=== PATIENT | female | born 1965 | race Caucasian/White ===

== ENCOUNTER 2016-10-22 13:46 | Emergency (ER) | payer MEDICAID ==
[2016-07-25 13:01] VITALS: BMI 46.9
[~2016-10-22 13:46] MED LIST: ABILIFY20 MG; BACTRIM DS TABL1 TAB PO; DEPAKOTE500 MG PO; DESERYL100 MG PO; HYDROCODONE-APA1 TAB PO; HYDROXYZINE HCL50 MG PO; INDOCIN25 MG PO; NEURONTIN800 MG PO; REPREXAIN 10-21 EACH PO
[2016-10-22 15:26] LABS: BASOPHILS 0.1 % (0.0-2.0); EOSINOPHILS 2.3 % (0-7); HEMATOCRIT 36.5 % (36.0-48.0); HEMOGLOBIN 12.3 g/dL (12-16); IMMATURE GRANULOCYTES 0.5 % (0-5); LYMPHOCYTES 18.6 % (15-50); MCH 30.4 pg (26.0-34.0); MCHC 33.7 g/dL (31.0-37.0); MCV 90.3 fL (80.0-100.0); MEAN PLATELET VOLUME 8.9 fL (7.4-10.4); MONOCYTES 5.3 % (2-11); NEUTROPHILS 73.2 % (40-80); PLATELET COUNT 314 10x3/uL (130-400); RBC 4.04 10x6/uL (4.00-5.40); RDW 12.8 % (11.5-14.5); WBC 12.3 10x3/uL (4.8-10.8)
[2016-10-22 15:42] LABS: ALBUMIN 3.2 g/dL (3.4-5.0); ALKALINE PHOSPHATASE 83 U/L (46-116); ALT (SGPT) 15 U/L (10-68); CALC OSMOLALITY 274 mosm/kg (275-300); CALCIUM 9.2 mg/dL (8.5-10.1); CARBON DIOXIDE 25.8 mmol/L (21.0-32.0); CHLORIDE - SERUM 101 mmol/L (98-107); CREATININE - SERUM 0.7 mg/dL (0.6-1.3); GLUCOSE 82 mg/dL (74-106); POTASSIUM - SERUM 4.1 mmol/L (3.5-5.1); PROTEIN - SERUM 7.7 g/dL (6.4-8.2); SODIUM 139 mmol/L (136-145); UREA NITROGEN 6 mg/dL (7-18); eGFR NON AFRICAN AMERICAN > 90 mL/min (90-120)
== END 2016-10-22 17:44 | disposition home or self-care (01) ==
LOC: D.ER 13:46
PROVIDERS: Nurse Practitioner Acute Care
DX: L03.113 Cellulitis of right upper limb (principal); F17.200 Nicotine dependence, unspecified, uncomplicated; I50.9 Heart failure, unspecified

== ENCOUNTER 2017-08-20 13:12 | Emergency (ER) | payer MEDICAID ==
[2016-07-25 13:01] VITALS: BMI 46.9
[2017-08-20 13:50] LABS: BASOPHILS 0.1 % (0-2); EOSINOPHILS 3.1 % (0-7); HEMATOCRIT 40.7 % (36.0-48.0); HEMOGLOBIN 13.8 g/dL (12-16); IMMATURE GRANULOCYTES 0.3 % (0-5); LYMPHOCYTES 41.7 % (15-50); MCH 30.8 pg (26.0-34.0); MCHC 33.9 g/dL (31.0-37.0); MCV 90.8 fL (80.0-100.0); MEAN PLATELET VOLUME 8.9 fL (7.4-10.4); MONOCYTES 8.5 % (2-11); NEUTROPHILS 46.3 % (40-80); PLATELET COUNT 327 10x3/uL (130-400); RBC 4.48 10x6/uL (4.00-5.40); RDW 12.5 % (11.5-14.5); WBC 7.2 10x3/uL (4.8-10.8)
[2017-08-20 14:04] LABS: ALBUMIN 3.4 g/dL (3.4-5.0); ANION GAP 14.5 mmol/L (8-16); BILIRUBIN - TOTAL 0.13 mg/dL (0.2-1.3); CALCIUM 8.9 mg/dL (8.5-10.1); CARBON DIOXIDE 27.1 mmol/L (21.0-32.0); CREATININE - SERUM 0.9 mg/dL (0.6-1.3); POTASSIUM - SERUM 4.6 mmol/L (3.5-5.1); PROTEIN - SERUM 7.4 g/dL (6.4-8.2)
[2017-08-20 15:22] LABS: APPEARANCE CLEAR (CLEAR); BILIRUBIN NEGATIVE (NEGATIVE); COLOR YELLOW (YELLOW); GLUCOSE NEGATIVE (NEGATIVE); KETONE NEGATIVE (NEGATIVE); NITRITE NEGATIVE (NEGATIVE); PROTEIN NEGATIVE (NEGATIVE); UROBILINOGEN NORMAL (NORMAL)
[2017-08-20 15:24] LABS: BACTERIA FEW /hpf (NONE SEEN); EPITHELIAL CELLS 0-5 /hpf (0-5); RED CELLS - URINE OCC /hpf (0-5)
[2017-08-20 15:41] LABS: UDS - AMPHET POSITIVE QUAL (NEGATIVE); UDS - BARB NEGATIVE QUAL (NEGATIVE); UDS - BENZO NEGATIVE QUAL (NEGATIVE); UDS - COCAINE NEGATIVE QUAL (NEGATIVE); UDS - OPIATE NEGATIVE QUAL (NEGATIVE); UDS - PCP NEGATIVE QUAL (NEGATIVE); UDS - THC NEGATIVE QUAL (NEGATIVE)
== END 2017-08-20 21:04 | disposition short-term general hospital (02) ==
LOC: D.ER 13:12
PROVIDERS: Family Medicine
DX: F31.9 Bipolar disorder, unspecified (principal); I50.9 Heart failure, unspecified; F17.200 Nicotine dependence, unspecified, uncomplicated

== ENCOUNTER 2019-03-26 00:06 | Inpatient (IN) | payer MEDICARE, MEDICAID ==
[~2019-03-26] VITALS: Ht 167.6 cm; Wt 122.7 kg
--- NOTE | ~2019-03-26 | HEMODYNAMI ---
PATIENT:ALEXIA GARG MEDICAL RECORD: [id number] : 61 LOCATION:D.MS [place]2206 ADMISSION DATE: 03/26/19 Generatedon:03/26/201910:52 Patient name: ALEXIA GARG Patient #: [id number] SSN: : 1965 Date of study: 03/26/2019 Page: Of Hemodynamic Procedure Report Patient Data Patient Demographics Procedure consent was obtained First Name: ALEXIA Gender: Female Last Name: BRITANY : 1965 Middle Initial: STEFFANIE Age: 53 year(s) Patient #: [id number] Race: Unknown Additional ID: [id number] Contact details [address]: [address] [place] [address] State: [place] City: [place] Zip code: [address] Past Medical History Allergies Allergen Reaction Date Comments Reported Other allergy 03/26/2019 ASA,TYLENOL,AND GABAPENTON Admission Admission Data Admission Date: 03/26/2019 Admission Time: 2:10 Room #: D.2206 Procedure Procedure Types Cath Procedure Peripheral Cath Diagnostic Procedure Miscellaneous Aspiration/Injection (Joint) Procedure Description Procedure Date Procedure Date: 03/26/2019 Procedure Start Time: 10:36 Procedure Staff Name Function Anita Hairston MD Performing Physician Lazaro Galeana RT Monitor Procedure Data Cath Procedure Fluoroscopy Diagnostic fluoroscopy Total fluoroscopy Time: 0.4 time: 0.4 min min Diagnostic fluoroscopy Total fluoroscopy dose: 16 dose: 16 mGy mGy Hemodynamics Rest Pre Cath Intra NCS Post Cath Procedure Log Time Note 10:05:45 Procedure type changed to Cath procedure, Peripheral Cath Diagnostic Procedure, Miscellaneous, Aspiration/Injection (Joint) 10:22:23 Lazaro Galeana RT (R) (CV) sent for patient. Start room use. 10:24:30 Patient received from Med/Surg to IR Alert and oriented. Tansferred to table in Supine position. 10:24:31 Correct patient and procedure confirmed by team. 10:24:35 Signed procedure consent form obtained from patient. 10:24:40 Full Disclosure recording started 10:24:40 - 10:24:41 Pre-procedure instructions explained to patient. 10:24:42 Pre-op teaching completed and patient verbalized understanding. 10:25:05 Patient allergic to Other allergyASA,TYLENOL,AND GABAPENTON 10:25:09 Is patient on blood thinner?No 10:25:21 Right Hip was prepped with chlora-prep and draped in sterile fashion. 10:36:11 Physician arrived 10:36:11 --------ALL STOP TIME OUT------ 10:36:12 Final Timeout: patient, procedure, and site verified with staff and physician. All members of the team are in agreement. 10:36:13 Right groin site verified by team. 10:36:18 Sedation plan: Local Anesthetic Medication:Lidocaine 10:36:26 Procedure started. 10:36:30 Local anesthetic to right GROIN with Lidocaine 1% by Anita Hairston MD.INITIAL ACCESS ONLY 10:36:42 SAFE-T PLUS MYELOGRAM TRAY opened to sterile field. 10:49:40 Procedure ended.(Physican Out) 10:50:13 Fluoroscopy time 00.40 minutes. 10:50:25 Fluoroscopy dose: 16 mGy 10:50:25 Flurop Dose total: 16 10:51:44 BANDAIDE APPLIED TO SITE SITE STABLE 10:51:49 Report given to Med/Surg. 10:51:53 Patient transfered to Med/Surg with Bed. Device Usage Item Name Manufacture Quantity Catalog Hospital Part Current Minimal Lot# / Number Charge Number Stock Stock Serial# Code SAFE-T CareFusion 1 [id number] PLUS MYELOGRAM TRAY Signature Audit Lawrence Stage Time Signature Unsigned Intra-Procedure 03/26/2019 Lazaro 10:52:09 AM Kervin RT (R) (CV) Signatures Monitor : Lazaro Signature : Kervin RT Date : Time : [place] [address] [place] [address]
[~2019-03-26 00:06] MED LIST changes: -DESERYL100 MG PO; +TRAZODONE HCL150 MG PO
--- NOTE | 2019-03-26 00:25 | NUR ---
PT TO XRAY
[2019-03-26 01:18] LABS: BASOPHILS 0.2 % (0-2); EOSINOPHILS 2.6 % (0-7); HEMATOCRIT 35.2 % (36.0-48.0); IMMATURE GRANULOCYTES 0.3 % (0-5); MCH 30.5 pg (26.0-34.0); MCHC 34.1 g/dL (31.0-37.0); MCV 89.3 fL (80.0-100.0); MEAN PLATELET VOLUME 9.4 fL (7.4-10.4); MONOCYTES 10.5 % (2-11); NEUTROPHILS 54.4 % (40-80); RBC 3.94 10x6/uL (4.00-5.40); RDW 14.1 % (11.5-14.5); WBC 10.5 10x3/uL (4.8-10.8)
[2019-03-26 01:19] LABS: PLATELET COUNT 237 10x3/uL (130-400)
[2019-03-26 01:33] LABS: ALBUMIN 3.6 g/dL (3.4-5.0); ALKALINE PHOSPHATASE 58 U/L (46-116); ALT (SGPT) 13 U/L (10-68); CALC OSMOLALITY 279 mosm/kg (275-300); CALCIUM 8.4 mg/dL (8.5-10.1); CARBON DIOXIDE 28.3 mmol/L (21.0-32.0); CHLORIDE - SERUM 105 mmol/L (98-107); CREATININE - SERUM 0.8 mg/dL (0.6-1.3); GLUCOSE 120 mg/dL (74-106); POTASSIUM - SERUM 4.1 mmol/L (3.5-5.1); PROTEIN - SERUM 6.9 g/dL (6.4-8.2); SODIUM 139 mmol/L (136-145); UREA NITROGEN 15 mg/dL (7-18); eGFR NON AFRICAN AMERICAN 79 mL/min (90-120)
[2019-03-26 01:56] LABS: APPEARANCE CLEAR (CLEAR); BILIRUBIN NEGATIVE (NEGATIVE); COLOR YELLOW (YELLOW); GLUCOSE NEGATIVE (NEGATIVE); KETONE NEGATIVE (NEGATIVE); NITRITE NEGATIVE (NEGATIVE); PROTEIN NEGATIVE (NEGATIVE)
[2019-03-26 02:01] LABS: BACTERIA NONE SEEN /hpf (NONE SEEN); EPITHELIAL CELLS 0-5 /hpf (0-5); RED CELLS - URINE NONE SEEN /hpf (0-5); WHITE CELLS - URINE 0-5 /hpf (0-5)
--- NOTE | 2019-03-26 02:31 | NUR ---
REPORT CALLED TO KENZIE MCKEON.
[2019-03-26 03:02] VITALS: BP 148/84; Ht 167.6 cm; Wt 122.7 kg
--- NOTE | 2019-03-26 03:13 | NUR ---
PT ARRIVED TO FLOOR WITHOUT DISTRESS, ALERT AND ORIENTED. TRANSFERED PT TO BED FROM [facility]. IV RIGHT SHOULDER SL. PT INCONTINENT OF BOWEL, PROVIDED AGUEDA CARE AND CHANGED LINEN. CECILIA ON. CL IN REACH, WILL CTM
[2019-03-26 05:23] VITALS: BP 148/84
[2019-03-26 08:44] VITALS: BP 146/59
[2019-03-26] MEDS ORDERED: DEPAKOTE500 MG PO (09:06)
[2019-03-26] MEDS ORDERED: LYRICA50 MG PO (09:06)
[2019-03-26] MEDS ORDERED: ZANAFLEX4 MG PO (09:07)
[2019-03-26] MEDS ORDERED: LATUDA80 MG PO (09:07)
[2019-03-26] MEDS ORDERED: CYMBALTA60 MG PO (09:08)
[2019-03-26] MEDS ORDERED: FUROSEMIDE40 MG PO (09:08)
[2019-03-26 10:21] LABS: UDS - AMPHET NEGATIVE QUAL (NEGATIVE); UDS - BARB NEGATIVE QUAL (NEGATIVE); UDS - BENZO NEGATIVE QUAL (NEGATIVE); UDS - COCAINE NEGATIVE QUAL (NEGATIVE); UDS - OPIATE POSITIVE QUAL (NEGATIVE); UDS - PCP NEGATIVE QUAL (NEGATIVE); UDS - THC NEGATIVE QUAL (NEGATIVE)
--- NOTE | 2019-03-26 10:24 | NUR ---
TO IR PER BED FOR PROCEDURE. PT REMAINS NPO FOR POSSIBLE SURG
--- NOTE | 2019-03-26 11:26 | NUR ---
RETURNED FROM IR PER BED. PREOP FOR SURG
--- NOTE | 2019-03-26 11:48 | NUR ---
MONITOR SHOWS SR RATE 68. RESTING WITH EYES CLOSED BUT AROUSES EASILY
--- NOTE | 2019-03-26 11:55 | NUR ---
TO SURGERY PER BED
--- NOTE | 2019-03-26 13:29 | NUR ---
PLASMA BLADE SET6/8 BOVIE PAD LEFT THIGH [id number] EXP 11/05/20
--- NOTE | 2019-03-26 17:30 | NUR ---
XRAY COMPLETED ORDERED. SWITCHED PT TO NC @4L WITH PULSE OX OF 100% WILL CONTINUE TO TAPER AVAILABLE. DEMEROL HELPED WITH PAIN AND SHIVERING AND COLDNESS. WARM BLANKETS IN PLACE. PT NOW RESTING QUIETLY IN BED WITH EYES CLOSED. WILL CTM.
[2019-03-26 18:06] VITALS: BP 138/68
--- NOTE | 2019-03-26 18:42 | NUR ---
RECEIVED PT BACK FROM PACU. PT REQUESTED PAIN MEDICATIONA ND STATED SHE IS STILL HURTING, PT IN AND OUT OF SLEEP WHILE DOING HANDOFF WITH PACU NURSE. PT HAS ZANAFLEX ORDERED, ADVISED I CAN GIVE HER THAT BUT WILL WAIT ON PAIN MEDS DUE TO THE FACT SHE ALSO HAD A BLOCK. NO OTHER NEEDS CONTINUE WITH PLAN OF CARE
[2019-03-26 19:14] LABS: % SATURATION 27 % (15-55); IRON 87 ug/dl (35-150); TOTAL IRON BIND CAPACITY 311 ug/dl (260-445); UNSAT IRON BIND CAPACITY 224 ug/dl (150-375)
--- NOTE | 2019-03-26 19:40 | NUR ---
LYING IN BED. ALERT BUT CONFUSED AT TIMES. STATES HER CATHETER IS LEAKING. DIAZ CATHETER WAS LEAKING INTO BED. DIAZ CATH REMOVED AND NEW 16 SAO TOMEAN DIAZ INSERTED AT THIS TIME WITH IMMEDIATE RETURN OF CLOUDY YELLOW URINE. PT KYLIE WELL AND STATES IT FELT BETTER. RESP EVEN AND NONLABORED. PREVENA WOUND VAC NOTED TO RT THIGH/HIP REGION WITH NO DRAINAGE NOTED. PEDAL PULSES WNL. 1/2 NS @ 50 MLHR INFUSING IN LT AC WITHOUT DIFF. SALINE LOCK NOTED TO RT FOREARM. NO EDEMA NOTED. CECILIA ALARM IN USE FOR PT SAFETY. SIGNIFICANT OTHER AT BEDSIDE.
[2019-03-26 21:25] VITALS: BP 107/56
--- NOTE | 2019-03-26 23:45 | NUR ---
HAS BEEN EATING SANDWICH AND SNACKS. C/O PAIN "ALL OVER". MEDICATED WITH OXY IR 5MG ORDERED. ARGUING WITH SIG OTHER AT BEDSIDE.
--- NOTE | 2019-03-27 01:10 | NUR ---
SECURITY CALLED DUE TO PT AND SIG OTHER ARGUING AND YELLING. SIG OTHER HAD BEEN ADVISED TO LEAVE EARLIER. SIG OTHER ESCORTED OUT PER SECURITY.
[2019-03-27 02:22] VITALS: BP 152/73
--- NOTE | 2019-03-27 05:30 | NUR ---
MEDICATED WITH OXY IR 10 MG FOR C/O PAIN IN RT HIP. EXTREMELY TALKATIVE WITH FLIGHT OF IDEAS. VERBALLY DISRUPTIVE. CL IN REACH.
[2019-03-27 05:55] VITALS: BP 133/68
--- NOTE | 2019-03-27 06:31 | OP ---
PATIENT NAME: ALEXIA GARG MEDICAL RECORD: [id number] :61 LOCATION:D.MS [place]6 ADMISSION DATE:03/26/19 SURGEON: BASILIO NIETO DO DATE OF OPERATION: 03/26/2019 PROCEDURE PERFORMED: Right total hip arthroplasty. PREOPERATIVE DIAGNOSIS: Right hip avascular necrosis femoral head. POSTOPERATIVE DIAGNOSIS: Right hip avascular necrosis femoral head. INDICATIONS: Ms. Garg is a 53-year-old female who has had AVN of the right femoral head for some time. She has been seen by another orthopedic surgeon that she said would not do anything for her because of her weight and she fell last night on her hip and could not bear weight after falling on it. She has been dealing with this for quite some time. 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 I did inform her that I may not be able to get her to the proper length due to her shortening of the hip. She is aware that and the risk of damage to nerves and vessels in the area, need for further surgery, fracture, bleeding and blood clots and even . She is aware that risks and signed consent. SURGEON: Basilio Nieto DO DESCRIPTION OF PROCEDURE: The patient was taken to the operative suite, laid in supine position, sedated and intubated and then moved over to the [place] table. The right hip was prepped and draped in sterile fashion. A time out was performed, everyone was in agreement as to the correct side, site, patient and procedure. Incision then began over the tensor fascia jesse. Careful dissection was made down to the fascia, this was incised. Muscle belly was taken posteriorly and then the fascia anteriorly opening up the rectus interval. Rectus was then opened and taken medially and the tensor fascia jesse laterally. Then, I encountered the ascending branch of the lateral femoral circumflex. This was tied off and coagulated with the Aquamantys. The capsule was then exposed with Homans' around the neck and the capsule was then opened and tagged. The patient has severe femoral head deformity. The neck cut was made and the neck was removed and then all the soft tissue that remained what was left of the head was removed. The acetabulum was somewhat dysplastic and this took a lot of debriding in order to get to the acetabulum due to all the soft tissue. What I assume was the femoral head pieces that were left around the capsule. We then medialized and then reamed up to a 53 and then impacted a 54 osteotech cup and put 2 screws in the posterior superior quadrant, securing the cup. It was a very secure and tight and then a liner was placed and impacted. The femur was then exposed first using a canal finder Java[employer] cutter, then broaching to a 15. A 14 was trialled. This seemed to be quite a bit short with a -3 noticing that was quite a bit short decided to go up to a 15. Since 14 was loose. We dislocated the hip. I went up to 15 and then with did a +6 neck and filled it as long as we can get her in the close we get to equaling her leg lengths. This hip was then reduced and x-ray appeared that she had a lateral wall fracture of the femur; however, it was not confirmed. In doing that just to be safe, I put 2 abdominal cables around the femur around the stem 1 just below the lesser and then 1 more distal and OPERATIVE REPORT [id number] ALEXIA GARG tightening them down and cramping in the cut and this was then x-rayed and no fractures were seen. Following that we could tell if there is soft tissue in the area, but either way was secured and then the site was thoroughly irrigated and vancomycin and tobramycin powder was placed as well as Surgicel powder. The capsule was left open and then the fascia was closed with 0 Vicryl in a rfhyya-yu-zwlwa and running locking stitch and then the skin was closed with 2-0 Vicryl in inverted interrupted fashion, 4-0 Monocryl in the skin. A Prevena VAC was placed on the patient. She was then awakened and taken to recovery in stable condition. COMPLICATIONS: Periprosthetic femur fracture with fixation. The blood loss approximately 400 mL. COMPLICATIONS: As above. TRANSINT:[id number] Voice Confirmation ID: [id number] DOCUMENT ID: [id number] BASILIO NIETO DO at 0631 CC: [id number] DICTATION DATE: 03/26/19 1649 TALENT ACQUISITION DIRECTOR: 03/26/19 2210 ADM IN [place] [id number] [place] [id number]
--- NOTE | 2019-03-27 07:42 | NUR ---
AWAKE AND ALERT. ORIENTED X3. NO C/O AT THIS TIME. LLUNGS ARE CLEAR BILATERALLY, NO COUGH NOTED. SKIN IS INTACT WITHOUT REDNESS EXCEPT INCISION TO RIGHT HIP WHICH HAS A PROVEENA IN PLACE WITH SCANT DRAINAGE. IV TO RIGHT FOREARM IS PATENT WITHOUT REDNESS AT INSERTION SITE. DENIES NEEDS. DIAZ PATETN WITH CLEAR YELLOW URINE.
[2019-03-27 08:00] LABS: CALC OSMOLALITY 273 mosm/kg (275-300); CALCIUM 7.4 mg/dL (8.5-10.1); CARBON DIOXIDE 25.6 mmol/L (21.0-32.0); CHLORIDE - SERUM 102 mmol/L (98-107); CREATININE - SERUM 0.8 mg/dL (0.6-1.3); GLUCOSE 120 mg/dL (74-106); POTASSIUM - SERUM 4.7 mmol/L (3.5-5.1); SODIUM 136 mmol/L (136-145); UREA NITROGEN 16 mg/dL (7-18); eGFR NON AFRICAN AMERICAN 79 mL/min (90-120)
[2019-03-27 08:04] LABS: HEMATOCRIT 30.6 % (36.0-48.0); MCH 30.6 pg (26.0-34.0); MCHC 32.7 g/dL (31.0-37.0); MCV 93.6 fL (80.0-100.0); MEAN PLATELET VOLUME 9.9 fL (7.4-10.4); PLATELET COUNT 101 10x3/uL (130-400); RBC 3.27 10x6/uL (4.00-5.40); RDW 14.6 % (11.5-14.5)
--- NOTE | 2019-03-27 08:58 | NUR ---
REQUESTED AND GIVEN 10MG OXY IR PO FOR C/O RIGHT HIP PAIN LEVEL 10. WILL MONITOR.
[2019-03-27 09:35] LABS: LYMPHOCYTES 35 % (15-50); MONOCYTES 10 % (2-11); NEUTROPHILS 54 % (40-80); PLATELET ESTIMATE NORMAL; PLATELET MORPHOLOGY PLT CLUMPS PRESENT
[2019-03-27 09:36] LABS: ANISOCYTOSIS OCC
[2019-03-27 09:41] VITALS: BP 130/79
--- NOTE | 2019-03-27 12:20 | NUR ---
C/O PAIN TO RIGHT HIP LEVEL 10. ICE APPLIED TO AREA. WILL HAVE TO WAIT A BIT ON PRN MEDS. WILL MONITOR.
--- NOTE | 2019-03-27 13:06 | NUR ---
REQUESTED AND GIVEN 10MG OXY IR AND VISTIRIL PO FOR C/O RIGHT HIP PAIN LEVEL 10. WILL MONITOR.
[2019-03-27 13:51] VITALS: BP 122/62
--- NOTE | 2019-03-27 16:56 | MORECARE ---
CASE MANAGEMENT DISCHARGE SUMMARY PATIENT: ALEXIA GARG STEFFANIE UNIT: [id number] ADM DATE: 03/26/19 AGE: 53 : 61 SEX: F ROOM/BED: D.2206 AUTHOR: JASMYN MALIN PHYSICIAN: REFERRING PHYSICIAN: PATRICK AHUMADA MD DATE OF SERVICE: 03/27/19 Discharge Plan Patient Name: ALEXIA GARG Facility: [facility] : 1965 Planned Disposition: Inpatient Rehab Anticipated Discharge Date: Discharge Date: Expected LOS: Initial Reviewer: [email or web address] Initial Review Date: 03/26/2019 Generated: 03/27/19 5:56 pm Patient Name: ALEXIA GARG Page [phone] at 1656 All edits/amendments must be made on the electronic document DICTATION DATE: 03/27/191655 CIGAR PACKER AND SORTER: HEATHER 03/27/191655 RPT#: [id number] DC DATE: STATUS: ADM IN [facility] [address] [place] [address] END OF REPORT
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
[2019-03-27 17:46] VITALS: BP 133/69
--- NOTE | 2019-03-27 18:00 | NUR ---
REQUESTED AND GIVEN 10MG OXY IR WITH VISTIRIL PO FOR C/O RIGHT HIP PAIN LEVEL 10. WILL MONITOR. REFUSED TO EAT ANY OF HER DINNER TRAY. NO CHANGES NOTED.
--- NOTE | 2019-03-27 19:35 | NUR ---
DROWSY FROM PAIN MEDS RECEIVED PRIOR TO SHIFT CHANGE. ORIENTED X4. RESP EVEN AND NONLABORED. PREVENA WOUND VAC NOTED TO RT HIP WITH NO DRAINAGE NOTED. DIAZ PATENT AND DRAINING CLEAR YELLOW URINE. TELEMETRY SHOWS SR WITH RATE OF 90. 1/2 NS @ 50 ML/HR INFUSING IN RT FOREARM WITHOUT DIFF. NO DISTRESS. CL IN REACH. CECILIA ALARM ON FOR PT SAFETY.
[2019-03-27 21:13] VITALS: BP 117/70
--- NOTE | 2019-03-28 00:25 | NUR ---
MEDICATED WITH OXYCONTIN AND VISTARIL FOR C/O HIP PAIN RATING 10 ON PAIN SCALE. CECILIA ALARM ON. PT VERY TALKATIVE WITH FLIGHT OF IDEAS. SR ELEVATED X2. CL IN REACH.
[2019-03-28 00:29] VITALS: BP 124/74
[2019-03-28 05:28] VITALS: BP 122/56
[2019-03-28 06:32] LABS: BASOPHILS 0.2 % (0-2); EOSINOPHILS 0.1 % (0-7); HEMATOCRIT 26.1 % (36.0-48.0); HEMOGLOBIN 8.8 g/dL (12-16); IMMATURE GRANULOCYTES 0.2 % (0-5); LYMPHOCYTES 19.3 % (15-50); MCH 30.7 pg (26.0-34.0); MCHC 33.7 g/dL (31.0-37.0); MEAN PLATELET VOLUME 9.6 fL (7.4-10.4); MONOCYTES 17.7 % (2-11); NEUTROPHILS 62.5 % (40-80); RBC 2.87 10x6/uL (4.00-5.40); RDW 14.2 % (11.5-14.5); WBC 11.2 10x3/uL (4.8-10.8)
[2019-03-28 06:41] LABS: ANION GAP 13.8 mmol/L (8-16); CALCIUM 7.1 mg/dL (8.5-10.1); CARBON DIOXIDE 25.7 mmol/L (21.0-32.0); POTASSIUM - SERUM 4.5 mmol/L (3.5-5.1)
[2019-03-28 06:43] LABS: CREATININE - SERUM 1.1 mg/dL (0.6-1.3)
[2019-03-28 06:46] LABS: MCV 90.9 fL (80.0-100.0); PLATELET COUNT 198 10x3/uL (130-400)
--- NOTE | 2019-03-28 10:20 | NUR ---
Rehab Prescreening Consult recieved and the chart has been reviewed. She is a good rehab candidate, but is private insurance and will require a preauth. Once the OT eval is completed all information will be submitted to the insurance for review. Discussed with the CM Kelly Edmondson RN. Dalia Baxter RN Clinical Liaison, Rehab
[2019-03-28 10:43] VITALS: BP 125/76
--- NOTE | 2019-03-28 11:11 | NUR ---
DIAZ CATH DISCONTINUED AT THIS TIME. WILL CONTIUE TO OBSERVE FOR NEEDS. C/L IN REACH AT BEDSIDE.
[2019-03-28 14:27] VITALS: BP 99/58
[2019-03-28 15:48] VITALS: BP 109/67
--- NOTE | 2019-03-28 16:38 | NUR ---
I have reviewed this patient and I concur with the Shift Assessment completed by the Licensed Practical Nurse today this shift.
--- NOTE | 2019-03-28 16:57 | NUR ---
OT NOTE: PT COMPLETED BED MOB TASK WITH MOD A. PT COMPLETED FACE WASHING AND HAIR GROOMING WITH SET UP. THANK YOU, GUSTAVO CORONA
--- NOTE | 2019-03-28 19:25 | NUR ---
16 FR DIAZ CATH INSERTED PER STERILE TECHNIQUE WITH IMMEDIATE RETURN OF CLEAR YELLOW URINE. PT KYLIE WELL. ALERT AND ORIENTED X4. DENIES PAIN AT THIS TIME. RESP EVEN AND NONLABORED. ENCOURAGED USE OF FLUTTER VALVE, COUGH AND DEEP BREATHE. SHE VERBALIZED UNDERSTANDING. PREVENA WOUND VAC NOTED TO RT HIP. PEDAL PULSES WNL. SALINE LOCK NOTED TO LT ARM AND RT FOREARM. TELEMETRY SHOWS SR WITH RATE OF 89. CECILIA ALARM IN USE FOR PT SAFETY. CL IN REACH.
[2019-03-28 20:38] VITALS: BP 113/41
--- NOTE | 2019-03-28 22:01 | NUR ---
MEDICATED WITH OXYCONTIN FOR C/O PAIN IN RT HIP. CL IN REACH.
[2019-03-29] VITALS: BP 91/53
--- NOTE | 2019-03-29 03:44 | NUR ---
REQUESTING PAIN MED BUT B/P TOO LOW TO MEDICATE AT THIS TIME. ATTEMPTED TO EDUCATE PT ON THIS BUT NOT RECEPTIVE. STILL SMILING AND TALKATIVE. CL IN REACH. WILL MONITOR B/P.
[2019-03-29 04:00] VITALS: BP 91/41
--- NOTE | 2019-03-29 04:33 | NUR ---
REQUESTING ICE CREAM AND COLA. REQEUST GRANTED. LAUGHING AND JOKING WITH STAFF. NO DISTRESS. CL IN REACH.
[2019-03-29 05:28] LABS: BASOPHILS 0.2 % (0-2); EOSINOPHILS 0.5 % (0-7); HEMATOCRIT 21.2 % (36.0-48.0); IMMATURE GRANULOCYTES 0.5 % (0-5); LYMPHOCYTES 15.4 % (15-50); MCH 31.5 pg (26.0-34.0); MCHC 34.9 g/dL (31.0-37.0); MCV 90.2 fL (80.0-100.0); MEAN PLATELET VOLUME 9.2 fL (7.4-10.4); MONOCYTES 14.2 % (2-11); NEUTROPHILS 69.2 % (40-80); PLATELET COUNT 183 10x3/uL (130-400); RBC 2.35 10x6/uL (4.00-5.40); RDW 13.8 % (11.5-14.5); WBC 10.6 10x3/uL (4.8-10.8)
[2019-03-29 05:32] LABS: HEMOGLOBIN 7.4 g/dL (12-16)
[2019-03-29 05:51] LABS: ANION GAP 12.4 mmol/L (8-16); CALCIUM 7.3 mg/dL (8.5-10.1); CARBON DIOXIDE 25.6 mmol/L (21.0-32.0)
[2019-03-29 06:07] VITALS: BP 112/49
--- NOTE | 2019-03-29 06:34 | NUR ---
NOTIFIED DR NIETO OF CRITICAL HGB OF 7.4 AND B/P TRENDING DOWN. NEW ORDER NOTED TO GIVE 2 UNITS OF PRBCS.
--- NOTE | 2019-03-29 08:35 | NUR ---
PT ALERT X 4. BREATH SOUNDS CLEAR BILAT. IV TO LEFT UPPER ARM, PATENT, DRESSING CDI. IV TO RIGHT FOREARM, SALINE LOCKED. PT REPORTING PAIN OF 10/10, BP LOW, TRANSFUSING PRBC PER ORDERS, WILL MONITOR. PREVENA WOUND VAC TO RIGHT GROIN/HIP AREA, DRESSING CDI. TRACE EDEMA TO BLE. BED LOW, CALL LIGHT IN REACH. NO OTHER NEEDS AT THIS TIME.
[2019-03-29 08:46] VITALS: BP 115/58
[2019-03-29 18:26] VITALS: BP 105/50
--- NOTE | 2019-03-29 20:02 | NUR ---
PT RESTING IN BED AAOX4, PT VERY PLEASENT AND TALKATIVE. RESP EVEN NON LABORED. NO DISTRESS NOTED AT THIS TIME
[2019-03-29 20:14] VITALS: BP 102/64
[2019-03-30 06:01] VITALS: BP 128/63
[2019-03-30 09:50] VITALS: BP 104/48
--- NOTE | 2019-03-30 10:00 | NUR ---
PT ALERT X 4. BREATH SOUNDS CLEAR BILAT. IV TO RIGHT HAND PATENT, DRESSING CDI. PT REPORTING PAIN OF 10/10, UNABLE TO MEDICATE WITH ORDERED OXY DUE TO BP, TREATED WITH MOTRIN PER ORDERS, WILL MONITOR. DIAZ IN PLACE. WOUND VAC IN PLACE TO RIGHT GROIN/HIP AREA. BED LOW, CALL LIGHT IN REACH. NO OTHER NEEDS AT THIS TIME.
[2019-03-30 12:07] LABS: BASOPHILS 0.1 % (0-2); HEMOGLOBIN 8.5 g/dL (12-16); IMMATURE GRANULOCYTES 0.5 % (0-5); LYMPHOCYTES 15.1 % (15-50); MCH 29.6 pg (26.0-34.0); MEAN PLATELET VOLUME 9.5 fL (7.4-10.4); MONOCYTES 14.8 % (2-11); NEUTROPHILS 67.5 % (40-80); RDW 14.5 % (11.5-14.5); WBC 9.9 10x3/uL (4.8-10.8)
[2019-03-30 12:10] LABS: MCV 87.1 fL (80.0-100.0); PLATELET COUNT 228 10x3/uL (130-400); RBC 2.87 10x6/uL (4.00-5.40)
[2019-03-30 12:16] LABS: ANION GAP 11.5 mmol/L (8-16); CALCIUM 7.8 mg/dL (8.5-10.1); CARBON DIOXIDE 27.9 mmol/L (21.0-32.0); CREATININE - SERUM 0.9 mg/dL (0.6-1.3); POTASSIUM - SERUM 4.4 mmol/L (3.5-5.1)
[2019-03-30 15:17] LABS: APPEARANCE CLEAR (CLEAR); BILIRUBIN NEGATIVE (NEGATIVE); COLOR YELLOW (YELLOW); GLUCOSE NEGATIVE (NEGATIVE); KETONE NEGATIVE (NEGATIVE); NITRITE NEGATIVE (NEGATIVE); PROTEIN TRACE mg/dL (NEGATIVE)
[2019-03-30 15:20] LABS: RED CELLS - URINE 0-5 /hpf (0-5); WHITE CELLS - URINE 0-5 /hpf (0-5)
[2019-03-30 15:21] LABS: BACTERIA FEW /hpf (NONE SEEN)
[2019-03-30 18:47] VITALS: BP 97/62
[2019-03-30 20:00] VITALS: BP 108/58
--- NOTE | 2019-03-30 20:00 | NUR ---
PT SITTING UP IN BED WITHOUT DISTRESS. ALERT AND ORIENTED. REQUESTING PAIN MEDICINE FOR PAIN IN RIGHT HIP 04/19. VSS. GAVE OXY ORDERED. DENIES OTHER NEEDS. CL IN REACH, WILL CTM
[2019-03-30 21:49] VITALS: BP 103/72
[2019-03-31] VITALS: BP 108/52
[2019-03-31 04:00] VITALS: BP 99/62
--- NOTE | 2019-03-31 07:32 | NUR ---
PATIENT RESTING WITH EYES CLOSED. NO DISTRESS NOTED. CL IN REACH.
--- NOTE | 2019-03-31 07:44 | NUR ---
PREVENA VAC TO RIGHT HIP INTACT.
[2019-03-31 07:58] LABS: CALC OSMOLALITY 274 mosm/kg (275-300); CHLORIDE - SERUM 102 mmol/L (98-107); CREATININE - SERUM 0.7 mg/dL (0.6-1.3); GLUCOSE 124 mg/dL (74-106); SODIUM 136 mmol/L (136-145); UREA NITROGEN 18 mg/dL (7-18); eGFR NON AFRICAN AMERICAN > 90 mL/min (90-120)
[2019-03-31 08:02] LABS: POTASSIUM - SERUM 3.7 mmol/L (3.5-5.1)
[2019-03-31 08:07] VITALS: BP 111/62
[2019-03-31 08:12] LABS: BASOPHILS 0.1 % (0-2); EOSINOPHILS 3.2 % (0-7); HEMATOCRIT 26.7 % (36.0-48.0); IMMATURE GRANULOCYTES 1.1 % (0-5); LYMPHOCYTES 19.8 % (15-50); MCH 29.5 pg (26.0-34.0); MCHC 33.7 g/dL (31.0-37.0); MCV 87.5 fL (80.0-100.0); MEAN PLATELET VOLUME 9.2 fL (7.4-10.4); MONOCYTES 16.9 % (2-11); NEUTROPHILS 58.9 % (40-80); RBC 3.05 10x6/uL (4.00-5.40); RDW 14.9 % (11.5-14.5); WBC 8.4 10x3/uL (4.8-10.8)
[2019-03-31 08:13] LABS: PLATELET COUNT 295 10x3/uL (130-400)
[2019-03-31] MEDS ORDERED: FERROUS SULFAT325 MG PO (09:56)
[2019-03-31] MEDS ORDERED: ROCEPHIN 1 GM/D51 G1 IV (09:56)
[2019-03-31] MEDS ORDERED: ELIQUIS2.5 MG PO (09:56)
[2019-03-31] MEDS ORDERED: Nicoderm [PBKC] TRANSDERM (09:56)
[2019-03-31] MEDS ORDERED: ALBUTEROL2.5 MG/3 M INH (09:56)
[2019-03-31] MEDS ORDERED: PROTONIX40 MG PO (09:57)
[2019-03-31] MEDS ORDERED: Senokot-S Tablet PO (09:57)
[2019-03-31] MEDS ORDERED: VISTARIL50 MG PO (09:57)
[2019-03-31] MEDS ORDERED: MIRALAX17 GM PO (09:57)
[2019-03-31] MEDS ORDERED: oxyCODONE IR PO (09:57)
[2019-03-31] MEDS ORDERED: IBUPROFEN600 MG PO (09:57)
--- NOTE | 2019-03-31 10:03 | NUR ---
OT NOTE: PT REMAINS VERY MANIC. FREQ CUES FOR PT TO PAY ATTN TO TASK, DEEPIKA WT BEARING PRECAUTIONS. REQUIRED MOD ASSIST FOR SUPINE TO SIT AND SIT TO SUPINE; FEEDING WITH SET UP; SIMPLE GROOMING WITH SET UP; MAX ASSIST WITH R LE DRESSING AND WILL REQUIRE HIP KIT FOR INCREASED INDEP WITH DRESSING. SIT TO STAND WITH MOD ASSIST X 2; CONSTANT CUES FOR HAND PLACEMENT ON WALKER. ATTEMPTED TO TAKE A FEW STEPS WITH MAX CUES FOR TTWB FOR R LE. PT DID MUCH BETTER WITH WT BEARING PRECAUTIONS, HOWEVER, ONLY ABLE TO ADVANCE FORWARD AND BACKWARD A FEW FT DUE TO REPORTS OF DIZZINESS. ALLOWED PT REST BREAK AND ATTEMPTED AGAIN. BETTER WITH SIDE STEPS VS FORWARD/BACKWARD STEPPING. EDISON ANDERSON, OTR/L
--- NOTE | 2019-03-31 10:06 | NUR ---
Per Nohelia Harding at [facility]. This patient has been approved for the ARU for 7 days. Auth # [id number]. Called Dash Edmondson the with this information. Dalia Baxter RN Clinical Liaison, Rehab
[2019-03-31 10:34] LABS: UDS - AMPHET NEGATIVE QUAL (NEGATIVE); UDS - BARB NEGATIVE QUAL (NEGATIVE); UDS - BENZO NEGATIVE QUAL (NEGATIVE); UDS - COCAINE NEGATIVE QUAL (NEGATIVE); UDS - OPIATE POSITIVE QUAL (NEGATIVE); UDS - PCP NEGATIVE QUAL (NEGATIVE); UDS - THC NEGATIVE QUAL (NEGATIVE)
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
--- NOTE | 2019-03-31 11:21 | NUR ---
UNABLE TO FLUSH IV AND IS LEAKING. UNABLE TO START ANOTHER IV. NOTIFIED DR NIETO AND KAILASH WAS DC'D WITH CIPRO STARTED PO.
--- NOTE | 2019-03-31 13:00 | NUR ---
I have reviewed this patient and I concur with the Shift Assessment completed by the Licensed Practical Nurse today this shift.
[2019-03-31 13:21] VITALS: BP 135/73
--- NOTE | 2019-03-31 15:27 | NUR ---
REPORT CALLED TO MARIANNA IN IP REHAB
--- NOTE | 2019-03-31 15:55 | NUR ---
DISCHARGE INSTRUCTIONS GIVEN TO PATIENT AND PATIETN TAKEN BY BED TO IP REHAB ROOM 0157X
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
== END 2019-03-31 15:56 | DRG 470 ==
LOC: D.ER 00:06 → D.MS 02:10
PROVIDERS: Family Medicine; Orthopaedic Surgery; Radiology Vascular & Interventional Radiology; ADMIT Internal Medicine Nephrology; ATTEND Internal Medicine Nephrology
PROC: 0SR90J9 Replacement of Right Hip Joint with Synthetic Substitute, Cemented, Open Approach (ICD-10-PCS; principal; 2019-03-26 10:20)
DX: S72.001A Fracture of unspecified part of neck of right femur, initial encounter for closed fracture (principal); M87.851 Other osteonecrosis, right femur; Z68.41 Body mass index [BMI] 40.0-44.9, adult; W19.XXXA Unspecified fall, initial encounter; E66.9 Obesity, unspecified; F60.3 Borderline personality disorder; I50.9 Heart failure, unspecified; M89.761 Major osseous defect, right lower leg

== ENCOUNTER 2019-03-31 15:36 | Inpatient (IN) | payer MEDICARE, MEDICAID ==
[~2019-03-31] VITALS: Ht 167.6 cm; Wt 122.5 kg
[~2019-03-31 15:36] MED LIST changes: +ALBUTEROL2.5 MG/3 M INH; +CYMBALTA60 MG PO; +ELIQUIS2.5 MG PO; +FERROUS SULFAT325 MG PO; +FUROSEMIDE40 MG PO; +IBUPROFEN600 MG PO; +LATUDA80 MG PO; +LYRICA50 MG PO; +MIRALAX17 GM PO; +Nicoderm [PBKC] TRANSDERM; +PROTONIX40 MG PO; +ROCEPHIN 1 GM/D51 G1 IV; +Senokot-S Tablet PO; +VISTARIL50 MG PO; +ZANAFLEX4 MG PO; +oxyCODONE IR PO
[2019-03-31 17:22] VITALS: BP 106/55; BMI 43.6
--- NOTE | 2019-03-31 19:55 | NUR ---
PT RESTING IN BED WITH EYES OPEN. ALERT AND ORIENTED X 3. VOICED COMPLAINT OF HIP PAIN LEVEL OF 8. MEDICATED PER NOV. WOUND VAC IS INTACT TO RIGHT HIP INCISION. VSS. NO FURTHER NEEDS VOICED. SR'S ARE UP X 3 IN BED. CALL LIGHT AND BEDSIDE TABLE ARE WITHIN EASY REACH.
[2019-03-31 20:05] VITALS: BP 108/80
--- NOTE | 2019-04-01 00:51 | NUR ---
I have reviewed this patient and I concur with the Shift Assessment completed by the Licensed Practical Nurse today this shift.
--- NOTE | 2019-04-01 03:10 | NUR ---
RESTING IN BED WITH EYES CLOSED.
--- NOTE | 2019-04-01 06:20 | NUR ---
PT IS RESTING IN BED WITH EYES OPEN. NO NEEDS VOICED.
[2019-04-01 06:58] LABS: BASOPHILS 0.2 % (0-2); HEMATOCRIT 25.4 % (36.0-48.0); HEMOGLOBIN 8.7 g/dL (12-16); IMMATURE GRANULOCYTES 1.4 % (0-5); LYMPHOCYTES 17.5 % (15-50); MCHC 34.3 g/dL (31.0-37.0); MCV 87.6 fL (80.0-100.0); MEAN PLATELET VOLUME 8.7 fL (7.4-10.4); MONOCYTES 18.3 % (2-11); NEUTROPHILS 60.6 % (40-80); PLATELET COUNT 321 10x3/uL (130-400); RDW 14.6 % (11.5-14.5); WBC 9.4 10x3/uL (4.8-10.8)
[2019-04-01 07:08] LABS: CALC OSMOLALITY 271 mosm/kg (275-300); CALCIUM 7.8 mg/dL (8.5-10.1); CARBON DIOXIDE 29.2 mmol/L (21.0-32.0); CHLORIDE - SERUM 101 mmol/L (98-107); CREATININE - SERUM 0.8 mg/dL (0.6-1.3); GLUCOSE 97 mg/dL (74-106); POTASSIUM - SERUM 4.3 mmol/L (3.5-5.1); SODIUM 135 mmol/L (136-145); UREA NITROGEN 18 mg/dL (7-18); eGFR NON AFRICAN AMERICAN 79 mL/min (90-120)
[2019-04-01 08:00] VITALS: BP 91/46
--- NOTE | 2019-04-01 08:15 | NUR ---
PT RESTING IN BED WITH EYES OPEN CALL LIGHT IN REACH WILL MONITER PT EATING BREAKFAST
[2019-04-01 09:58] VITALS: BMI 43.5
--- NOTE | 2019-04-01 14:01 | NUR ---
I have reviewed this patient and I concur with the Shift Assessment completed by the Licensed Practical Nurse today this shift.
--- NOTE | 2019-04-01 18:03 | NUR ---
PT RESTING IN BED WITH EYES OPEN CALL LIGHT IN REACH NO PROBLEMS WILL MONITER
--- NOTE | 2019-04-01 19:20 | NUR ---
PT SITTING UP IN BED WATCHING TV. CL IN REACH. DENIES NEEDS AT THIS TIME. DIAZ INTACT UNINE WNL. WOUND VAC TO RIGHT HIP INTACT. RESP EVEN AND UNLABORED. LUNGS CLEAR. BOWEL ACTIVE X4. A/O X4. WCTM
[2019-04-01 20:00] VITALS: BP 103/60
--- NOTE | 2019-04-02 05:04 | NUR ---
RESTING QUIETLY. CL IN REACH. NO DISTRESS NOTED. BED IN LOW. WCTM
[2019-04-02 07:36] LABS: BASOPHILS 0.2 % (0-2); EOSINOPHILS 2.2 % (0-7); HEMATOCRIT 25.9 % (36.0-48.0); HEMOGLOBIN 8.7 g/dL (12-16); LYMPHOCYTES 20.7 % (15-50); MCH 29.8 pg (26.0-34.0); MCHC 33.6 g/dL (31.0-37.0); MCV 88.7 fL (80.0-100.0); MEAN PLATELET VOLUME 8.8 fL (7.4-10.4); NEUTROPHILS 60.9 % (40-80); PLATELET COUNT 351 10x3/uL (130-400); RBC 2.92 10x6/uL (4.00-5.40); RDW 14.6 % (11.5-14.5)
[2019-04-02 07:50] LABS: CALC OSMOLALITY 272 mosm/kg (275-300); CALCIUM 7.9 mg/dL (8.5-10.1); CARBON DIOXIDE 30.1 mmol/L (21.0-32.0); CHLORIDE - SERUM 99 mmol/L (98-107); CREATININE - SERUM 0.7 mg/dL (0.6-1.3); GLUCOSE 114 mg/dL (74-106); POTASSIUM - SERUM 4.4 mmol/L (3.5-5.1); SODIUM 135 mmol/L (136-145); UREA NITROGEN 19 mg/dL (7-18); eGFR NON AFRICAN AMERICAN > 90 mL/min (90-120)
[2019-04-02 07:59] VITALS: BP 88/55
--- NOTE | 2019-04-02 10:55 | NUR ---
THE PATIENT APPEARED TO BE SLEEPING, BUT EASILY AWOKE WHEN STAFF ENTERED HER ROOM. BED IS IN THE LOW POSITION WITH SIDERAILS X2 AND RACHEL LIGHT WITHIN REACH. THE PATIENT WAS EDUCATED ON THE USE OF A CALL LIGHT AND DEMONSTRATES UNDERSTANDING VIA TEACHBACK METHOD. THE PATIENT APEPARS COMFORTABLE WITH NO QUESTIONS OR COCNERNS AT THIS TIME.
--- NOTE | 2019-04-02 14:05 | RHP ---
PATIENT: ALEXIA GARG MEDICAL RECORD: [id number] ACCOUNT: [id number] LOCATION:[facility]1114 : [birth year] ADMISSION DATE: 03/31/19 REHABILITATION HISTORY AND PHYSICAL EXAMINATION POST ADMISSION PHYSICIAN EXAMINATION DATE OF ADMISSION: 03/31/2019. ADMITTING DIAGNOSIS: Displaced fracture of the right femoral neck. HISTORY OF PRESENT ILLNESS: The patient is a 53-year-old female patient who arrived to the ED by ambulance on 03/26/2019 complaining of pain in her right hip and inability to bear weight. She had had hip pain for years, but fell on the day of admission and having more pain. She states that she was ambulating with a walker prior to the fall. This was exacerbated by any type of range of motion or log roll. X-rays showed a collapsed femoral head with a displaced right femoral neck fracture. She was taken to the OR. 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 Postop course has been complicated by acute blood loss anemia, H&H of 7 and 21. She received 2 units packed red blood cells, postop fever was noted with a T-max of 101.4. She had some hypotension. She had hyponatremia with a sodium of 130, hyperglycemia with blood sugar of 162. The patient also has a history of bipolar and manic episodes affecting her tolerance to therapy and toe-touch weightbearing status. Previously, she was living with her son and was moderately independent with ADLs and mobility using a rolling walker due to hip pain. Currently, she is mod to max assist for ADLs and mobility. She is toe-touch weightbearing on her right leg. Her pain level is 10/10 and she requires constant cues and reminder to maintain only toe-touch weightbearing on this extremity. COMORBIDITIES: In this patient include avascular necrosis of the right femur, congenital hip dysplasia, acute blood loss anemia, postop fever, hypotension, hyponatremia, urinary retention, recent fall, history of seizures, CHF, obesity, chronic back pain, bipolar, borderline personality disorder, and anemia. PAST MEDICAL HISTORY: Includes history of TIA, seizures, allergies, CHF, edema, asthma, bipolar. PAST SURGICAL HISTORY: Includes a left wrist scope and ankle scope. She has had multiple I&Ds in the past for staph. ALLERGIES: ASPIRIN, ACETAMINOPHEN, DECADRON, GABAPENTIN. CURRENT MEDICATIONS: Include Floranex 460 daily, Levaquin 750 mg daily. She is on polyethylene glycol 17 grams in 8 ounces of water daily. She is on a Nicoderm patch transdermally 14 mg daily, Latuda 80 mg daily, Cymbalta 60 mg daily, Protonix 40 mg daily, Zanaflex 4 mg q.4 hours p.r.n., Desyrel 150 mg q.h.s., Senokot 2 tabs q.h.s., Lyrica 50 mg b.i.d., ferrous sulfate 325 t.i.d., Depakote 50 mg b.i.d., Eliquis 2.5 mg b.i.d. She is on electrolyte protocol at this time, OxyIR 10 mg q.4 hours p.r.n. She is on ibuprofen 600 mg q.6 hours p.r.n. and Ventolin updrafts. HABITS: No current alcohol or tobacco use. HISTORY AND PHYSICAL [id number] ALEXIA GARG FAMILY HISTORY: Noncontributory. SOCIAL HISTORY: The patient hopes to return back home and get back to her prior level of functioning. REVIEW OF SYSTEMS: GENERAL: Does complain of weakness and fatigue. HEENT: Denies cold, cough, or congestion. CARDIOVASCULAR: Denies chest pain. PHYSICAL EXAMINATION: VITAL SIGNS: Stable, afebrile. GENERAL: A morbidly obese female, in no distress, alert upon exam. HEENT: Normocephalic and atraumatic. Mucosa moist. NECK: Supple, with no lymphadenopathy. LUNGS: Clear in upper reddy. No wheezing or rales. HEART: Regular rate and rhythm. No murmurs, rubs or gallops. ABDOMEN: Soft, benign, and nondistended. Positive bowel sounds times 4. EXTREMITIES: No clubbing, cyanosis or edema. Postop area looks pretty good. NEUROLOGIC: She is mostly intact. LABORATORY DATA: Her white count today is 9.4, H&H of 8.7 and 25.4, and platelet count was noted to be 321. Her sodium is 135, potassium 4.3, BUN and creatinine of 18 and 0.8, and blood sugar was noted to be 97. ASSESSMENT: This is a 53-year-old female patient admitted to the rehab with a working diagnosis of right hip fracture status post open reduction internal fixation. The patient has potential to make improvement. We instituted the following multidisciplinary therapies including, but not limited to physical, occupational, respiratory, speech, nutritional services, prosthetics and orthotics. Given her complex medical condition and risks for more complications, rehabilitation services cannot be provided at a low level of care such as assisted facility. PLAN: 1. Admit to [facility] rehab for an intensive inpatient therapy to include the following disciplines: A. Physical therapy to improve gait, all transfer skills and bed mobility to a modified independent level. B. Occupational therapy to improve activities of daily living to a modified independent level. C. Case management to assist with discharge planning and placement options. D. Nutrition to assist with nutritional needs. E. Rehabilitation nursing to assist in monitoring the patient's underlying medical conditions and to assist with any type of bowel or bladder management. 2. The patient's current medications and medical care will be continued. 3. The patient will be placed on standard fall precautions. 4. The patient's estimated length of stay is approximately 7-10 days. 5. We will discuss this patient during care team staff meeting this week. TRANSINT:[id number] Voice Confirmation ID: [id number] DOCUMENT ID: [id number] AMY notes whether there has been none or any medical/functional change since admission: HISTORY AND PHYSICAL [id number] ALEXIA GARG attests patient continues to be appropriate for IRF: - TEJAS BAUTISTA MD at 1405 CC: [id number] DICTATION DATE: 04/01/19 0833 MONTESSORI PROGRAM DIRECTOR: 04/01/19 0852 ADM IN [facility] [address] [place] [address]
--- NOTE | 2019-04-02 14:59 | NUR ---
CARE TEAM MEETING: PATIENT IS NEW TO UNIT AND WILL BE RA AT NEXT MEETING. WILL CONTINUE TO FOLLOW WITH PATIENT. CHALINO BALLARD, MOBILE PAINT SPECIALIST REHAB PD
--- NOTE | 2019-04-02 19:17 | NUR ---
PT COMPLAINING OF CHEST PAIN. NO NITRO ORDERED ON PT NOV. CARDIAC ENZYMES ORDERED AND EKG STAT. PT CLINCHING CHEST AND STATED SHE HAS CHF. NO OTHER SYMPTOMS AT THIS TIME. RESP EVEN AND UNLABORED. WILL CONTINUE TO MONITOR.
[2019-04-02 19:27] VITALS: BP 101/55
--- NOTE | 2019-04-02 19:28 | NUR ---
VITALS 101/55, PULSE 82, O2 100%, RESP 19
[2019-04-02 20:14] LABS: CKMB 1.3 U/L (0.0-3.6); CREATINE KINASE 243 UL (21-215); TROPONIN-I < 0.017 ng/mL (0.000-0.060)
--- NOTE | 2019-04-02 21:42 | NUR ---
PT STATES HER CHEST PAIN MIGHT BE GAS. PT IS HAVING GAS WHILE THIS NURSE WAS GIVING NIGHT MEDS. CHEST XRAY RESULTS CAME BACK NORMAL AND NO ADNORMAL SIGNS ON HER EKG. WCTM
--- NOTE | 2019-04-02 22:00 | NUR ---
PT ADMITTED THAT CHEST PAIN WAS PROBABLY GAS AND WAS PASSING GAS WHILE IN ROOM. DENIES ANY MORE SYMPTOMS OF CHEST PAIN OR ANYTHING. EKG NORMAL. CPOC
--- NOTE | 2019-04-03 03:40 | NUR ---
I have reviewed this patient and I concur with the Shift Assessment completed by the Licensed Practical Nurse today this shift.
[2019-04-03 04:16] LABS: CKMB 0.3 U/L (0.0-3.6); CREATINE KINASE 240 UL (21-215)
[2019-04-03 04:24] LABS: TROPONIN-I < 0.017 ng/mL (0.000-0.060)
--- NOTE | 2019-04-03 04:33 | NUR ---
PT COMPLAINED OF BED BEING WET AND NEED TO USE BATHROOM. ASSISTED PT OUT OF BED AND INTO BATHROOM. PT HAD LARGE BM. CHANGED LINENS ON BED. BACK IN BED. DIAZ INTACT. DENIES FURTHER NEEDS. WCTM
--- NOTE | 2019-04-03 06:34 | NUR ---
REMOVED DIAZ PER NURSE PROTOCOL. BLADDER TRAINING COMPLETED. TOLERATED WELL. WILL CONTINUE TO MONITOR. CATH INTACT.
[2019-04-03 08:00] VITALS: BP 109/46
--- NOTE | 2019-04-03 08:14 | NUR ---
THE PATIENT APPEARED TO BE SLEEPING, BUT EASILY AWOKE WHEN STAFF ENTERED HER AREA. BED IS IN THE LOW POSITION WITH SIDERAILS X2 AND CALL LIGHT WITHIN REACH. THE PATIENT WAS EDUCATED ON THE NEED TO CALL FOR ASSISTANCE WHENEVER SHE NEEDS TO GET OUT OF BED. THE PATIENT DEMONSTRATES UNDERSTANDING VIA TEACHBACK METHOD. THE PATIENT APPEARS COMFORTABLE WITH NO QUESTIONS OR COCNERNS AT THIS TIME.
[2019-04-03 08:25] LABS: CKMB 0.3 U/L (0.0-3.6); CREATINE KINASE 199 UL (21-215)
[2019-04-03 08:27] LABS: TROPONIN-I < 0.017 ng/mL (0.000-0.060)
--- NOTE | 2019-04-03 19:40 | NUR ---
PT LYING IN BED. CL IN REACH. DENIES NEEDS AT THIS TIME. BED IN LOW SIDE RAILS X2. A/O X4. LUNGS CLEAR. BOWEL ACTIVE X4. RESP EVEN AND UNLABORED. WILL CONTINUE TO MONITOR.
[2019-04-03 20:00] VITALS: BP 94/43
--- NOTE | 2019-04-03 22:00 | NUR ---
I have reviewed this patient and I concur with the Shift Assessment completed by the Licensed Practical Nurse today this shift.
--- NOTE | 2019-04-03 23:00 | NUR ---
changed linens and brief due to incontinence. pt back in bed. denies further needs. cl in reach. wctm
[2019-04-04 06:56] LABS: BASOPHILS 0.2 % (0-2); EOSINOPHILS 2.5 % (0-7); HEMATOCRIT 23.9 % (36.0-48.0); IMMATURE GRANULOCYTES 2.7 % (0-5); LYMPHOCYTES 19.5 % (15-50); MCH 29.7 pg (26.0-34.0); MCHC 33.5 g/dL (31.0-37.0); MCV 88.8 fL (80.0-100.0); MEAN PLATELET VOLUME 8.6 fL (7.4-10.4); MONOCYTES 12.6 % (2-11); NEUTROPHILS 62.5 % (40-80); RBC 2.69 10x6/uL (4.00-5.40); RDW 14.3 % (11.5-14.5); WBC 10.7 10x3/uL (4.8-10.8)
[2019-04-04 07:04] LABS: PLATELET COUNT 431 10x3/uL (130-400)
[2019-04-04 07:12] LABS: CALC OSMOLALITY 274 mosm/kg (275-300); CALCIUM 7.9 mg/dL (8.5-10.1); CARBON DIOXIDE 31.9 mmol/L (21.0-32.0); CHLORIDE - SERUM 98 mmol/L (98-107); CREATININE - SERUM 0.8 mg/dL (0.6-1.3); GLUCOSE 107 mg/dL (74-106); POTASSIUM - SERUM 3.9 mmol/L (3.5-5.1); SODIUM 136 mmol/L (136-145); UREA NITROGEN 21 mg/dL (7-18); eGFR NON AFRICAN AMERICAN 79 mL/min (90-120)
--- NOTE | 2019-04-04 07:30 | NUR ---
A/A/OX4. NO REQUESTS VOICED AT PRESENT TIME. ASSESSMENT COMPLETED AND WILL CONTINUE POC. BED IN LOW POSITION AND CALL LIGHT IN REACH.
[2019-04-04 08:17] VITALS: BP 111/60
--- NOTE | 2019-04-04 14:15 | NUR ---
PT NEEDING IV FOR BLOOD ADMINISTRATION. VASCULAR NURSE UNABLE TO START PERIPHERAL AND MIDLINE STARTED IN UPPER RIGHT ARM. PT TOLERATED WELL.
--- NOTE | 2019-04-04 15:45 | NUR ---
BLOOD HUNG TO INFUSE. VS 98.9 66 18 115/66
--- NOTE | 2019-04-04 16:00 | NUR ---
15 MIN V/S 98.3 68 18 117/66
[2019-04-04 19:20] VITALS: BP 97/52
--- NOTE | 2019-04-04 19:30 | NUR ---
PT RESTING IN BED WITH EYES OPEN. ALERT AND ORIENTED X 3. DENIES ACUTE DISCOMFORT AT THIS TIME. SECOND UNIT OF BLOOD INFUSING AT THIS TIME, WITHOUT DIFFICULTY. VSS. NO S/S OF ADVERSE REACTION NOTED. INFUSING TO A RIGHT ARM MIDLINE CATH. DRESSING TO RIGHT HIP IS CDI. NO DRAINAGE NOTED. HIP NOTED WITH 2+ EDEMA, AND IS RED AND WARM TO THE TOUCH. PT INC. OF URINE. AGUEDA CARE AND NEW BRIEF GIVEN TO PT. SR'S ARE UP X 3 IN BED. CALL LIGHT AND BEDSIDE TABLE ARE WITHIN EASY REACH.
--- NOTE | 2019-04-04 21:30 | NUR ---
PT RESTING IN BED WITH EYES OPEN. NO NEEDS VOICED. BLOOD ALMOST FINISHED. VSS. NO NEEDS VOICED.
--- NOTE | 2019-04-04 22:06 | NUR ---
BLOOD FINISHED AT THIS TIME. NO ADVERSE REACTIONS NOTED. VSS. IV FLUSHED EASILY WITH NS.
--- NOTE | 2019-04-05 00:01 | NUR ---
RESTING IN BED WITH EYES CLOSED.
--- NOTE | 2019-04-05 04:00 | NUR ---
PT INC. OF A VERY LARGE AMOUNT OF URINE. SHE GOT HERSELF OUT OF BED, AND SAT IN HER WC SO I COULD CHANGE HER BED. I INFORMED PT THAT IF SHE CAN GET UP LIKE THIS , THEN SHE NEEDED TO BE USING THE BATHROOM. PT BECAME VERY ANGRY AND DEFENSIVE, SAYING SHE HAS BEEN INCONTININENT FOR YEARS, THE DR TOLD HER SO. SHE WORKED HARD ALL HER LIFE, AND DIDNT NEED A MAN TELLING HER WHAT TO DO, "ESPECIALLY A MAN WHO HAS NEVER WORKED A REAL JOB IN HIS LIFE." I TRIED TO EXPLAIN BLADDER TRAINING TO HER, BUT SHE ONLY BECAME MORE AND MORE ANGRY UNTIL I GAVE UP TRYING. PT CONTINUED TO GO ON AND ON ABOUT HER MULTIPLE REASONS SHE COULD NOT WALK. SHE STOOD UP FROM HER WC AND URINATED DOWN HER LEG ONTO THE FLOOR, SAYING SEE, "I HAVE NO CONTROL. SHE THEN BEGAN COMPLAINING ABOUT ME NOT BEING FAST ENOUGH TO WASH HER FEET, SO SHE DIDNT GET THE URINE ON HER BED. I REMOVED HER SOCKS, AND GAVE HER A TOWEL TO DRY HER FEET. FLOOR CLEANED WITH H2O AND TOWELS.
[2019-04-05 10:01] VITALS: BP 135/47
--- NOTE | 2019-04-05 11:10 | NUR ---
PATIENT IN REHAB ROOM. WORKING WITH OCCUPATIONAL THERAPIST
--- NOTE | 2019-04-05 12:47 | NUR ---
PATIENT IS ALERT/ORIENT. CALL LIGHT WITHIN REACH. VOICES NO NEEDS AT THIS TIME. WILL CONTINUE WITH PLAN OF CARE.
--- NOTE | 2019-04-05 13:09 | NUR ---
I have reviewed this patient and I concur with the Shift Assessment completed by the Licensed Practical Nurse today this shift.
--- NOTE | 2019-04-05 13:36 | NUR ---
PATIENT HELPED WITH SHOWER BY THIS NURSE. SET UP FOR SHOWER. PATIENT ABLE TO WASH SELF. NEEDED HELP DRYING BILATERAL LEGS AND BOTTOM.
--- NOTE | 2019-04-05 17:26 | NUR ---
PATIENT SITTING UP IN BED TO EAT SUPPER. VOICES NO NEEDS
--- NOTE | 2019-04-05 19:15 | NUR ---
PATIENT RECEIVED SITTING UP IN BED. ASSESSMENT & VITAL SIGNS DONE. C/O GIRLFRIEND BUT WAS NOT IN DISTRESS AT THE TIME. PATIENT BED LOW. CALL LGITH WITHINN REACH. WILL CONTINUE TO MONITOR.
--- NOTE | 2019-04-05 19:40 | NUR ---
PATIENT UPSET WITH GIRLFRIEND. C/O PAIN IN CHEST & ARM. THIS NURSE ASKED HER IF IT WAS HEART RELATED SHE SAID "NO CAN I HAVE MY MEDICATIONS EARLY?" THIS NURSE LEFT TO GET MEDICATIONS.
[2019-04-05 19:50] VITALS: BP 113/51
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
--- NOTE | 2019-04-06 01:23 | NUR ---
RESTING IN BED. ONLY SLEEPS IN SHORT INTERVALS. PICC LINE INTACT TO RIGHT ARM. CALL LIGHT IN REACH.
--- NOTE | 2019-04-06 02:12 | NUR ---
PATIENT EYES CLOSED. RESPIRATIONS 18 & EVEN. BED LOW. CALL LIGHT WITHIN REACH. WILL CONTINUE TO MONITOR.
[2019-04-06 08:00] VITALS: BP 94/50
--- NOTE | 2019-04-06 08:55 | NUR ---
PATIENT IS ALERT/ORIENT. CALL LIGHT WITHIN REACH. PRN PAIN MEDICATION GIVEN FOR RIGHT LEG PAIN/DISC. WILL CONTINUE WITH PLAN OF CARE
--- NOTE | 2019-04-06 11:30 | NUR ---
I have reviewed this patient and I concur with the Shift Assessment completed by the Licensed Practical Nurse today this shift.
--- NOTE | 2019-04-06 13:30 | NUR ---
DR. Beka BAUTISTA CALLED IN REGARDS TO PATIENTS RIGHT LEG SWELLING, EDEMA, REDNESS AND WARMTH.
--- NOTE | 2019-04-06 19:30 | NUR ---
AWAKE AND ALERT. SITTING ON SIDE OF BED. RESPIRATIONS UNLABORED. RIGHT ARM PICC LINE INTACT. DRESSING TO RIGHT LEG INTACT. NOTED REDNESS AND SWELLING TO RIGHT THIGH AREA AROUND INCISION SITE. 4+ EDEMA NOTED TO BLE'S. HAD XRAY OF RIGHT LEG TODAY AND NO FRACTURES SEEN. MESSAGE LEFT ON DR BAUTISTA'S ROUDING SHEET. ASSISTED TO NATHROOM AND BACK TO BED. NO ACUTE DISTRESS NOTED. CALL LIGHT IN REACH.
[2019-04-06 20:00] VITALS: BP 100/64
--- NOTE | 2019-04-07 05:07 | NUR ---
RESTING IN BED. SLEPT IN SHORT INTERVALS THIS SHIFT. NOTED EASILY ANXIOUS. CONTINUES TO HAVE REDNESS AND SWELLING WITH SMALL AMOUNT OF WEEPING FROM INCISION SITE TO RIGHT UPPER LEG. MESSAGE LEFT ON ROUNDING SHEET FOR DR BAUTISTA.
[2019-04-07 06:28] LABS: BASOPHILS 0.2 % (0-2); EOSINOPHILS 1.8 % (0-7); HEMATOCRIT 29.8 % (36.0-48.0); HEMOGLOBIN 9.9 g/dL (12-16); IMMATURE GRANULOCYTES 1.1 % (0-5); LYMPHOCYTES 21.4 % (15-50); MCH 29.2 pg (26.0-34.0); MCHC 33.2 g/dL (31.0-37.0); MCV 87.9 fL (80.0-100.0); MEAN PLATELET VOLUME 8.6 fL (7.4-10.4); MONOCYTES 13.6 % (2-11); NEUTROPHILS 61.9 % (40-80); PLATELET COUNT 491 10x3/uL (130-400); RBC 3.39 10x6/uL (4.00-5.40); RDW 14.1 % (11.5-14.5); WBC 9.2 10x3/uL (4.8-10.8)
[2019-04-07 07:08] LABS: CALC OSMOLALITY 272 mosm/kg (275-300); CALCIUM 8.3 mg/dL (8.5-10.1); CARBON DIOXIDE 33.6 mmol/L (21.0-32.0); CHLORIDE - SERUM 95 mmol/L (98-107); CREATININE - SERUM 0.8 mg/dL (0.6-1.3); GLUCOSE 95 mg/dL (74-106); POTASSIUM - SERUM 3.9 mmol/L (3.5-5.1); SODIUM 135 mmol/L (136-145); UREA NITROGEN 22 mg/dL (7-18); eGFR NON AFRICAN AMERICAN 79 mL/min (90-120)
[2019-04-07 08:00] VITALS: BP 106/71
--- NOTE | 2019-04-07 08:15 | NUR ---
PT RESTING IN BED WITH EYES OPEN CALL LIGHT IN REACH WILL MONITER
--- NOTE | 2019-04-07 12:00 | NUR ---
TANISHA REIS HER TO SEE PT ORDERS WROTE
[2019-04-07 12:58] VITALS: Ht 167.6 cm; Wt 122.5 kg
--- NOTE | 2019-04-07 13:53 | NUR ---
CLINICAL UPDATES FAXED TO [facility] , AUTH. # [id number], REF. # [id number], # [id number], ID. [id number]. WITH CONFORMATION RECIEVED
--- NOTE | 2019-04-07 15:19 | NUR ---
Nutrition follow-up: Diet: Regular PO intake 100% of last 6 meals Labs reviewed Pt now with right LE cellulitis and started on ABX +BM RDN following.
--- NOTE | 2019-04-07 15:30 | NUR ---
SPOT ON RIGHT THIGHT LEAKING LARGE AMOUNTS OF SEROUS SANQUONOUS FLUID TANISHA CALLED AND SAID TO APPLY ABD PADS TO SITE WILL FOLLOW THRU AND MONITER
[2019-04-07 18:51] LABS: BASOPHILS 0.1 % (0-2); EOSINOPHILS 1.4 % (0-7); HEMATOCRIT 31.5 % (36.0-48.0); HEMOGLOBIN 10.6 g/dL (12-16); IMMATURE GRANULOCYTES 0.9 % (0-5); LYMPHOCYTES 8.6 % (15-50); MCHC 33.7 g/dL (31.0-37.0); MCV 89.2 fL (80.0-100.0); MEAN PLATELET VOLUME 8.4 fL (7.4-10.4); MONOCYTES 7.5 % (2-11); NEUTROPHILS 81.5 % (40-80); PLATELET COUNT 428 10x3/uL (130-400); RBC 3.53 10x6/uL (4.00-5.40); RDW 14.1 % (11.5-14.5); WBC 11.1 10x3/uL (4.8-10.8)
[2019-04-07 19:04] LABS: ALBUMIN 2.4 g/dL (3.4-5.0); BILIRUBIN - TOTAL 0.32 mg/dL (0.2-1.3); C-REACTIVE PROTEIN 12.3 mg/dL (0.0-0.9); CALCIUM 7.9 mg/dL (8.5-10.1); CREATININE - SERUM 0.9 mg/dL (0.6-1.3); POTASSIUM - SERUM 3.6 mmol/L (3.5-5.1); PROTEIN - SERUM 5.8 g/dL (6.4-8.2)
[2019-04-07 19:45] LABS: ERYTHROCYTE SEDIMENTATION RATE 7 mm/hr (0-30)
[2019-04-07 20:13] LABS: ANION GAP 16.9 mmol/L (8-16); CARBON DIOXIDE 27.7 mmol/L (21.0-32.0)
--- NOTE | 2019-04-07 20:16 | NUR ---
ASSISTED PT TO BATHROOM.
--- NOTE | 2019-04-07 22:05 | NUR ---
PT RIGHT THIGHT LEAKING LARGE AMOUNTS OF PINK FLUID. APPLIED ABD PADS. CONTINUE MONITOR CLOSELY.
[2019-04-07 23:02] VITALS: BP 107/53
--- NOTE | 2019-04-08 01:31 | NUR ---
PT C/O PAIN IN HIP, LEGS AREA.AT A LEVEL OF 10. PAIN MED GIVEN ORDERED.
--- NOTE | 2019-04-08 03:14 | NUR ---
I have reviewed this patient and I concur with the Shift Assessment completed by the Licensed Practical Nurse today this shift.
--- NOTE | 2019-04-08 04:31 | NUR ---
REST IN BED.CALL LIGHT IN REACH.
[2019-04-08 07:49] VITALS: BP 100/56
--- NOTE | 2019-04-08 13:47 | NUR ---
PREVENA INCISION MGMT SYSTEM APPLIED OVER SURGICAL INCISION LINE RIGHT GROIN. PT TOLERATED WELL.
--- NOTE | 2019-04-08 14:58 | NUR ---
CLINICAL UPDATES FAXED TO TREVOR KAUFMAN AT , REF. # [id number], # [id number], ID # [id number] , WITH FAXED CONFORMATION RECIEVED
--- NOTE | 2019-04-08 17:00 | NUR ---
WOUND CARE NURSE HERE TO APPLY WOUND VAC PER ORDER
--- NOTE | 2019-04-08 18:00 | NUR ---
DR NIETO HERE WROTE ORDERS TO DC TO MED SURG FOR SURGERY IN AM
[2019-04-08] MEDS ORDERED: VANCOMYCIN 1 GM/1 G1 IV (18:35)
[2019-04-08] MEDS ORDERED: VOLTAREN100 GM TOPICAL (18:37)
[2019-04-08] MEDS ORDERED: CYMBALTA60 MG PO (18:38)
[2019-04-08] MEDS ORDERED: OXYCODONE HCL5 M1 PO ×2 (18:40→18:41)
[2019-04-08] MEDS ORDERED: FUROSEMIDE10 MG/M1 PO (18:42)
[2019-04-08] MEDS ORDERED: NICODERM TRANSDERM (18:50)
--- NOTE | 2019-04-08 19:32 | NUR ---
PT RESTING IN BED WITH EYES OPEN CALL LIGHT IN REACH WILL MONITER
--- NOTE | 2019-04-08 19:40 | NUR ---
CALLED REPORT TO MIKE SOLIS. DENIES ANY QUESTIONS. WILL TRANSFER WHEN PT GETS BELONGINGS TOGETHER AND [employer]ERCIAL FRONT LOAD DRIVER IS AVAILABLE.
--- NOTE | 2019-04-08 20:30 | NUR ---
TRANSPORTED PT TO 2230. DISCHARGE ORDERS AND PAPERWORK GIVEN TO MIKE SOLIS. ALL OF BELONGINGS TAKEN WITH PT. WOUND VAC TRANSFERRED WITH PT.
[2019-04-08 20:47] VITALS: BP 175/61
--- NOTE | 2019-04-09 09:44 | NUR ---
LATE ENTRY: PATIENT DISCHARGED FROM REHAB AND ADMITTED TO ACUTE FLOOR PENDING SURGERY, DUE TO CHANGE IN MEDICAL CONDITION ON 04/08/19
--- NOTE | 2019-04-17 16:31 | NUR ---
refaxed discharge note to insurance to [employer] , ref. # [id number], ID #[id number] # [id number], WITH CONFORMATION RECIEVED
--- NOTE | 2019-05-13 10:56 | DS ---
PATIENT:NICHOLAS GARG :61 MEDICAL RECORD: [id number] DISCHARGE SUMMARY ADMISSION DATE: 03/31/19 DISCHARGE DATE: 04/08/19 This is a discharge dated on 04/08/2019 from inpatient rehabilitation. PRIMARY DIAGNOSES: Decreased functional ability and ability to provide activities of daily living, status post right total hip arthroplasty. SECONDARY DIAGNOSES: 1. Cellulitis of the right lower extremity. 2. Seizure disorder. 3. Congestive heart failure. 4. Asthma. 5. Acute blood loss anemia. 6. Avascular necrosis of the femur. 7. Bipolar disorder. 8. Hyponatremia. 9. Urinary retention. 10. Obesity. HOSPITAL COURSE: Full H&P is located elsewhere on the chart on this 53-year-old female who was admitted to inpatient rehab for physical therapy and occupational therapy to improve gait, transfer skills, bed mobility, and activities of daily living to a modified independent level. She was evaluated by PT and OT and their plans of care were followed. She required fci care for observation and assessment and medication administration as well as wound care and monitoring of surgical incision. Electrolytes were managed by protocol. She had Levaquin and vancomycin for antibiotic coverage. She had a midline catheter placed for IV access. She was transfused with 2 units of packed red blood cells for an H&H of 8 and 23.9. She was cooperative with therapies, progressing towards goals. Case management was involved for him for discharge planning. She had increased swelling in that right lower extremity and was seen by orthopedics with a need for I&D. She was transferred to the acute hospital for that procedure. DISCHARGE MEDICATIONS: As per discharge medication reconciliation. DISCHARGE DISPOSITION: The patient is discharged to the acute hospital. She will continue her current diet and level of activity. He will follow with primary care and specialists in that setting. At least 30 minutes was spent in this discharge activity. TRANSINT:[id number] Voice Confirmation ID: [id number] DOCUMENT ID: [id number] Dictated By: JOESPH CORREIA I have interviewed/examined the above patient and agree with these documented findings. DISCHARGE SUMMARY REPORT [id number] BRITANYNICHOLAS MEDINA TEJAS ZHANG MD at 1056 at 1057 CC: [id number] DICTATION DATE: 05/11/19 1516 MANAGER EPIC: 05/11/19 1909 DIS IN 04/08/19 [facility] [address] [id number]
[2019-06-05] MEDS ORDERED: HYDROCODONE-A1 UDTA2 PO (10:01)
[2019-06-05] MEDS ORDERED: XANAX0.5 MG PO (10:02)
[2019-06-05] MEDS ORDERED: K-DUR20 MEQ PO (10:09)
== END 2019-04-08 21:15 | disposition short-term general hospital (02) | DRG 560 ==
LOC: D.REHAB 15:36
PROVIDERS: Orthopaedic Surgery; ADMIT Emergency Medicine; ATTEND Emergency Medicine
PROC: 05HY33Z Insertion of Infusion Device into Upper Vein, Percutaneous Approach (ICD-10-PCS; principal; 2019-04-04)
DX: S72.001D Fracture of unspecified part of neck of right femur, subsequent encounter for closed fracture with routine healing (principal); M87.9 Osteonecrosis, unspecified; D62 Acute posthemorrhagic anemia; E87.1 Hypo-osmolality and hyponatremia; L03.115 Cellulitis of right lower limb; Q65.89 Other specified congenital deformities of hip; I95.9 Hypotension, unspecified; R33.9 Retention of urine, unspecified; I50.9 Heart failure, unspecified; E66.9 Obesity, unspecified; F31.9 Bipolar disorder, unspecified; G89.29 Other chronic pain; F60.3 Borderline personality disorder; R50.82 Postprocedural fever; W19.XXXD Unspecified fall, subsequent encounter

== ENCOUNTER 2019-04-08 19:20 | Inpatient (IN) | payer MEDICARE, MEDICAID ==
[~2019-04-08 19:20] MED LIST changes: +FUROSEMIDE10 MG/M1 PO; +NICODERM TRANSDERM; +OXYCODONE HCL5 M1 PO; +VANCOMYCIN 1 GM/1 G1 IV; +VOLTAREN100 GM TOPICAL
--- NOTE | 2019-04-09 00:18 | NUR ---
REC'D AT [facility]. OF SHIFT IN BED HOB ELEVATED 35 DEGREES.AWAKE AND ALERT DENIES PAIN AT PRESENT TIME.DRSG. DRY AND INTACT WITH WITH HEMOVAC DRAIN IN PLACE MINIMAL SWELLING OBSERVED.ICE TO LEFT SHOULDER. FINGERS AND NAILBEDS PINK AND WARM BLANCHES WELL WIGGLES FINGERS WITHOUT DIFFICULTY.GOOD RADIAL PULSE.STATES CAN FEEL TOUCHING BUT STILL NUMB. WILL CONTINUE TO MONITOR FOR ANY CHGES. IN NEURO VASCULAR STATUS AND FOLLOW CURRENT PLAN OF CARE.
[2019-04-09 01:00] VITALS: BP 103/54
[2019-04-09 02:15] VITALS: BP 102/50
[2019-04-09 06:35] VITALS: BP 98/50
--- NOTE | 2019-04-09 07:53 | NUR ---
PT RESTING IN BED. NO SIGNS OF DISTRESS. IV TO RIGHT UPPER ARM PATENT NO REDNESS OR TENDERNESS. HAS WOUND VAC TO RIGHT HIP. LOWER EXT SWOLLEN. COMPLAINS OF PAIN. MEDICATIONS GIVEN. AWAITING TO GO TO SURGERY. DENIES ANY FUTHER NEED AT THIS TIME. CALL LIGHT IN REACH. BED LOW POSITION. FAMILY AT BEDSIDE.
[2019-04-09 09:11] VITALS: BP 113/55
--- NOTE | 2019-04-09 10:39 | NUR ---
PLASMA BLADE SET TO 6/8 BOVIE PAD LEFT THIGH [id number] EXP 10/03/20
--- NOTE | 2019-04-09 12:48 | OP ---
PATIENT NAME: ALEXIA GARG MEDICAL RECORD: [id number] :61 LOCATION:D.[id number] ADMISSION DATE:04/08/19 SURGEON: BASILIO NIETO DO DATE OF OPERATION: 04/09/2019 PROCEDURE PERFORMED: Revision right total hip arthroplasty. PREOPERATIVE DIAGNOSIS: Right hip draining wound and seroma. POSTOPERATIVE DIAGNOSIS: Right hip draining wound and seroma. INDICATIONS: Ms. Garg is a 54-year-old female who underwent a right total hip arthroplasty for avascular necrosis 2 weeks ago. Approximately 2 days ago, the thigh was extremely swollen and started to swell and drained serosanguineous fluid out of the hip. Her swelling was from the foot up to the thigh. Labs were drawn. A CRP and white count were elevated and only that. I told her that we would go in and irrigate and debride the hip and change out the head at least and take cultures. She was okay with that. I told her that she would be at increased risk for infection if it were not infected, bleeding, damage to nerves and vessels, and need for further surgery, blood clots, and even . She was okay with all those risks and signed the consent. SURGEON: Basilio Nieto DO DESCRIPTION OF PROCEDURE: The patient was taken to the operative suite, sedated and intubated. She was then moved over to the Ripley table. The right hip was prepped and draped in sterile fashion. A timeout was performed, everyone was in agreement as to the correct side, site, patient and procedure. The incision then began over the old incision, anterior hip and serosanguineous fluid gushed out of the wound. This was then cultured with 9 different cultures and sent for stat Gram stain. A careful dissection was made down to the hip joint itself. The tensor fascia jesse fascia was completely obliterated at that point and could not be repaired on the way back out. The hip was dislocated and the head was attempted to be knocked off, but the stem came out, became loose. Once that happened, I decided to broach and see if I could get to a bigger stem, but due to her body habitus, could not reach around her hip due to the swelling and edema. She did have 4+ pitting edema on the thigh. I then decided to cement down the stem. A cement restrictor was placed down the femur. I would doubt I could get this in all the way down there due to, again, the body habitus and cement was put down through the femur and tried to put down all the way. The stem was then covered in cement as well and pushed into place and held while the cement hardened. Excess cement was removed from around the femur. X-ray was taken and seen to have a good cement mantle around the stem and the cement was hardened and the stem was very stable. The head was then put on, a +6 neck and the hip was reduced. Prior to inserting the stem, the hip was irrigated with 3 liters of normal saline and Bactisure and then another liter and half of normal saline. After that was completed, the stem was cemented as described. I then attempted to close the tensor fascia jesse fascia and it did not hold a stitch. The drain was then put in and Surgicel powder as well as antibiotic powder, vancomycin and tobramycin powder was put in the hip. The drain was then put in and brought out in the superior lateral. The soft tissue was then closed deep with 0 Vicryl in a mattress fashion and then 2-0 Vicryl in inverted interrupted fashion on the skin and then #2 nylons were used in a horizontal mattress fashion on the incision. The drain was then sutured in with a #2 nylon and a Prevena incisional VAC was placed on the wound after it was cleaned and dried. OPERATIVE REPORT [id number] ALEXIA GARG She was then awakened and taken to recovery in stable condition. Blood loss approximately 500 mL. COMPLICATIONS: None. TRANSINT:[id number] Voice Confirmation ID: [id number] DOCUMENT ID: [id number] BASILIO NIETO DO at 1248 CC: [id number] DICTATION DATE: 04/09/19 1216 CONSULTANT LUXURY AND AUTO. VICE PRESIDENT JAGUAR BRAND (EX ): 04/09/19 1241 ADM IN [facility] [address] [place] [address]
[2019-04-09 16:05] VITALS: BP 113/70
--- NOTE | 2019-04-09 18:59 | NUR ---
I have reviewed this patient and I concur with the Shift Assessment completed by the Licensed Practical Nurse today this shift.
[2019-04-09 22:05] VITALS: BP 111/83
[2019-04-10 01:22] VITALS: BP 91/43
--- NOTE | 2019-04-10 05:11 | NUR ---
RESTING IN BED NO APPARENT DISTRESS CALL LIGHT IN REACH
[2019-04-10 05:22] LABS: BASOPHILS 0.2 % (0-2); EOSINOPHILS 1.2 % (0-7); HEMATOCRIT 22.4 % (36.0-48.0); HEMOGLOBIN 7.6 g/dL (12-16); IMMATURE GRANULOCYTES 0.4 % (0-5); LYMPHOCYTES 21.8 % (15-50); MCH 29.8 pg (26.0-34.0); MCHC 33.9 g/dL (31.0-37.0); MCV 87.8 fL (80.0-100.0); MEAN PLATELET VOLUME 8.6 fL (7.4-10.4); MONOCYTES 12.9 % (2-11); NEUTROPHILS 63.5 % (40-80); PLATELET COUNT 511 10x3/uL (130-400); RBC 2.55 10x6/uL (4.00-5.40); RDW 13.8 % (11.5-14.5); WBC 11.4 10x3/uL (4.8-10.8)
--- NOTE | 2019-04-10 05:39 | NUR ---
REC''D AT [facility] OF SHIFT YELLING NURSE STATES BEEN TRYING TO GET SOMEONE IN HERE FOR OVER AN HOUR.EXPLAINED YOU WERE ASLEEP WHEN WE MADE ROUNDS STATES I'M WETWOUNDVAC AND HEMOVAC TO RIGHT HIP.WOUND VAC SHOWING BATTERY LOW. CHGED OUTLET TWICE.COLLECTION CONTAINER SNAPPED BACK ON SECURELY.NOW WORKING PROPERLY LINENS CHGED.RIGHT LEG REMAINS RED WITH LGE AMT SWELLING.LOWER EXT AND FEET BILAT.WILL CONTINUE TO MONITOR FOR ANY CHGES IN NEURVASCULAR STATUS AND FOLLOW CURRENT PLAN OF CARE
[2019-04-10 05:49] VITALS: BP 111/70
[2019-04-10 07:00] LABS: ANION GAP 11.3 mmol/L (8-16); CALCIUM 7.5 mg/dL (8.5-10.1); CARBON DIOXIDE 31.5 mmol/L (21.0-32.0); CREATININE - SERUM 1.1 mg/dL (0.6-1.3); POTASSIUM - SERUM 3.8 mmol/L (3.5-5.1)
[2019-04-10 08:59] VITALS: BP 122/76
--- NOTE | 2019-04-10 11:45 | NUR ---
WENT INTO PT ROOM TO HELP THE LAYOUT ARTIST CLEAN UP PT. WHEN ARRIVED IN ROOM WENT TO START AND PT STATED FOR US TO LEAVE HER ALONE THAT SHE WANTS TO EAT HER LUNCH AND TO LEAVE HER ALONE AND NOT TO BE CLEANED UP AT THIS TIME. THIS IS NOT THE ONLY TIME PT HAS REFUSED TO BE CLEANED UP. LAST TIME SHE REFUSED TO LET ME HELP CLEAN UP DEMANDED TO HAVE PAIN MEDICATION RIGHT THIS MINUTE INSTEAD OF HELPING CLEAN PT UP.
--- NOTE | 2019-04-10 12:08 | NUR ---
PT RESTING IN BED. NO SIGNS OF DISTRESS. IV TO RIGHT UPPER ARM PATENT NO REDNESS OR TENDERNESS. HAS WOUND VAC AND HEMOVAC TO RIGHT HIP. DRESSING INTACT. COMPLAINS OF PAIN. MEDICATIONS GIVEN. DENIES ANY FURTHER NEED AT THIS TIME. CALL LIGHT IN REACH. BED LOW POSITION. NO FAMILY AT BEDSIDE AT THIS TIME.
[2019-04-10 12:09] VITALS: BP 106/62
--- NOTE | 2019-04-10 18:55 | NUR ---
I have reviewed this patient and I concur with the Shift Assessment completed by the Licensed Practical Nurse today this shift.
[2019-04-10 19:00] VITALS: BP 113/54
--- NOTE | 2019-04-10 19:10 | NUR ---
PT ALSO REACHING AROUNG TOUCHING THE WOUND VAC SITE AND DRAIN SITE. ALSO WITNESSED BY TANISHA ERIS.
[2019-04-10 21:10] VITALS: BP 116/56
[2019-04-11 00:37] VITALS: BP 111/46
[2019-04-11 03:36] LABS: APPEARANCE CLEAR (CLEAR); BACTERIA NONE SEEN /hpf (NONE SEEN); BILIRUBIN NEGATIVE (NEGATIVE); COLOR YELLOW (YELLOW); EPITHELIAL CELLS NSEEN /hpf (0-5); GLUCOSE NEGATIVE (NEGATIVE); KETONE NEGATIVE (NEGATIVE); NITRITE NEGATIVE (NEGATIVE); PROTEIN NEGATIVE (NEGATIVE); RED CELLS - URINE 0-5 /hpf (0-5); SPECIFIC GRAVITY 1.005 (1.005-1.020); URIC ACID CRYSTALS 0-5 /hpf (NONE SEEN); UROBILINOGEN NORMAL (NORMAL)
[2019-04-11 04:37] LABS: BASOPHILS 0.2 % (0-2); EOSINOPHILS 2.5 % (0-7); HEMATOCRIT 22.8 % (36.0-48.0); HEMOGLOBIN 7.9 g/dL (12-16); IMMATURE GRANULOCYTES 0.6 % (0-5); LYMPHOCYTES 21.9 % (15-50); MCH 29.6 pg (26.0-34.0); MCHC 34.6 g/dL (31.0-37.0); MEAN PLATELET VOLUME 8.5 fL (7.4-10.4); MONOCYTES 13.3 % (2-11); NEUTROPHILS 61.5 % (40-80); PLATELET COUNT 410 10x3/uL (130-400); RBC 2.67 10x6/uL (4.00-5.40); RDW 14.1 % (11.5-14.5); WBC 10.2 10x3/uL (4.8-10.8)
[2019-04-11 04:38] LABS: MCV 85.4 fL (80.0-100.0)
[2019-04-11 04:49] LABS: ANION GAP 9.7 mmol/L (8-16); CALCIUM 7.6 mg/dL (8.5-10.1); CARBON DIOXIDE 33.3 mmol/L (21.0-32.0); CREATININE - SERUM 1.1 mg/dL (0.6-1.3)
[2019-04-11 05:49] VITALS: BP 99/39
[2019-04-11 08:40] VITALS: BP 100/55
--- NOTE | 2019-04-11 09:00 | NUR ---
EDEMA 4+ NOTED TO BLE WITH PEDAL PULSES NOTED. WOUND VAC INTACT TO RT. GROIN AREA. DIAZ ATH PATENT WITH CLEAR SHELDON URINE. DILAUDID GIVEN PRN PAIN. ELCECTROLYTE PROTOCOL FOLLLOWEDE DUE TO LOW POTASSIUM. ENCOURAGED TO USE CALL LIGHT FOR ASSIST. PT CAN AMBULATED WITH SBA TO BATHROOM.
[2019-04-11 13:04] VITALS: BP 104/56
[2019-04-11 13:40] LABS: ALBUMIN 2.1 g/dL (3.4-5.0)
[2019-04-11 13:51] VITALS: Ht 167.6 cm
--- NOTE | 2019-04-11 15:24 | MORECARE ---
CASE MANAGEMENT DISCHARGE SUMMARY PATIENT: ALEXIA GARG STEFFANIE UNIT: [id number] ADM DATE: 04/08/19 AGE: 54 : 61 SEX: F ROOM/BED: [facility] AUTHOR: JASMYN MALIN PHYSICIAN: REFERRING PHYSICIAN: BASIILO NIETO DO DATE OF SERVICE: 04/11/19 Discharge Plan Patient Name: ALEXIA GARG Facility: [facility]:[place] : 1965 Planned Disposition: Longterm Facility Anticipated Discharge Date: Discharge Date: Expected LOS: Initial Reviewer: [email or web address] Initial Review Date: 04/11/2019 Generated: 04/11/19 4:24 pm External Providers External Provider: Ernesto Murillo [facility] Next Contact Date: Service Request Date: Service Type: Resolution: Reviewer: Comments: External Provider: MERLIN Prado Next Contact Date: Service Request Date: Service Type: Resolution: Reviewer: Comments: External Provider: [facility] Next Contact Date: Service Request Date: Service Type: Resolution: Reviewer: Comments: Coverage Notice Reviewer: [id number] Joyce Hirsch Notice Issued Date-Time: 04/11/2019 11:37 Notice Type: Patient Choice Letter Notice Delivered To: Patient Relationship to Patient: Self Refractory Grinder Operator Name: Delivery Method: HAND - Hand Delivered Karli Days: Prior Verbal Notification: Recipient Understood Notice: Yes Recipient Signature: Yes Med Rec Note Co-signed by Attending: Coverage Notice Comment: [facility] for [facility] for SNF Patient Name: ALEXIA GARG Page [id number] at 1524 All edits/amendments must be made on the electronic document DICTATION DATE: 04/11/19 152 AQUEDUCT AND RESERVOIR KEEPER: HEATHER 04/11/19 1524 RPT#: [id number] DC DATE: STATUS: ADM IN [facility] [address] [place] [address] END OF REPORT
--- NOTE | 2019-04-11 15:32 | MORECARE ---
CASE MANAGEMENT DISCHARGE SUMMARY PATIENT: ALEXIA GARG STEFFANIE UNIT: [id number] ADM DATE: 04/08/19 AGE: 54 : 61 SEX: F ROOM/BED: D.2231 AUTHOR: JASMYN MALIN PHYSICIAN: REFERRING PHYSICIAN: BASILIO NIETO DO DATE OF SERVICE: 04/11/19 Discharge Plan Patient Name: ALEXIA GARG Facility: [facility]:[place] : 1965 Planned Disposition: Detention Facility Anticipated Discharge Date: Discharge Date: Expected LOS: Initial Reviewer: [email or web address] Initial Review Date: 04/11/2019 Generated: 04/11/19 4:32 pm DCP- Discharge Planning Updated by [email or web address]: Stacy Hirsch on 04/11/19 2:[address] Patient Name: ALEXIA GARG Admission Status: Elective Accout number: [id number] Admission Date: 04-08-2019 : 1965 Admission Diagnosis: Attending: BASILIO NIETO Current LOS: 3 Anticipated DC Date: Planned Disposition: Detention Facility Primary Insurance: [facility] MEDICARE SOLUTIONS Discharge Planning Comments: Met with patient concerning discharge planning/needs, she is alone in the room. She was "camping" prior to coming to the hospital. She states "I'm in between housing." States she has been kicked out of her motel and was going to rent a place in [place] prior to coming here. States her son lives in [place] and he will assist her with getting housing. States she would like to go to [facility] prior to going home for PT. Ashlee Perez has been here and spoken to her. I filled out a JOURDAN and faxed to [facility] in [place]. Dr. Nieto had stated he would like a referral to LTACH. I spoke with the patient about the LTACH's available and she states she would like me to refer her to the [facility] in [place]. I spoke with Crystal Barrow and clinical faxed. Crystal states they will probably not hear from insurance until at least Sunday. CM will continue to follow and assist with discharge planning/needs. Joceline scott - [phone] Motion Picture Equipment Machinist: Stacy Hirsch DCPIA - Discharge Planning Initial Assessment Updated by [id number]: Stacy Hirsch on 04/11/19 3:24 pm * Is the patient Alert and Oriented? Yes * PCP Dr. Priscilla Alfaro at [facility] in [place] * Pharmacy [facility] in [place] * Preadmission Environment Homeless * ADLs Independent * Equipment Walker * List name and contact numbers for known caregivers / representatives who currently or will assist patient after discharge: Joceline scott - [phone] * Verbal permission to speak to the caregivers and representatives has been obtained from the patient. Yes * Community resources currently utilized None * Additional services required to return to the preadmission environment? Yes * Can the patient safely return to the preadmission environment? No * Has this patient been hospitalized within the prior 30 days at any hospital? Yes Coverage Notice Reviewer: [id number] - Stacy Hirsch Notice Issued Date-Time: 04/11/2019 11:37 Notice Type: Patient Choice Letter Notice Delivered To: Patient Relationship to Patient: Self Rn Cardiac Rehab Name: Delivery Method: HAND - Hand Delivered Karli Days: Prior Verbal Notification: Recipient Understood Notice: Yes Recipient Signature: Yes Med Rec Note Co-signed by Attending: Coverage Notice Comment: ASH for [facility] for SNF Last DP export: 04/11/19 2:24 pm Patient Name: ALEXIA GARG Page [phone] at 1532 All edits/amendments must be made on the electronic document DICTATION DATE: 04/11/19 1531 SUSTAINABLE DESIGN CONSULTANT: HEATHER 04/11/19 1531 RPT#: [id number] DC DATE: STATUS: ADM IN [facility] [address] [place] [address] END OF REPORT
[2019-04-11 17:20] VITALS: BP 102/59
[2019-04-12 01:19] VITALS: BP 130/75
[2019-04-12 04:21] VITALS: BP 105/58
[2019-04-12 05:33] LABS: BASOPHILS 0.2 % (0-2); EOSINOPHILS 2.3 % (0-7); HEMATOCRIT 23.2 % (36.0-48.0); IMMATURE GRANULOCYTES 0.7 % (0-5); LYMPHOCYTES 22.2 % (15-50); MCH 29.9 pg (26.0-34.0); MCHC 34.5 g/dL (31.0-37.0); MCV 86.6 fL (80.0-100.0); MEAN PLATELET VOLUME 8.7 fL (7.4-10.4); MONOCYTES 13.2 % (2-11); NEUTROPHILS 61.4 % (40-80); PLATELET COUNT 448 10x3/uL (130-400); RBC 2.68 10x6/uL (4.00-5.40); RDW 14.3 % (11.5-14.5); WBC 9.4 10x3/uL (4.8-10.8)
[2019-04-12 05:48] LABS: ANION GAP 8.8 mmol/L (8-16); CALCIUM 7.7 mg/dL (8.5-10.1); CARBON DIOXIDE 34.4 mmol/L (21.0-32.0); MAGNESIUM - SERUM 1.9 mg/dL (1.8-2.4); POTASSIUM - SERUM 3.2 mmol/L (3.5-5.1)
--- NOTE | 2019-04-12 09:00 | NUR ---
ALERT AND ORIENTED WITH ACEWRAP INTACT TO RLE EDEMA 4+ NOTED TO BLE. LUNGS CTA WITH HRRR. ABDOMEN OBESE WITH BS NOTED. DRESSING INTACT TO RT HIP WITH WOUND VAC. DILAUDID GIVEN PRN FOR PAIN AND EFFECTIVE. POTASSIUM TREATED PER PROTOCOL. LT. MIDLINE INTACT WITH IVF INFUSING AT PRESCRIBED RATE. PEDAL PULSES WEAK BUT PRESENT.
[2019-04-12 10:07] VITALS: BP 102/45
[2019-04-12 13:28] VITALS: BP 107/62
[2019-04-12 18:01] VITALS: BP 95/52
[2019-04-12 19:45] VITALS: BP 112/55
--- NOTE | 2019-04-12 20:00 | NUR ---
ALERT RESTING IN BED, C/O PAIN TO RIGHT HIP, INFORMED NOT TIME FOR MORE PAIN MEDS YET, JERE WRAPS IN PLACE TO BILATERAL LOWER EXTREMITIES, 4+ EDEMA NOTED. WOUND VAC INTACT TO RIGHT HIP AREA SMALL AMOUNT OF DRAINAGE NOTED IN TUBING, DIAZ CATH DRAINING SHELDON URINE, SEE SHIFT ASSESSMENT, CALL LIGHT IN REACH
[2019-04-13 01:33] VITALS: BP 101/40
[2019-04-13 05:26] VITALS: BP 110/56
[2019-04-13 07:42] LABS: BASOPHILS 0.3 % (0-2); EOSINOPHILS 2.3 % (0-7); HEMATOCRIT 24.8 % (36.0-48.0); HEMOGLOBIN 8.3 g/dL (12-16); IMMATURE GRANULOCYTES 0.6 % (0-5); LYMPHOCYTES 20.5 % (15-50); MCH 29.3 pg (26.0-34.0); MCHC 33.5 g/dL (31.0-37.0); MCV 87.6 fL (80.0-100.0); MEAN PLATELET VOLUME 9.2 fL (7.4-10.4); MONOCYTES 9.1 % (2-11); NEUTROPHILS 67.2 % (40-80); PLATELET COUNT 412 10x3/uL (130-400); RBC 2.83 10x6/uL (4.00-5.40); RDW 14.4 % (11.5-14.5); WBC 11.3 10x3/uL (4.8-10.8)
[2019-04-13 07:59] LABS: CARBON DIOXIDE 32.7 mmol/L (21.0-32.0); CREATININE - SERUM 0.9 mg/dL (0.6-1.3); POTASSIUM - SERUM 3.7 mmol/L (3.5-5.1)
--- NOTE | 2019-04-13 09:00 | NUR ---
ALERT AND ORIENTED X3 WITH REPETITIOUS RANDOM CONVERSATIONS AT TIMES. DRESSIGN INTACT WITH WOUND VAC TO RT. HIP. UP WITH ASSIST TO BATHROOM. MIDLINE INTACT TO RUE. CONTINUED 4+ EDEMA TO BLE. LINGS CTA WITH HRRR. ENOCURAGED TO USE CALL LIGHT FOR ASSIST.
[2019-04-13 09:29] VITALS: BP 118/54
[2019-04-13 13:27] VITALS: BP 113/54
[2019-04-13 18:22] VITALS: BP 111/56
[2019-04-13 20:14] VITALS: BP 109/31
[2019-04-14 02:12] VITALS: BP 106/45
[2019-04-14 04:55] LABS: BASOPHILS 0.3 % (0-2); EOSINOPHILS 2.2 % (0-7); HEMATOCRIT 22.8 % (36.0-48.0); HEMOGLOBIN 7.7 g/dL (12-16); IMMATURE GRANULOCYTES 0.4 % (0-5); LYMPHOCYTES 24.5 % (15-50); MCHC 33.8 g/dL (31.0-37.0); MCV 88.7 fL (80.0-100.0); MEAN PLATELET VOLUME 8.3 fL (7.4-10.4); MONOCYTES 10.8 % (2-11); NEUTROPHILS 61.8 % (40-80); PLATELET COUNT 428 10x3/uL (130-400); RBC 2.57 10x6/uL (4.00-5.40); RDW 14.7 % (11.5-14.5)
[2019-04-14 05:11] LABS: ANION GAP 8.3 mmol/L (8-16); CALCIUM 7.5 mg/dL (8.5-10.1); CARBON DIOXIDE 34.8 mmol/L (21.0-32.0); CREATININE - SERUM 0.9 mg/dL (0.6-1.3)
[2019-04-14 05:20] LABS: POTASSIUM - SERUM 3.1 mmol/L (3.5-5.1)
[2019-04-14 05:26] VITALS: BP 110/75
--- NOTE | 2019-04-14 07:15 | NUR ---
ALERT AND ORIENTED, RESTING BED. GENERALIZED EDEMA PRESENT. H&H DOWN FROM YESTERDAY. UP WITH WALKER, STANDBY ASSIST. WOUND VAC TO RIGHT HIP, MINIMAL DRAINAGE. DIAZ CATHETER PRESENT. MIDLINE TO RIGHT UPPER ARM, SL. SITE PATENT WITHOUT REDNESS OR SWELLING. PT DENIES ANY NEEDS AT THIS TIME. CALL LIGHT IN REACH. WILL CONTINUE TO MONITOR.
[2019-04-14 09:02] VITALS: BP 94/52
--- NOTE | 2019-04-14 11:58 | NUR ---
I have reviewed this patient and I concur with the Shift Assessment completed by the Licensed Practical Nurse today this shift.
[2019-04-14 12:54] VITALS: BP 117/58
--- NOTE | 2019-04-14 13:38 | MORECARE ---
CASE MANAGEMENT DISCHARGE SUMMARY PATIENT: ALEXIA GARG STEFFANIE UNIT: [id number] ADM DATE: 04/08/19 AGE: 54 : 61 SEX: F ROOM/BED: D.2231 AUTHOR: JASMYN AMLIN PHYSICIAN: REFERRING PHYSICIAN: BASILIO NIETO DO DATE OF SERVICE: 04/14/19 Discharge Plan Patient Name: ALEXIA GARG Facility: [facility]:[place] : 1965 Planned Disposition: Senior Living Facility Anticipated Discharge Date: Discharge Date: Expected LOS: Initial Reviewer: [email or web address] Initial Review Date: 04/11/2019 Generated: 04/14/19 2:38 pm Comments DCP- Discharge Planning Updated by [id number]: Stacy Hirsch on 04/14/19 12:[address] Updated clinical faxed to Kyle Jang and Ashlee Perez with [place]. CM will continue to follow and assist with discharge planning/needs. DCP- Discharge Planning Updated by [id number]: Stacy Hirsch on 04/11/19 2:[address] Patient Name: ALEXIA GARG Admission Status: Elective Accout number: [id number] Admission Date: 04-08-2019 : 1965 Admission Diagnosis: Attending: BASILIO NIETO Current LOS: 3 Anticipated DC Date: Planned Disposition: Senior Living Facility Primary Insurance: [facility] MEDICARE SOLUTIONS Discharge Planning Comments: Met with patient concerning discharge planning/needs, she is alone in the room. She was "camping" prior to coming to the hospital. She states "I'm in between housing." States she has been kicked out of her motel and was going to rent a place in [place] prior to coming here. States her son lives in [place] and he will assist her with getting housing. States she would like to go to [facility] prior to going home for PT. Ashlee Perez has been here and spoken to her. I filled out a JOURDAN and faxed to [facility] in [place]. Dr. Nieto had stated he would like a referral to [facility]. I spoke with the patient about the LTACH's available and she states she would like me to refer her to the [facility] in [place]. I spoke with Crystal Barrow and clinical faxed. Crystal states they will probably not hear from insurance until at least Sunday. CM will continue to follow and assist with discharge planning/needs. Joceline scott - [phone] Inside Finisher: Stacy Torrey DCPIA - Discharge Planning Initial Assessment Updated by [id number]: Stacy Hirsch on 04/11/19 3:24 pm * Is the patient Alert and Oriented? Yes * PCP Dr. Priscilla Alfaro at [facility] in [place] * Pharmacy [facility] in [place] * Preadmission Environment Homeless * ADLs Independent * Equipment Walker * List name and contact numbers for known caregivers / representatives who currently or will assist patient after discharge: Joceline Cook [phone] * Verbal permission to speak to the caregivers and representatives has been obtained from the patient. Yes * Community resources currently utilized None * Additional services required to return to the preadmission environment? Yes * Can the patient safely return to the preadmission environment? No * Has this patient been hospitalized within the prior 30 days at any hospital? Yes Coverage Notice Reviewer: [id number] - Stacy Hirsch Notice Issued Date-Time: 04/11/2019 11:37 Notice Type: Patient Choice Letter Notice Delivered To: Patient Relationship to Patient: Self High School History Teacher Name: Delivery Method: HAND - Hand Delivered Karli Days: Prior Verbal Notification: Recipient Understood Notice: Yes Recipient Signature: Yes Med Rec Note Co-signed by Attending: Coverage Notice Comment: ASH for [facility] for SNF Last DP export: 04/11/19 2:32 pm Patient Name: ALEXIA GARG Page [phone] at 1338 All edits/amendments must be made on the electronic document DICTATION DATE: 04/14/191337 MICROWAVE TECHNICIAN: HEATHER 04/14/191337 RPT#: [id number] DC DATE: STATUS: ADM IN [facility] [address] [place] [address] END OF REPORT
[2019-04-14 17:42] VITALS: BP 110/62
--- NOTE | 2019-04-14 18:39 | NUR ---
PT ALERT AND ORIENTED, RESTING IN BED. NO C/O PAIN. NO S/S OF ACUTE DISTRESS NOTED. CALL LIGHT IN REACH. PT DENIES ANY NEEDS. WILL CONTINUE TO MONITOR.
--- NOTE | 2019-04-14 20:00 | NUR ---
PT SITTING UP IN BED WITHOUT DISTRESS, ALERT AND ORIENTED. STATES PAIN IN RIGHT HIP 01/17. DRESSING CDI, WOUND VAC IN PLACE. +2 EDEMA TO BILAT LOWER LEGS, GENERALIZED EDEMA TO BILAT UPPER EXT. MIDLINE RIGHT UPPER ARM INFUSING NS @ 50. DENIES NEEDS AT THIS TIME. CL IN REACH, WILL CTM
[2019-04-14 21:10] VITALS: BP 115/52
[2019-04-15] VITALS (7 sets, daily range): BP systolic 96–128; BP diastolic 41–68
--- NOTE | 2019-04-15 01:00 | NUR ---
PT REQUESTING PAIN MEDICATION. BP LOW. RETOOK BP MANUAL, CONT TO BE 90/50. EXPLAINED TO PT SHE COULD NOT HAVE PAIN MEDICATION AT THIS TIME THAT COULD LOWER HER BP ANYMORE. VERBALIZED UNDERSTANDING. WILL CTM
--- NOTE | 2019-04-15 03:00 | NUR ---
PT ASKING FOR PAIN MEDICATION, BP 97/48. TOLD PT SHE COULD NOT HAVE OXY WITH BP THAT LOW. TOLD PT WE WOULD RECHECK BP IN A LITTE WHILE. PT IRRITATED BP WOULD NOT COME UP. CALMED PT, EDUCATED ON WHY WE CANNOT GIVE PAIN MEDICATION WITH BP THAT LOW
--- NOTE | 2019-04-15 05:08 | NUR ---
SPOKE WITH DR NIETO REGARDING LOW BP AND PATIENT GETTING AGITATED ABOUT NOT HAVING PAIN MEDICATION. ORDERS FOR ONE UNIT PRBC TO BE GIVEN NOW. TOLD TO INFORM PT SHE CANNOT HAVE OXY UNTIL BP COMES UP. INFORMED PT OF DR INETO ORDERS AND EDUCATED ON IMPORTANCE OF GETTING PT BP UP BEFORE GIVING PAIN MEDICATION. PT UPSET AND CRYING. STAYED IN PT ROOM X15 MINUTES CALMING PT WITH SPOUSE
[2019-04-15 06:12] LABS: ALBUMIN 2.1 g/dL (3.4-5.0); ANION GAP 9.9 mmol/L (8-16); BILIRUBIN - TOTAL 0.26 mg/dL (0.2-1.3); CALCIUM 7.6 mg/dL (8.5-10.1); CARBON DIOXIDE 33.3 mmol/L (21.0-32.0); CREATININE - SERUM 1.1 mg/dL (0.6-1.3); MAGNESIUM - SERUM 1.8 mg/dL (1.8-2.4); POTASSIUM - SERUM 3.2 mmol/L (3.5-5.1); PROTEIN - SERUM 5.4 g/dL (6.4-8.2)
[2019-04-15 06:45] LABS: BASOPHILS 0.2 % (0-2); HEMATOCRIT 24.7 % (36.0-48.0); HEMOGLOBIN 8.2 g/dL (12-16); IMMATURE GRANULOCYTES 0.4 % (0-5); LYMPHOCYTES 24.4 % (15-50); MCH 29.9 pg (26.0-34.0); MCHC 33.2 g/dL (31.0-37.0); MCV 90.1 fL (80.0-100.0); MEAN PLATELET VOLUME 8.9 fL (7.4-10.4); PLATELET COUNT 504 10x3/uL (130-400); RBC 2.74 10x6/uL (4.00-5.40); RDW 15.2 % (11.5-14.5); WBC 9.1 10x3/uL (4.8-10.8)
--- NOTE | 2019-04-15 08:00 | NUR ---
PATIENT IN BED COMPLAINING ABOUT NEEDING HER ANXIETY MEDS AND THAT SHE DOESNT THINK THAT SHE IS BEING TAKEN CARE OF AND THAT SHE HAS POOPED ALL OVER HERSELF AND WANTS TO TRANSFER OUT OF HOSPITAL BC SHE IS NOT RECIEVING THE CARE SHE NEEDS. EXPLAINED TO PATIENT THAT I COULD GET HER BED CHANGED AND HER MED FOR ANXIETY. STATED SHE ALSO HAS PROBLEMS WITH MACHINE EDGE BANDER AIDS AND THAT THEY ARE LOOKING AT HER BOOBS AND THAT SHE THINKS THEY ARE JEALOUS AND THAT SHE DOESNT WANT MEN BECAUSE SHE IS A LESBIAN. AGAIN EXPLAINED TO PATIENT THAT I COULD HELP HER GET CHANGED AND GET HER ANXIETY MEDS AND THAT IF SHE HAD ANY OTHER COMPLAINTS ABOUT THE OTHER STAFF I WOULD SEND MY NURSE SALES ASSISTANT ENTERTAINMENT AND MEDIA IN TO TALK TO HER. PATIENT STATED SHE DIDNT WANT ANYONE TO TALK TO HER THAT SHE JUST WANTED TO TALK TO THE MILIEU THERAPIST BECAUSE SHE HASNT HAD HER ANXIETY MEDS AND NEEDS TO BE CHANGED BECAUSE SHE HAS " SHIT " ON HERSELF AND CANT GET ANYONE TO HELP HER. EXPLAINED TO PATIENT THAT I WOULD BE GLAD TO HELP HER AT THIS TIME IF SHE WOULD LIKE TO BE CLEANED UP AND RECIEVE HER MEDICINE I WOULD LET HER NURSE KNOW AND ASK HER AND THE KETTLE LOADER TO GET HER CLEANED UP. PATIENT FINALLY AGREED BUT STATED SHE STILL WANTED TO TALK TO THE MILIEU THERAPIST. PATIENT GF IN ROOM AT THIS TIME. TOLD PATIENT TO BE QUIETLY. NOTIFIED NURSE AND KETTLE LOADER OF PATIENTS NEEDS. BOTH VERBALIZED UNDERSTANDING AND STATED THEY WOULD HELP THE PATIENT AT THIS TIME.
--- NOTE | 2019-04-15 09:53 | EC ---
PATIENT:ALEXIA GARG DATE OF SERVICE: 04/08/19 SEX: F MEDICAL RECORD: [id number] DATE OF : 61 LOCATION:D.MS [facility] AGE OF PATIENT: 54 ADMISSION DATE: 04/08/19 REFERRING PHYSICIAN: INTERPRETING PHYSICIAN: MELLY SLAUGHTER MD ECHOCARDIOGRAM REPORT ECHO CHARGES 4 ECHO COMPLETE Date: 04/10/19 CLINICAL DIAGNOSIS: CHF ECHOCARDIOGRAPHIC MEASUREMENTS (adult normal given) AC root (d.<3.7cm) 3.4 cm LV Septum d (<1.2 cm> 1.0 cm Valve Excursion 2.0 cm LV Septum (systole) 1.4 cm Left Atria (s.<4.0cm> 3.5 cm LVPW d(<1.2cm) 1.5 cm RV (d.<2.3cm) 4.0 cm LVPW (sytole) 1.7 cm LV diastole(<5.6CM) 6.0 cm MV E-F(>70mm/sec) cm LV systole 4.5 cm LVOT Diameter 2.4 cm MV exc.(>10mm) cm Est.ejection fraction (50-75%) % DOPPLER: LVIT cm/sec A 53 cm/sec E 87 cm/sec LA cm/sec RVSP 33.5 mmHg LVOT 157 cm/sec AOP1/2T m/s Asc. Ao 187 cm/sec RVOT 76 cm/sec RA cm/sec PA 116 cm/sec AV Gradient Peak 14.0 mmHg AV Mean 9.2 mmHg AV Area 3.4 cm MV Gradient Peak 4.1 mmHg MV Mean 2.2 mmHg MV Area cm COMMENTS: Crotch Breaker: Cooper ADAMSHOLLI MONROE Staff Physical Therapist: 1 Dr. Slaughter TAPE# PACS Pericardial Effusion N DATE OF SERVICE: 04/10/2019 PROCEDURE: Echocardiogram. FINDINGS: 1. Left ventricular chamber size is mildly dilated. Left ventricular systolic function is preserved at 55% to 60%. 2. Left atrium is within normal limits at 4.0 cm. Right atrium and right ventricular chamber sizes are mildly dilated. 3. Valvular structures have normal structure and motion. ECHOCARDIOGRAM REPORT [id number] ALEXIA GARG 4. Doppler interrogation reveals mild mitral regurgitation, mild tricuspid regurgitation, no other valvular insufficiency or stenosis. Pulmonary systolic pressure is estimated 33 mmHg. 5. No evidence of pericardial effusion or left ventricular thrombus. TRANSINT:[id number] Voice Confirmation ID: [id number] DOCUMENT ID: [id number] MELLY SLAUGHTER MD at 0953 CC: [id number] DICTATION DATE: 04/11/19 1214 HOSPICE MUSIC THERAPY: 04/11/19 1243 ADM IN [facility] [id number] [place] [address]
--- NOTE | 2019-04-15 11:35 | NUR ---
Prevena dressing changed on right groin/hip. Tigre intact and drainage is noted on lower aspect of incision. No odor. Pt tolerated well.
--- NOTE | 2019-04-15 13:56 | MORECARE ---
CASE MANAGEMENT DISCHARGE SUMMARY PATIENT: ALEXIA GARG STEFFANIE UNIT: [id number] ADM DATE: 04/08/19 AGE: 54 : 61 SEX: F ROOM/BED: D.2231 AUTHOR: JASMYN MALIN PHYSICIAN: REFERRING PHYSICIAN: BASILIO NIETO DO DATE OF SERVICE: 04/15/19 Discharge Plan Patient Name: ALEXIA GARG Facility: [facility]:[place] : 1965 Planned Disposition: Fpc Facility Anticipated Discharge Date: Discharge Date: Expected LOS: Initial Reviewer: [id number] Initial Review Date: 04/11/2019 Generated: 04/15/19 2:56 pm Comments DCP- Discharge Planning Updated by [id number]: Stacy Hirsch on 04/15/19 12:[address] I spoke with Ashlee Perez about skilled placement in [place], she will check on authorization status and let me know. I informed her she will need 6 weeks of IV vancomycin. CM will continue to follow and assist with discharge planning/needs. DCP- Discharge Planning Updated by [id number]: Stacy Hirsch on 04/14/19 12:[address] Updated clinical faxed to Kyle Jang and Ashlee Perez with [place] [facility]. CM will continue to follow and assist with discharge planning/needs. DCP- Discharge Planning Updated by [email or web address]: Stacy Hirsch on 04/11/19 2:[address] Patient Name: ALEXIA GARG Admission Status: Elective Accout number: [id number] Admission Date: 04-08-2019 : 1965 Admission Diagnosis: Attending: BASILIO NIETO Current LOS: 3 Anticipated DC Date: Planned Disposition: Fpc Facility Primary Insurance: [facility] MEDICARE SOLUTIONS Discharge Planning Comments: Met with patient concerning discharge planning/needs, she is alone in the room. She was "camping" prior to coming to the hospital. She states "I'm in between housing." States she has been kicked out of her motel and was going to rent a place in [place] prior to coming here. States her son lives in [place] and he will assist her with getting housing. States she would like to go to [place] [facility] prior to going home for PT. Ashlee Perez has been here and spoken to her. I filled out a JOURDAN and faxed to [facility] in [place]. Dr. Nieto had stated he would like a referral to LTACH. I spoke with the patient about the LTACH's available and she states she would like me to refer her to the [facility] in [place]. I spoke with Crystal Barrow and clinical faxed. Crystal states they will probably not hear from insurance until at least Sunday. CM will continue to follow and assist with discharge planning/needs. Joceline Garg - son - [phone] Receiving Operator: Stacy Hirsch DCPIA - Discharge Planning Initial Assessment Updated by [id number]: Stacy Hirsch on 04/11/19 3:24 pm * Is the patient Alert and Oriented? Yes * PCP Dr. Priscilla Alfaro at [facility] in [place] * Pharmacy [facility] in [place] * Preadmission Environment Homeless * ADLs Independent * Equipment Walker * List name and contact numbers for known caregivers / representatives who currently or will assist patient after discharge: Joceline Garg - son - [phone] * Verbal permission to speak to the caregivers and representatives has been obtained from the patient. Yes * Community resources currently utilized None * Additional services required to return to the preadmission environment? Yes * Can the patient safely return to the preadmission environment? No * Has this patient been hospitalized within the prior 30 days at any hospital? Yes Coverage Notice Reviewer: [id number] - Stacy Hirsch Notice Issued Date-Time: 04/11/2019 11:37 Notice Type: Patient Choice Letter Notice Delivered To: Patient Relationship to Patient: Self Dental Laboratory Supervisor Name: Delivery Method: HAND - Hand Delivered Karli Days: Prior Verbal Notification: Recipient Understood Notice: Yes Recipient Signature: Yes Med Rec Note Co-signed by Attending: Coverage Notice Comment: ASH for [facility] for SNF Last DP export: 04/14/19 12:38 pm Patient Name: ALEXIA GARG Page 90200 at 1356 All edits/amendments must be made on the electronic document DICTATION DATE: 04/15/19 1356 DRIVER TRAINER: HEATHER 04/15/19 1356 RPT#: [id number] DC DATE: STATUS: ADM IN [facility] [address] [place] [address] END OF REPORT
--- NOTE | 2019-04-15 16:47 | NUR ---
PT RESTING IN BED. NO SIGNS OF DISTRESS. IV TO LEFT UPPER ARM MIDLINE PATENT NO REDNESS OR TENDERNESS. HAS WOUND VAC TO RIGHT HIP. COMPLAINS OF PAIN. MEDICATIONS GIVEN. FAMILY AT BEDSIDE DENIES ANY FUTHER NEED AT THIS TIME. CALL LIGHT IN REACH. BED LOW POSITION.
--- NOTE | 2019-04-15 19:45 | NUR ---
PT SITTING UP IN BED WITHOUT DISTRES, ALERT AND ORIENTED. STATES PAIN 10/10. GAVE OXY ORDERED. RIGHT HIP DRESSING CDI, WOUND VAC IN PLACE AND WORKING. MIDLINE LEFT UPPER ARM SL, FLUSHES EASILY. DOES NOT WANT JERE WRAPS AROUND LOWER LEGS AT THIS TIME. ENCOURAGED TO ELEVATE LOWER LEGS. SPOUSE AT BEDSIDE. REQUESTED AND GIVEN COFFEE. DENIES OTHER NEEDS. CL IN REACH, WILL CTM
[2019-04-16 01:25] VITALS: BP 115/50
[2019-04-16 04:48] VITALS: BP 124/55
[2019-04-16 07:03] LABS: BASOPHILS 0.1 % (0-2); EOSINOPHILS 3.4 % (0-7); HEMATOCRIT 29.1 % (36.0-48.0); HEMOGLOBIN 9.5 g/dL (12-16); IMMATURE GRANULOCYTES 0.5 % (0-5); LYMPHOCYTES 26.9 % (15-50); MCH 29.1 pg (26.0-34.0); MCHC 32.6 g/dL (31.0-37.0); MCV 89.3 fL (80.0-100.0); MEAN PLATELET VOLUME 8.8 fL (7.4-10.4); MONOCYTES 9.3 % (2-11); NEUTROPHILS 59.8 % (40-80); PLATELET COUNT 482 10x3/uL (130-400); RBC 3.26 10x6/uL (4.00-5.40); RDW 15.6 % (11.5-14.5); WBC 10.1 10x3/uL (4.8-10.8)
[2019-04-16 07:14] LABS: ALBUMIN 2.4 g/dL (3.4-5.0); ANION GAP 12.2 mmol/L (8-16); BILIRUBIN - TOTAL 0.28 mg/dL (0.2-1.3); CALCIUM 8.3 mg/dL (8.5-10.1); CARBON DIOXIDE 33.1 mmol/L (21.0-32.0); MAGNESIUM - SERUM 2.1 mg/dL (1.8-2.4); POTASSIUM - SERUM 3.3 mmol/L (3.5-5.1); PROTEIN - SERUM 6.1 g/dL (6.4-8.2)
[2019-04-16 08:45] VITALS: BP 115/47
--- NOTE | 2019-04-16 09:24 | MORECARE ---
CASE MANAGEMENT DISCHARGE SUMMARY PATIENT: ALEXIA GARG STEFFANIE UNIT: [id number] ADM DATE: 04/08/19 AGE: 54 : 61 SEX: F ROOM/BED: D.[facility] AUTHOR: JASMYN MALIN PHYSICIAN: REFERRING PHYSICIAN: BASILIO NIETO DO DATE OF SERVICE: 04/16/19 Discharge Plan Patient Name: ALEXIA GARG Facility: [facility]:[place] : 1965 Planned Disposition: Penitentiary Facility Anticipated Discharge Date: Discharge Date: Expected LOS: Initial Reviewer: [email or web address] Initial Review Date: 04/11/2019 Generated: 04/16/19 10:24 am Comments DCP- Discharge Planning Updated by [id number]: Tiffany Edmondson on 04/16/19 8:[address] Received a denial from [facility] and from [facility], Ashlee VEGA has sent referral to [facility] sister companies in [place], [place] and [place] trying to get placement. CM will continue to follow and assist with dc planning DCP- Discharge Planning Updated by [email or web address]: Stacy Hirsch on 04/15/19 12:[address] I spoke with Ashlee Perez about skilled placement in [place], she will check on authorization status and let me know. I informed her she will need 6 weeks of IV vancomycin. CM will continue to follow and assist with discharge planning/needs. DCP- Discharge Planning Updated by [email or web address]: Stacy Hirsch on 04/14/19 12:[address] Updated clinical faxed to Kyle Jang and Ashlee Perez with [facility]. CM will continue to follow and assist with discharge planning/needs. DCP- Discharge Planning Updated by [email or web address]: Stacy Hirsch on 04/11/19 2:[address] Patient Name: ALEXIA GARG Admission Status: Elective Accout number: [id number] Admission Date: 04-08-2019 : 1965 Admission Diagnosis: Attending: BASILIO NIETO Current LOS: 3 Anticipated DC Date: Planned Disposition: Penitentiary Facility Primary Insurance: [facility] MEDICARE SOLUTIONS Discharge Planning Comments: Met with patient concerning discharge planning/needs, she is alone in the room. She was "camping" prior to coming to the hospital. She states "I'm in between housing." States she has been kicked out of her motel and was going to rent a place in [place] prior to coming here. States her son lives in [place] and he will assist her with getting housing. States she would like to go to [facility] prior to going home for PT. Ashlee Perez has been here and spoken to her. I filled out a JOURDAN and faxed to [facility] in [place]. Dr. Nieto had stated he would like a referral to LTACH. I spoke with the patient about the LTACH's available and she states she would like me to refer her to the [facility] in [place]. I spoke with Crystal Barrow and clinical faxed. Crystal states they will probably not hear from insurance until at least Sunday. CM will continue to follow and assist with discharge planning/needs. Joceline Garg - tyler - [phone] Shift Engineer: Stacy Hirsch DCPIA - Discharge Planning Initial Assessment Updated by [email or web address]: Stacy Hirsch on 04/11/19 3:24 pm * Is the patient Alert and Oriented? Yes * PCP Dr. Priscilla Alafro at [facility] in [place] * Pharmacy [facility] in [place] * Preadmission Environment Homeless * ADLs Independent * Equipment Walker * List name and contact numbers for known caregivers / representatives who currently or will assist patient after discharge: Joceline Garg - tyler - [phone] * Verbal permission to speak to the caregivers and representatives has been obtained from the patient. Yes * Community resources currently utilized None * Additional services required to return to the preadmission environment? Yes * Can the patient safely return to the preadmission environment? No * Has this patient been hospitalized within the prior 30 days at any hospital? Yes Coverage Notice Reviewer: [id number] - Stacy Hirsch Notice Issued Date-Time: 04/11/2019 11:37 Notice Type: Patient Choice Letter Notice Delivered To: Patient Relationship to Patient: Self Shirt Folding Machine Operator Name: Delivery Method: HAND - Hand Delivered Karli Days: Prior Verbal Notification: Recipient Understood Notice: Yes Recipient Signature: Yes Med Rec Note Co-signed by Attending: Coverage Notice Comment: ASH for [facility] for SNF Last DP export: 04/15/19 12:56 pm Patient Name: ALEXIA GARG Page 07219 at 0924 All edits/amendments must be made on the electronic document DICTATION DATE: 04/16/19923 GRANULATING MACHINE OPERATOR: HEATHER 04/16/19923 RPT#: [id number] DC DATE: STATUS: ADM IN [facility] [address] [place] [address] END OF REPORT
--- NOTE | 2019-04-16 10:00 | NUR ---
PT IS WITHOUT DISTRESS.FAMILY AT BEDSIDE.
[2019-04-16 12:30] VITALS: BP 125/62
--- NOTE | 2019-04-16 14:51 | NUR ---
NUTRITION F/U PT TOLERATING DIABETIC DIET WITH 100% INTAKE RECENT MEALS. ALSO RECEIVING GLUCERNA SHAKE WITH MEALS. ENCOURAGED PT TO ORDER EXTRA PROTEIN ON MEN[address]. RD FOLLOWING
[2019-04-16 18:20] VITALS: BP 116/51
--- NOTE | 2019-04-16 19:41 | NUR ---
PT SITTING UP IN BED WATCHING TV. SIGNIFICANT OTHER IN ROOM. DENIES NEEDS OR PAIN AT THIS TIME. BED IN LOW SIDE RAILS X2. A/O X4. RESP EVEN AND UNLABORED. WCTM
[2019-04-16 22:18] VITALS: BP 120/43
--- NOTE | 2019-04-17 00:08 | NUR ---
PT RESTING QUIETLY. CL IN REACH. NO DISTRESS NOTED. CPOC
[2019-04-17 01:59] VITALS: BP 134/50
--- NOTE | 2019-04-17 04:01 | NUR ---
I have reviewed this patient and I concur with the Shift Assessment completed by the Licensed Practical Nurse today this shift.
[2019-04-17 05:46] VITALS: BP 123/48
--- NOTE | 2019-04-17 06:38 | NUR ---
PT COMPLAINING OF JERE WRAP HURTING EXTREMELY BAD AND REQUESTING THEM OFF FOR A LITTLE WHILE TO "BREATHE". WILL RELAY MESSAGE ONTO DAY SHIFT ABOUT JERE WRAP BEING REMOVED AT THIS TIME. TOLERATED WELL ALL NIGHT UNTIL NOW. WILL CONTINUE TO MONITOR.
[2019-04-17 07:11] LABS: BASOPHILS 0.1 % (0-2); EOSINOPHILS 3.3 % (0-7); HEMATOCRIT 24.8 % (36.0-48.0); HEMOGLOBIN 8.1 g/dL (12-16); IMMATURE GRANULOCYTES 0.2 % (0-5); LYMPHOCYTES 24.8 % (15-50); MCHC 32.7 g/dL (31.0-37.0); MCV 88.9 fL (80.0-100.0); MEAN PLATELET VOLUME 8.5 fL (7.4-10.4); NEUTROPHILS 60.6 % (40-80); PLATELET COUNT 426 10x3/uL (130-400); RBC 2.79 10x6/uL (4.00-5.40); RDW 15.2 % (11.5-14.5); WBC 8.1 10x3/uL (4.8-10.8)
[2019-04-17 07:26] LABS: ALBUMIN 2.5 g/dL (3.4-5.0); ANION GAP 12.6 mmol/L (8-16); BILIRUBIN - TOTAL 0.29 mg/dL (0.2-1.3); CALCIUM 7.8 mg/dL (8.5-10.1); CARBON DIOXIDE 33.5 mmol/L (21.0-32.0); POTASSIUM - SERUM 3.1 mmol/L (3.5-5.1); PROTEIN - SERUM 6.1 g/dL (6.4-8.2)
--- NOTE | 2019-04-17 08:20 | NUR ---
PATIENT IN BED WITH IV INTACT. NO COMPLAINTS OR SIGNS OF DISTRESS. CALL LIGHT WITHIN REACH.
--- NOTE | 2019-04-17 09:23 | MORECARE ---
CASE MANAGEMENT DISCHARGE SUMMARY PATIENT: ALEXIA GARG STEFFANIE UNIT: [id number] ADM DATE: 04/08/19 AGE: 54 : 61 SEX: F ROOM/BED: D.[facility] AUTHOR: JASMYN MALIN PHYSICIAN: REFERRING PHYSICIAN: BASILIO NIETO DO DATE OF SERVICE: 04/17/19 Discharge Plan Patient Name: ALEXIA GARG Facility: [facility]:[place] : 1965 Planned Disposition: Group Home Facility Anticipated Discharge Date: Discharge Date: Expected LOS: Initial Reviewer: [email or web address] Initial Review Date: 04/11/2019 Generated: 04/17/19 10:22 am Comments DCP- Discharge Planning Updated by [email or web address]: Tiffany Edmondson on 04/16/19 8:[address] Received a denial from [facility] and from [facility], Ashlee VEGA has sent referral to [place]'s sister companies in [place], [place] and [place] trying to get placement. CM will continue to follow and assist with dc planning DCP- Discharge Planning Updated by [email or web address]: Stacy Hirsch on 04/15/19 12:[address] I spoke with Ashlee Perez about skilled placement in [place], she will check on authorization status and let me know. I informed her she will need 6 weeks of IV vancomycin. CM will continue to follow and assist with discharge planning/needs. DCP- Discharge Planning Updated by [id number]: Stacy Hirsch on 04/14/19 12:[address] Updated clinical faxed to Kyle Jang and Ashlee Perez with [place] [facility]. CM will continue to follow and assist with discharge planning/needs. DCP- Discharge Planning Updated by [email or web address]: Stacy Hirsch on 04/11/19 2:[address] Patient Name: ALEXIA GARG Admission Status: Elective Accout number: [id number] Admission Date: 04-08-2019 : 1965 Admission Diagnosis: Attending: BASILIO NIETO Current LOS: 3 Anticipated DC Date: Planned Disposition: Group Home Facility Primary Insurance: [facility] MEDICARE SOLUTIONS Discharge Planning Comments: Met with patient concerning discharge planning/needs, she is alone in the room. She was "camping" prior to coming to the hospital. She states "I'm in between housing." States she has been kicked out of her motel and was going to rent a place in [place] prior to coming here. States her son lives in [place] and he will assist her with getting housing. States she would like to go to [facility] prior to going home for PT. Ashlee Perez has been here and spoken to her. I filled out a JOURDAN and faxed to [facility] in [place]. Dr. Nieto had stated he would like a referral to LTACH. I spoke with the patient about the LTACH's available and she states she would like me to refer her to the [facility] in [place]. I spoke with Crystal Barrow and clinical faxed. Crystal states they will probably not hear from insurance until at least Sunday. CM will continue to follow and assist with discharge planning/needs. Joceline Garg - tyler - [phone] Marketing Project Specialist: Stacy Hirsch DCPIA - Discharge Planning Initial Assessment Updated by [id number]: Stacy Hirsch on 04/11/19 3:24 pm * Is the patient Alert and Oriented? Yes * PCP Dr. Priscilla Alfaro at [facility] in [place] * Pharmacy [facility] in [place] * Preadmission Environment Homeless * ADLs Independent * Equipment Walker * List name and contact numbers for known caregivers / representatives who currently or will assist patient after discharge: Joceline Garg - tyler - [phone] * Verbal permission to speak to the caregivers and representatives has been obtained from the patient. Yes * Community resources currently utilized None * Additional services required to return to the preadmission environment? Yes * Can the patient safely return to the preadmission environment? No * Has this patient been hospitalized within the prior 30 days at any hospital? Yes External Providers External Provider: [facility] Next Contact Date: Service Request Date: Service Type: Resolution: Reviewer: Comments: Coverage Notice Reviewer: [id number] - Stacy Hirsch Notice Issued Date-Time: 04/11/2019 11:37 Notice Type: Patient Choice Letter Notice Delivered To: Patient Relationship to Patient: Self Analysis Intern Name: Delivery Method: HAND - Hand Delivered Karli Days: Prior Verbal Notification: Recipient Understood Notice: Yes Recipient Signature: Yes Med Rec Note Co-signed by Attending: Coverage Notice Comment: ASH for [facility] for SNF Last DP export: 04/16/19 8:24 am Patient Name: ALEXIA GARG Page 02639 at 0923 All edits/amendments must be made on the electronic document DICTATION DATE: 04/17/19921 COST CLERK: HEATHER 04/17/19921 RPT#: [id number] DC DATE: STATUS: ADM IN [facility] [address] [place] [address] END OF REPORT
[2019-04-17 10:52] VITALS: BP 141/90
--- NOTE | 2019-04-17 11:37 | MORECARE ---
CASE MANAGEMENT DISCHARGE SUMMARY PATIENT: ALEXIA GARG UNIT: [id number] ADM DATE: 04/08/19 AGE: 54 : 61 SEX: F ROOM/BED: D.[facility] AUTHOR: KIMO,JASMYN PHYSICIAN: REFERRING PHYSICIAN: BASILIO NIETO DO DATE OF SERVICE: 04/17/19 Discharge Plan Patient Name: ALEXIA GARG Facility: [facility]:[place] : 1965 Planned Disposition: Alf Facility Anticipated Discharge Date: Discharge Date: Expected LOS: Initial Reviewer: [email or web address] Initial Review Date: 04/11/2019 Generated: 04/17/19 12:36 pm Comments DCP- Discharge Planning Updated by [email or web address]: Crystal Sanders on 04/17/19 10:[address] Patient Name: ALEXIA GARG Encounter No: [id number] : 1965 Primary Insurance: [facility] MEDICARE SOLUTIONS Senior Hydrogeologist: :Crystal Sanders UR Note: Spoke with Devika at [facility] and they are waiting on Auth for patient admit. Updated clinicals faxed to [facility]. Waiting for call back. CM to follow and assist. Crystal Sanders DCP- Discharge Planning Updated by [id number]: Tiffany Edmondson on 04/16/19 8:[address] Received a denial from LTACH and from [facility], Ashlee with [facility] has sent referral to [facility] sister companies in [place], [place] and [place] trying to get placement. CM will continue to follow and assist with dc planning DCP- Discharge Planning Updated by [id number]: Stacy Hirsch on 04/15/19 12:[address] I spoke with Ashlee Perez about skilled placement in [place], she will check on authorization status and let me know. I informed her she will need 6 weeks of IV vancomycin. CM will continue to follow and assist with discharge planning/needs. DCP- Discharge Planning Updated by [id number]: Stacy Hirsch on 04/14/19 12:[address] Updated clinical faxed to Kyle Jang and Ashlee Perez with [facility]. CM will continue to follow and assist with discharge planning/needs. DCP- Discharge Planning Updated by [email or web address]: Stacy Zavaladayanara on 04/11/19 2:[address] Patient Name: ALEXIA GARG Admission Status: Elective Accout number: [id number] Admission Date: 04-08-2019 : 1965 Admission Diagnosis: Attending: BASILIO NIETO Current LOS: 3 Anticipated DC Date: Planned Disposition: Alf Facility Primary Insurance: [facility] MEDICARE SOLUTIONS Discharge Planning Comments: Met with patient concerning discharge planning/needs, she is alone in the room. She was "camping" prior to coming to the hospital. She states "I'm in between housing." States she has been kicked out of her motel and was going to rent a place in [place] prior to coming here. States her son lives in [place] and he will assist her with getting housing. States she would like to go to [facility] prior to going home for PT. Ashlee Perez has been here and spoken to her. I filled out a JOURDAN and faxed to [facility] in [place]. Dr. Nieto had stated he would like a referral to LTACH. I spoke with the patient about the LTACH's available and she states she would like me to refer her to the [facility] in [place]. I spoke with Crystal Barrow and clinical faxed. Crystal states they will probably not hear from insurance until at least Sunday. CM will continue to follow and assist with discharge planning/needs. Joceline Garg - son - [phone] Senior Hydrogeologist: Stacy Hirsch DCPIA - Discharge Planning Initial Assessment Updated by [id number]: Stacy Zavaladayanara on 04/11/19 3:24 pm * Is the patient Alert and Oriented? Yes * PCP Dr. Priscilla Alfaro at [facility] in [place] * Pharmacy [facility] in [place] * Preadmission Environment Homeless * ADLs Independent * Equipment Walker * List name and contact numbers for known caregivers / representatives who currently or will assist patient after discharge: Joceline Garg - tyler - [phone] * Verbal permission to speak to the caregivers and representatives has been obtained from the patient. Yes * Community resources currently utilized None * Additional services required to return to the preadmission environment? Yes * Can the patient safely return to the preadmission environment? No * Has this patient been hospitalized within the prior 30 days at any hospital? Yes Coverage Notice Reviewer: [email or web address] Joyce Stacy Hirsch Notice Issued Date-Time: 04/11/2019 11:37 Notice Type: Patient Choice Letter Notice Delivered To: Patient Relationship to Patient: Self Tour Sales Representative Name: Delivery Method: HAND - Hand Delivered Karli Days: Prior Verbal Notification: Recipient Understood Notice: Yes Recipient Signature: Yes Med Rec Note Co-signed by Attending: Coverage Notice Comment: ASH for [facility] for SNF Last DP export: 04/17/19 8:23 am Patient Name: ALEXIA GARG Page 70240 at 1137 All edits/amendments must be made on the electronic document DICTATION DATE: 04/17/19 1136 MOBILE SERVICE RV TECHNICIAN: HEATHER 04/17/19 1136 RPT#: [id number] DC DATE: STATUS: ADM IN [facility] [address] [place] [address] END OF REPORT
[2019-04-17 13:33] VITALS: BP 110/55
--- NOTE | 2019-04-17 14:44 | NUR ---
OT NOTE: UPON ENTERING ROOM, PT WITH HEADPHONES ON AND SINGING VERY LOUDLY. STATED THAT SHE WAS A PROFESSIONAL DIAMOND AND WAS GOING TO START IT BACK UP AGAIN. EXPLAINED TO PT THAT WE HAD TO GET UP AND START MOVING AROUND PER PHYSICIAN ORDERS. BED MOB WITH MIN ASSIST. SIT TO STAND WITH WALKER AND MIN ASSIST. CHANGED PTS PULL UPS WITH MAX ASSIST. WHILE STANDING , NOTICED BLOOD DRIPPING DOWN HER LEG. GOT PT BACK TO BED AND THERE WAS NO SUCTION GOING THROUGH WOUND VAC. ERROR SIGNAL ON VAC. NOTIFIED NURSING WHO , IN TURN, CALLED FOR WOUND CARE NURSE. CHANGED PTS GOWN IT WAS WET.. REQUIRED ONLY MIN ASSIST. WILL ATTEMPT FURTHER THERAPY TOMORROW. EDISON ANDERSON, OTR/L
--- NOTE | 2019-04-17 16:45 | NUR ---
OT NOTE: PT COMPLETED BED MOB WITH CGA. PT COMPLETED EOB SITTING WITH SPV. PT COMPLETED HYGIENE TASKS WITH MIN A SECONDARY TO WOUND VAC COMPLICATIONS. NURSING NOTIFIED OF WOUND VAC COMPLICATION. THANK YOU, GUSTAVO CORONA
[2019-04-17 17:23] VITALS: BP 110/50
--- NOTE | 2019-04-17 18:45 | NUR ---
PATIENT IN BED WITH NO COMPLAINTS AT THIS TIME. IV INTACT. CALL LIGHT WITHINR EACH. REFUSES BSCDS.;
--- NOTE | 2019-04-17 19:15 | NUR ---
PT ALERT AND ORIENTED WHEN ENTERING THE ROOM. UPRIGHT POSITION. HAS INCISION TO THE RIGHT HIP WITH WOUND VAC SECURED TO INCISION SITE. HAS WOUND VAC HAS MODERATE AMOUNT OF DRAINAGE IN CANNISTER. UPPER LEFT CORNER TO INCISION SITE PRESENTS WITH SLIGHT REDNESS THAT REACHES INTO THE ABDOMINAL FOLD. PATIENT INCONTINENT OF BOWEL AND BLADDER. ORANGE URINE NOTED DUE TO MEDICATION THERAPY AT THIS TIME. UPPER LEFT MIDLINE DRESSING SHOWED TO BE PEELING AT THE SIDES. REINFORCED WITH TEGARDERMS. SECURED AND SALINE LOCKED AT THIS TIME. PATIENT ON ROOM AIR. ABLE TO STAND WITH ASSISTANCE. REPORTS BOWEL MOVEMENT TODAY. STATES "CAN I PLEASE HAVE MY XANAX AND ZANAFLEX AT 8:30". INFORMED PATIENT THAT THIS NURSE WOULD TRY TO BE IN HER AT THAT TIME AND DEPENDING ON BLOOD PRESSURE IF MEDICATION ADMINISTRATION WOULD OCCUR AT THE EXACT TIMING. PATIENT PLEASANT AND COMPLIANT. DENIES FURTHER ISSUES AT THIS TIME. CALL LIGHT IN PATIENT HAND. BED LOCKED AND LOWERED. CPOC/
[2019-04-17 20:00] VITALS: BP 111/52
[2019-04-18] VITALS: BP 117/63
--- NOTE | 2019-04-18 03:00 | NUR ---
I have reviewed this patient and I concur with the Shift Assessment completed by the Licensed Practical Nurse today this shift.
[2019-04-18 04:00] VITALS: BP 111/53
[2019-04-18 04:13] LABS: BASOPHILS 0.2 % (0-2); EOSINOPHILS 3.3 % (0-7); HEMATOCRIT 24.8 % (36.0-48.0); HEMOGLOBIN 8.2 g/dL (12-16); IMMATURE GRANULOCYTES 0.6 % (0-5); LYMPHOCYTES 20.6 % (15-50); MCH 29.7 pg (26.0-34.0); MCHC 33.1 g/dL (31.0-37.0); MCV 89.9 fL (80.0-100.0); MEAN PLATELET VOLUME 8.2 fL (7.4-10.4); MONOCYTES 14.1 % (2-11); NEUTROPHILS 61.2 % (40-80); PLATELET COUNT 383 10x3/uL (130-400); RBC 2.76 10x6/uL (4.00-5.40); RDW 15.3 % (11.5-14.5); WBC 8.3 10x3/uL (4.8-10.8)
[2019-04-18 04:23] LABS: ALBUMIN 2.4 g/dL (3.4-5.0); ANION GAP 10.7 mmol/L (8-16); BILIRUBIN - TOTAL 0.5 mg/dL (0.2-1.3); CALCIUM 8.4 mg/dL (8.5-10.1); CREATININE - SERUM 1.1 mg/dL (0.6-1.3)
[2019-04-18 04:24] LABS: POTASSIUM - SERUM 3.7 mmol/L (3.5-5.1)
--- NOTE | 2019-04-18 08:45 | NUR ---
PATIENT IN BED WITH IV INTACT. NO COMPLAINTS OR SIGNS OF DISTRESS. CALL LIGHTW ITHIN REACH.
[2019-04-18 08:55] VITALS: BP 128/53
--- NOTE | 2019-04-18 10:06 | MORECARE ---
CASE MANAGEMENT DISCHARGE SUMMARY PATIENT: ALEXIA GARG UNIT: [id number] ADM DATE: 04/08/19 AGE: 54 : 61 SEX: F ROOM/BED: D.2231 AUTHOR: KIMO,JASMYN PHYSICIAN: REFERRING PHYSICIAN: BASILIO NIETO DO DATE OF SERVICE: 04/18/19 Discharge Plan Patient Name: ALEXIA GARG Facility: [facility]:[place] : 1965 Planned Disposition: Senior Care Facility Anticipated Discharge Date: Discharge Date: Expected LOS: Initial Reviewer: [id number] Initial Review Date: 04/11/2019 Generated: 04/18/19 11:05 am Comments DCP- Discharge Planning Updated by [id number]: Crystal Sanders on 04/18/19 9:[address] Patient Name: ALEXIA GARG Admission Status: Elective Accout number: [id number] Admission Date: 04-08-2019 : 1965 Admission Diagnosis:POSTPROC SEROMA OF A MS STRUCTURE FOL A MS SYS PROCEDUR Attending: BASILIO NIETO Current LOS: 10 Anticipated DC Date: Planned Disposition: Senior Care Facility Primary Insurance: [facility] [employer] Discharge Planning Comments: CM SPOKE TO DENIA AND [facility] IN [place] HAS ACCEPTED THE PATIENT AND CAN TAKE TODAY. PATIENT AWARE AND IN AGREEMENT. RN TO CALL REPORT TO [facility] AT [phone]. CM TO FOLLOW AND ASSIST. Prior Authorization Technician: Crystal Sanders DCP- Discharge Planning Updated by [email or web address]: Crystal Sanders on 04/17/19 10:[address] Patient Name: ALEXIA GARG Encounter No: [id number] : 1965 Primary Insurance: [facility] [employer] Prior Authorization Technician: :Crystal Sanders UR Note: Spoke with Devika at [facility] and they are waiting on Auth for patient admit. Updated clinicals faxed to [facility]. Waiting for call back. CM to follow and assist. Crystal Sanders DCP- Discharge Planning Updated by [id number]: Tiffany Edmondson on 04/16/19 8:[address] Received a denial from [facility] and from [facility] nursing, Denia with [facility] has sent referral to [place]'s sister companies in [place], [place] trying to get placement. CM will continue to follow and assist with dc planning DCP- Discharge Planning Updated by [email or web address]: Stacy Hirsch on 04/15/19 12:[address] I spoke with Denia Perez about skilled placement in [place], she will check on authorization status and let me know. I informed her she will need 6 weeks of IV vancomycin. CM will continue to follow and assist with discharge planning/needs. DCP- Discharge Planning Updated by [email or web address]: Stacy Hirsch on 04/14/19 12:[address] Updated clinical faxed to [facility] and Denia Perez with [place] [facility]. CM will continue to follow and assist with discharge planning/needs. DCP- Discharge Planning Updated by [id number]: Stacy Hirsch on 04/11/19 2:[address] Patient Name: ALEXIA GARG Admission Status: Elective Accout number: [id number] Admission Date: 04-08-2019 : 1965 Admission Diagnosis: Attending: BASILIO NIETO Current LOS: 3 Anticipated DC Date: Planned Disposition: Senior Care Facility Primary Insurance: [facility] [employer] Discharge Planning Comments: Met with patient concerning discharge planning/needs, she is alone in the room. She was "camping" prior to coming to the hospital. She states "I'm in between housing." States she has been kicked out of her motel and was going to rent a place in [place] prior to coming here. States her son lives in [place] and he will assist her with getting housing. States she would like to go to [facility] prior to going home for PT. Denia Perez has been here and spoken to her. I filled out a JOURDAN and faxed to [facility] in [place]. Dr. Nieto had stated he would like a referral to LTACH. I spoke with the patient about the LTACH's available and she states she would like me to refer her to the [facility] in [place]. I spoke with Crystal Barrow and clinical faxed. Crystal states they will probably not hear from insurance until at least Sunday. CM will continue to follow and assist with discharge planning/needs. Joceline scott - [phone] Prior Authorization Technician: Stacy Hirsch DCPIA - Discharge Planning Initial Assessment Updated by [email or web address]: Stacy Hirsch on 04/11/19 3:24 pm * Is the patient Alert and Oriented? Yes * PCP Dr. Priscilla Alfaro at [facility] in [place] * Pharmacy [facility] in [place] * Preadmission Environment Homeless * ADLs Independent * Equipment Walker * List name and contact numbers for known caregivers / representatives who currently or will assist patient after discharge: Joceline scott - [phone] * Verbal permission to speak to the caregivers and representatives has been obtained from the patient. Yes * Community resources currently utilized None * Additional services required to return to the preadmission environment? Yes * Can the patient safely return to the preadmission environment? No * Has this patient been hospitalized within the prior 30 days at any hospital? Yes Coverage Notice Reviewer: [id number] - Stacy Hirsch Notice Issued Date-Time: 04/11/2019 11:37 Notice Type: Patient Choice Letter Notice Delivered To: Patient Relationship to Patient: Self Family Reunification Specialist Name: Delivery Method: HAND - Hand Delivered Karli Days: Prior Verbal Notification: Recipient Understood Notice: Yes Recipient Signature: Yes Med Rec Note Co-signed by Attending: Coverage Notice Comment: ASH for [facility] for SNF Last DP export: 04/17/19 10:37 am Patient Name: ALEXIA GARG Page 75419 at 1006 All edits/amendments must be made on the electronic document DICTATION DATE: 04/18/19 1005 MEAT HANGER: HEATHER 04/18/19 1005 RPT#: [id number] DC DATE: STATUS: ADM IN [facility] [address] [place] [address] END OF REPORT
--- NOTE | 2019-04-18 10:15 | NUR ---
PATIENT CHANGED AND ASSISTED TO [facility] FOR BM. IV INTACT. CALL LIGHT WITHIN REACH.
[2019-04-18] MEDS ORDERED: VISTARIL50 MG PO (11:09)
[2019-04-18] MEDS ORDERED: OXYCODONE HCL5 M1 PO (11:09)
[2019-04-18] MEDS ORDERED: RIFADIN300 MG PO (11:10)
[2019-04-18] MEDS ORDERED: ELIQUIS2.5 MG PO (11:11)
--- NOTE | 2019-04-18 13:08 | NUR ---
REPORT CALLED TO IMANI MAKI AT THIS TIME. PATIENT RECIEVED DC PAPERS AND SENT WITH AUTOMATIC HEMMER TO [employer] WITH PATIENTS PERSONAL BELONGINGS. PATIENT STATES SHE IS MISSING A VAPE THAT WAS TIED IN A BLUE SOCK IN HER ROOM. LOOKED IN ROOM AND COULDNT FIND ANYWHERE. EXPLAINED TO PATIENT THAT IF FOUND IN [place] WOULD NOTIFY HER AND LET HER KNOW. VERBALIZED UNDERSTANDING. MIDLINE FLUSHED AND INTACT WITH ORANGE CAP ON. PRESCRIPTIONS SENT WITH PAPER WORK. NO QUESTIONS AT THIS TIME. ESCORTED OUT OF HOSPITAL WITH PERSONAL BELONGINGS TO [employer] VEHICLE.
--- NOTE | 2019-04-18 17:06 | NUR ---
OT NOTE: PT EXHIBITED SELF LIMITING BEHAVIOR AND WAS ERRATIC. PT MADE CONTRADICTORY STATEMENTS. PT STATED SHE WAS I AND DID NOT NEED ASSISTANCE. PT REQUIRED MIN A/CGA FOR SUPINE TO SIT. PT REQUIRED MOD A WITH HARSH/DOFF BRIEFS. PT STATED" I CANT PUT THOSE ON...I NEED HELP." PT EXHIBITED SOME DIFFICULTY WITH TOILET HYGIENE BUT DID NOT WANT ASSISTANCE. PT REFUSED TO GO OUTSIDE OF ROOM FOR AMBULATION. THANK YOU, GUSTAVO CORONA
--- NOTE | 2019-04-21 08:03 | MORECARE ---
CASE MANAGEMENT DISCHARGE SUMMARY PATIENT: ALEXIA GARG STEFFANIE UNIT: [id number] ADM DATE: 04/08/19 AGE: 54 : 61 SEX: F ROOM/BED: D.2231 AUTHOR: JASMYN MALIN PHYSICIAN: REFERRING PHYSICIAN: BASILIO NIETO DO DATE OF SERVICE: 04/21/19 Discharge Plan Patient Name: ALEXIA GARG Facility: [facility]:[place] : 1965 Planned Disposition: Group Home Facility Anticipated Discharge Date: Discharge Date: 04/18/2019 Expected LOS: Initial Reviewer: [id number] Initial Review Date: 04/11/2019 Generated: 04/21/19 9:03 am Comments DCP- Discharge Planning Updated by [id number]: Crystal Sanders on 04/18/19 9:[address] Patient Name: ALEXIA GARG Admission Status: Elective Accout number: [id number] Admission Date: 04-08-2019 : 1965 Admission Diagnosis:POSTPROC SEROMA OF A MS STRUCTURE FOL A MS SYS PROCEDUR Attending: BASILIO NIETO Current LOS: 10 Anticipated DC Date: Planned Disposition: Group Home Facility Primary Insurance: [facility] SOLUTIONS Discharge Planning Comments: CM SPOKE TO DENIA AND [facility] IN [place] HAS ACCEPTED THE PATIENT AND CAN TAKE TODAY. PATIENT AWARE AND IN AGREEMENT. RN TO CALL REPORT TO [facility] AT [phone]. CM TO FOLLOW AND ASSIST. Research Specialist: Crystal Sanders DCP- Discharge Planning Updated by [email or web address]: Crystal Sanders on 04/17/19 10:[address] Patient Name: ALEXIA GARG Encounter No: [id number] : 1965 Primary Insurance: [facility] [employer] SOLUTIONS Research Specialist: :Crystal Sanders UR Note: Spoke with Devika at [facility] and they are waiting on Auth for patient admit. Updated clinicals faxed to [facility]. Waiting for call back. CM to follow and assist. Crystal Sanders DCP- Discharge Planning Updated by [email or web address]: Tiffany Edmondson on 04/16/19 8:[address] Received a denial from [facility] and from [facility], Denia with [facility] has sent referral to [place]'s sister companies in [place] trying to get placement. CM will continue to follow and assist with dc planning DCP- Discharge Planning Updated by [id number]: Stacy Hirsch on 04/15/19 12:[address] I spoke with Denia Perez about skilled placement in [place], she will check on authorization status and let me know. I informed her she will need 6 weeks of IV vancomycin. CM will continue to follow and assist with discharge planning/needs. DCP- Discharge Planning Updated by [email or web address]: Stacy Hirsch on 04/14/19 12:[address] Updated clinical faxed to [facility] Jang and Denia Perez with [place] [facility]. CM will continue to follow and assist with discharge planning/needs. DCP- Discharge Planning Updated by [email or web address]: Stacy Hirsch on 04/11/19 2:[address] Patient Name: ALEXIA GARG Admission Status: Elective Accout number: [id number] Admission Date: 04-08-2019 : 1965 Admission Diagnosis: Attending: BASILIO NIETO Current LOS: 3 Anticipated DC Date: Planned Disposition: Group Home Facility Primary Insurance: [facility]IC[facility] SOLUTIONS Discharge Planning Comments: Met with patient concerning discharge planning/needs, she is alone in the room. She was "camping" prior to coming to the hospital. She states "I'm in between housing." States she has been kicked out of her motel and was going to rent a place in [place] prior to coming here. States her son lives in [place] and he will assist her with getting housing. States she would like to go to [facility] prior to going home for PT. Denia Perez has been here and spoken to her. I filled out a JOURDAN and faxed to [facility] in [place]. Dr. Nieto had stated he would like a referral to LTACH. I spoke with the patient about the LTACH's available and she states she would like me to refer her to the [facility] in [place]. I spoke with Crystal Barrow and clinical faxed. Crystal states they will probably not hear from insurance until at least Sunday. CM will continue to follow and assist with discharge planning/needs. Joceline scott - [phone] Research Specialist: Stacy Hirsch SCPIA - Discharge Planning Initial Assessment Updated by [email or web address]: Stacy Hirsch on 04/11/19 3:24 pm * Is the patient Alert and Oriented? Yes * PCP Dr. Priscilla Alfaro at [facility] in [place] * Pharmacy [facility] in [place] * Preadmission Environment Homeless * ADLs Independent * Equipment Walker * List name and contact numbers for known caregivers / representatives who currently or will assist patient after discharge: Joceline scott - [phone] * Verbal permission to speak to the caregivers and representatives has been obtained from the patient. Yes * Community resources currently utilized None * Additional services required to return to the preadmission environment? Yes * Can the patient safely return to the preadmission environment? No * Has this patient been hospitalized within the prior 30 days at any hospital? Yes Coverage Notice Reviewer: [id number] - Stacy Hirsch Notice Issued Date-Time: 04/11/2019 11:37 Notice Type: Patient Choice Letter Notice Delivered To: Patient Relationship to Patient: Self Senior Oracle Pl Sql Developer Name: Delivery Method: HAND - Hand Delivered Karli Days: Prior Verbal Notification: Recipient Understood Notice: Yes Recipient Signature: Yes Med Rec Note Co-signed by Attending: Coverage Notice Comment: ASH for [facility] for SNF Reviewer: [id number] Joyce Sanders Notice Issued Date-Time: 04/18/2019 12:48 Notice Type: IM Discharge Notice Notice Delivered To: Patient Relationship to Patient: Senior Oracle Pl Sql Developer Name: Delivery Method: HAND - Hand Delivered Karli Days: Prior Verbal Notification: Recipient Understood Notice: Yes Recipient Signature: Yes Med Rec Note Co-signed by Attending: Coverage Notice Comment: Last DP export: 04/18/19 9:06 am Patient Name: ALEXIA GARG Page 52996 at 0803 All edits/amendments must be made on the electronic document DICTATION DATE: 04/21/19 08 BUSINESS TRAVEL CONSULTANT: HEATHER 04/21/19 08 RPT#: [id number] DC DATE:04/18/19 STATUS: DIS IN [facility] [address] [place] [address] END OF REPORT
[2019-06-05] MEDS ORDERED: HYDROCODONE-A1 UDTA2 PO (10:01)
[2019-06-05] MEDS ORDERED: XANAX0.5 MG PO (10:02)
[2019-06-05] MEDS ORDERED: K-DUR20 MEQ PO (10:09)
== END 2019-04-18 14:26 | DRG 467 ==
LOC: D.MS 19:20
PROVIDERS: Emergency Medicine; Internal Medicine Nephrology; ADMIT Orthopaedic Surgery; ATTEND Orthopaedic Surgery
PROC: 0SW90JZ Revision of Synthetic Substitute in Right Hip Joint, Open Approach (ICD-10-PCS; principal; 2019-04-09 08:15)
DX: T84.51XA Infection and inflammatory reaction due to internal right hip prosthesis, initial encounter (principal); M00.9 Pyogenic arthritis, unspecified; M96.842 Postprocedural seroma of a musculoskeletal structure following a musculoskeletal system procedure; E87.1 Hypo-osmolality and hyponatremia; Y83.9 Surgical procedure, unspecified as the cause of abnormal reaction of the patient, or of later complication, without mention of misadventure at the time of the procedure; E66.9 Obesity, unspecified; D64.9 Anemia, unspecified; F60.3 Borderline personality disorder; I50.9 Heart failure, unspecified

== ENCOUNTER 2019-04-29 13:00 | Inpatient (IN) | payer MEDICARE, MEDICAID ==
[~2019-04-29] VITALS: Ht 167.6 cm; Wt 154.7 kg
[~2019-04-29 13:00] MED LIST changes: +RIFADIN300 MG PO
[2019-04-29 15:16] VITALS: BP 135/82; BMI 55.1
[2019-04-29 20:00] VITALS: BP 99/48
[2019-04-30] VITALS (11 sets, daily range): BP systolic 108–177; BP diastolic 50–71; Ht 167.6 cm; Wt 154.7 kg
[2019-04-30 06:13] LABS: BASOPHILS 0.1 % (0-2); EOSINOPHILS 4.3 % (0-7); HEMATOCRIT 30.7 % (36.0-48.0); HEMOGLOBIN 9.9 g/dL (12-16); IMMATURE GRANULOCYTES 0.3 % (0-5); LYMPHOCYTES 31.5 % (15-50); MCH 29.2 pg (26.0-34.0); MCHC 32.2 g/dL (31.0-37.0); MCV 90.6 fL (80.0-100.0); MEAN PLATELET VOLUME 8.7 fL (7.4-10.4); MONOCYTES 9.8 % (2-11); PLATELET COUNT 364 10x3/uL (130-400); RBC 3.39 10x6/uL (4.00-5.40); RDW 14.7 % (11.5-14.5); WBC 7.7 10x3/uL (4.8-10.8)
[2019-04-30 06:28] LABS: INR 0.99 (0.85-1.17); PROTIME 12.6 SECONDS (11.6-15.0)
[2019-04-30 06:43] LABS: ALBUMIN 2.6 g/dL (3.4-5.0); ANION GAP 10.8 mmol/L (8-16); BILIRUBIN - TOTAL 0.22 mg/dL (0.2-1.3); CALCIUM 8.3 mg/dL (8.5-10.1); CARBON DIOXIDE 29.2 mmol/L (21.0-32.0); CREATININE - SERUM 0.9 mg/dL (0.6-1.3); PROTEIN - SERUM 6.8 g/dL (6.4-8.2)
[2019-05-01] VITALS: BP 133/71
[2019-05-01 04:00] VITALS: BP 135/69
[2019-05-01 06:20] LABS: BASOPHILS 0.2 % (0-2); EOSINOPHILS 3.3 % (0-7); HEMATOCRIT 27.7 % (36.0-48.0); HEMOGLOBIN 9.1 g/dL (12-16); IMMATURE GRANULOCYTES 0.2 % (0-5); LYMPHOCYTES 20.9 % (15-50); MCH 29.4 pg (26.0-34.0); MCHC 32.9 g/dL (31.0-37.0); MCV 89.6 fL (80.0-100.0); MEAN PLATELET VOLUME 8.7 fL (7.4-10.4); MONOCYTES 9.7 % (2-11); NEUTROPHILS 65.7 % (40-80); PLATELET COUNT 351 10x3/uL (130-400); RBC 3.09 10x6/uL (4.00-5.40); RDW 14.8 % (11.5-14.5); WBC 8.7 10x3/uL (4.8-10.8)
[2019-05-01 06:22] LABS: ALBUMIN 2.4 g/dL (3.4-5.0); BILIRUBIN - TOTAL 0.24 mg/dL (0.2-1.3); CALCIUM 8.3 mg/dL (8.5-10.1); CARBON DIOXIDE 27.5 mmol/L (21.0-32.0); MAGNESIUM - SERUM 2.1 mg/dL (1.8-2.4); POTASSIUM - SERUM 4.5 mmol/L (3.5-5.1); PROTEIN - SERUM 6.4 g/dL (6.4-8.2)
--- NOTE | 2019-05-01 07:40 | OP ---
PATIENT NAME: NICHOLAS GARG MEDICAL RECORD: [id number] :[birth year] LOCATION:D.[facility] ADMISSION DATE:04/29/19 SURGEON: BASILIO NIETO DO DATE OF OPERATION: 04/30/2019 PROCEDURE PERFORMED: Right hip irrigation and debridement with wound VAC application. PREOPERATIVE DIAGNOSIS: Right hip wound dehiscence. POSTOPERATIVE DIAGNOSIS: Right hip wound dehiscence. INDICATIONS: Ms. 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 She started draining out of the wound excessively a week following her surgery. She was I&D'd and cultured, and on the broth, grew out Staph. She has been treated with vancomycin and rifampin. She was sent to a group home facility and the wound dehisced. She had a Prevena on it, which continued to pull excessive fluid out due to her malnutrition. She is on antibiotics and continues to drain. The wound dehiscence is right under the fold. They were [facility] the jail. She was seen in my clinic yesterday and directly admitted. She had a wound measured in the OR of 4 cm x 10 cm x 4 cm in depth. This was obviously large and she would not heal due to her excessive drainage and malnutrition; therefore, I decided to wash it out again with Bactisure and normal saline, and wound VAC it. She was aware of the risks including continued infection, bleeding, need for long-term use of wound VAC in order to get it closed, and have the wound heal by secondary intent. She signed the consent. SURGEON: Basilio Nieto DO DESCRIPTION OF PROCEDURE: The patient was taken to the operative suite, laid in the supine position, sedated, and intubated. The right hip was then prepped and draped in a sterile fashion. Time-out was performed and everyone was in agreement with correct site, side, patient, and procedure. The hip wound was then incised. There was a small skin bridge holding it together over the larger portion that had dehisced. This wound was then measured to be 10 cm x 4 cm at the biggest part x 4 cm deep. Bactisure one liter bag was used to irrigate it and curettes were used to debride the wound to get bleeding edges. Three liters of normal saline was then used after that and the skin edges were freshened up with a #10 blade scalpel, getting bleeding edges. I then used #1 nylon in a Donati-type retention suture, closing a majority of the wound. A 10-cm full thick sponge x approximately 2 cm was then stuffed into the wound and left it out of the remaining part that was open. It was approximately 3 cm x 4 cm in depth x 4 cm in length. I left it sticking out. Cavilon was then used around the wound and a sheet of plastic was put over that. A hole was cut in that and then a T-type smaller piece of silver wound VAC sponge was put over that and then the suction pad was put on top of that after hole was cut. When that had been secured in place with the wound VAC, I sealed it. This held good suction as confirmed on wound VAC and then the dressing was taken down. The patient was awakened and taken to recovery in stable condition. BLOOD LOSS: Approximately 50 mL. COMPLICATIONS: None. OPERATIVE REPORT [id number] NICHOLAS GARG TRANSINT:[id number] Voice Confirmation ID: [id number] DOCUMENT ID: [id number] BASILIO NIETO DO at 0740 CC: [id number] DICTATION DATE: 04/30/19 1421 ELECTRICAL WIRER: 04/30/19 1506 ADM IN [facility] [address] [place] [address]
[2019-05-01 08:38] VITALS: BP 129/66
[2019-05-01] MEDS ORDERED: OXYCODONE HCL10 MG PO (10:36)
[2019-05-01 11:58] VITALS: BP 97/40
--- NOTE | 2019-05-01 12:09 | MORECARE ---
CASE MANAGEMENT DISCHARGE SUMMARY PATIENT: NICHOLAS GARG UNIT: [id number] ADM DATE: 04/29/19 AGE: 54 : [birth year] SEX: F ROOM/BED: D.220 AUTHOR: JASMYN MALIN PHYSICIAN: REFERRING PHYSICIAN: BASILIO NIETO DO DATE OF SERVICE: 05/01/19 Discharge Plan Patient Name: NICHOLAS GARG Facility: [facility]:[place] : 1965 Planned Disposition: Correction Facility Anticipated Discharge Date: Discharge Date: Expected LOS: Initial Reviewer: [id number] Initial Review Date: 04/29/2019 Generated: 05/01/19 1:08 pm Comments DCP- Discharge Planning Updated by [email or web address]: Tiffany Edmondson on 05/01/19 11:[address] SENT CLINICALS TO [facility] TO START THE PROCESS TO GET AUTH External Providers External Provider: [facility] Next Contact Date: Service Request Date: Service Type: Resolution: Reviewer: Comments: Patient Name: NICHOLAS GARG Page 81360 at 1209 All edits/amendments must be made on the electronic document DICTATION DATE: 05/01/191207 HEALTH ADVISOR: HEATHER 05/01/19 1208 RPT#: [id number] DC DATE: STATUS: ADM IN [place] [address] [place] [address] END OF REPORT
[2019-05-01 16:34] VITALS: BP 137/67
[2019-05-01 20:00] VITALS: BP 113/62
[2019-05-02] VITALS: BP 100/68
[2019-05-02 04:00] VITALS: BP 121/53
[2019-05-02 06:37] LABS: BASOPHILS 0.1 % (0-2); EOSINOPHILS 2.3 % (0-7); HEMATOCRIT 26.7 % (36.0-48.0); HEMOGLOBIN 8.9 g/dL (12-16); IMMATURE GRANULOCYTES 0.1 % (0-5); LYMPHOCYTES 19.7 % (15-50); MCH 29.8 pg (26.0-34.0); MCHC 33.3 g/dL (31.0-37.0); MCV 89.3 fL (80.0-100.0); MEAN PLATELET VOLUME 8.7 fL (7.4-10.4); MONOCYTES 12.2 % (2-11); NEUTROPHILS 65.6 % (40-80); PLATELET COUNT 329 10x3/uL (130-400); RBC 2.99 10x6/uL (4.00-5.40); RDW 14.8 % (11.5-14.5); WBC 7.9 10x3/uL (4.8-10.8)
[2019-05-02 06:51] LABS: ALBUMIN 2.5 g/dL (3.4-5.0); ALKALINE PHOSPHATASE 81 U/L (46-116); ALT (SGPT) 11 U/L (10-68); BILIRUBIN - TOTAL 0.23 mg/dL (0.2-1.3); CALC OSMOLALITY 276 mosm/kg (275-300); CALCIUM 8.2 mg/dL (8.5-10.1); CARBON DIOXIDE 27.1 mmol/L (21.0-32.0); CHLORIDE - SERUM 102 mmol/L (98-107); CREATININE - SERUM 0.8 mg/dL (0.6-1.3); GLUCOSE 102 mg/dL (74-106); MAGNESIUM - SERUM 2.2 mg/dL (1.8-2.4); POTASSIUM - SERUM 4.4 mmol/L (3.5-5.1); PROTEIN - SERUM 5.9 g/dL (6.4-8.2); SODIUM 138 mmol/L (136-145); UREA NITROGEN 15 mg/dL (7-18); eGFR NON AFRICAN AMERICAN 78 mL/min (90-120)
[2019-05-02 08:44] VITALS: BP 116/65
--- NOTE | 2019-05-02 13:28 | MORECARE ---
CASE MANAGEMENT DISCHARGE SUMMARY PATIENT: NICHOLAS GARG UNIT: [id number] ADM DATE: 04/29/19 AGE: 54 : 61 SEX: F ROOM/BED: D.220 AUTHOR: JASMYN MALIN PHYSICIAN: REFERRING PHYSICIAN: BASILIO NIETO DO DATE OF SERVICE: 05/02/19 Discharge Plan Patient Name: NICHOLAS GARG Facility: [facility]:[place] : 1965 Planned Disposition: Long-Term Facility Anticipated Discharge Date: Discharge Date: Expected LOS: Initial Reviewer: [id number] Initial Review Date: 04/29/2019 Generated: 05/02/19 2:28 pm Comments DCP- Discharge Planning Updated by [email or web address]: Tiffany Edmondson on 05/02/19 12:[address] CALLED [facility] TO TRY TO GET THE PATIENT'S AUTH EXPEDITED SPOKE WITH LEONOR HE STATED THAT IT WAS BEING REVIEW, BUT IT WAS JUST SENT IN TODAY. CM WILL CONTINUE TO HELP WITH DC PLANNING DCP- Discharge Planning Updated by [email or web address]: Tiffany Edmondson on 05/01/19 11:[address] SENT CLINICALS TO [facility] IN [facility] TO START THE PROCESS TO GET AUTH Last DP export: 05/01/19 11:09 a Patient Name: NICHOLAS GARG Page 69668 at 1328 All edits/amendments must be made on the electronic document DICTATION DATE: 05/02/19 1328 PRINTER'S DEVIL: HEATHER 05/02/19 1328 RPT#: [id number] DC DATE: STATUS: ADM IN [facility] [address] [place] [address] END OF REPORT
[2019-05-02 13:32] VITALS: BP 125/56
[2019-05-02 17:25] VITALS: BP 135/71
[2019-05-02 20:00] VITALS: BP 115/66
[2019-05-03 00:40] VITALS: BP 118/55
[2019-05-03 04:50] VITALS: BP 111/61
[2019-05-03 05:25] LABS: BASOPHILS 0.1 % (0-2); EOSINOPHILS 3.2 % (0-7); HEMATOCRIT 25.1 % (36.0-48.0); HEMOGLOBIN 8.2 g/dL (12-16); IMMATURE GRANULOCYTES 0.1 % (0-5); LYMPHOCYTES 24.2 % (15-50); MCH 29.2 pg (26.0-34.0); MCHC 32.7 g/dL (31.0-37.0); MCV 89.3 fL (80.0-100.0); MEAN PLATELET VOLUME 8.9 fL (7.4-10.4); MONOCYTES 11.2 % (2-11); NEUTROPHILS 61.2 % (40-80); PLATELET COUNT 303 10x3/uL (130-400); RBC 2.81 10x6/uL (4.00-5.40); RDW 14.5 % (11.5-14.5); WBC 7.1 10x3/uL (4.8-10.8)
[2019-05-03 05:53] LABS: ALBUMIN 2.1 g/dL (3.4-5.0); ALKALINE PHOSPHATASE 74 U/L (46-116); BILIRUBIN - TOTAL 0.23 mg/dL (0.2-1.3); CALC OSMOLALITY 275 mosm/kg (275-300); CALCIUM 8.2 mg/dL (8.5-10.1); CARBON DIOXIDE 29.3 mmol/L (21.0-32.0); CHLORIDE - SERUM 102 mmol/L (98-107); CREATININE - SERUM 0.8 mg/dL (0.6-1.3); GLUCOSE 106 mg/dL (74-106); PROTEIN - SERUM 6.1 g/dL (6.4-8.2); SODIUM 137 mmol/L (136-145); UREA NITROGEN 17 mg/dL (7-18); eGFR NON AFRICAN AMERICAN 78 mL/min (90-120)
[2019-05-03 05:55] LABS: ALT (SGPT) 15 U/L (10-68)
[2019-05-03 08:59] VITALS: BP 130/64
[2019-05-03 14:37] VITALS: BP 118/73
[2019-05-03 16:49] VITALS: BP 129/77
[2019-05-03 19:50] VITALS: BP 141/71
[2019-05-04] VITALS: BP 100/70
[2019-05-04 04:00] VITALS: BP 117/64
[2019-05-04 06:27] LABS: BASOPHILS 0.1 % (0-2); EOSINOPHILS 2.6 % (0-7); HEMATOCRIT 25.4 % (36.0-48.0); HEMOGLOBIN 8.3 g/dL (12-16); IMMATURE GRANULOCYTES 0.1 % (0-5); LYMPHOCYTES 22.6 % (15-50); MCH 28.9 pg (26.0-34.0); MCHC 32.7 g/dL (31.0-37.0); MCV 88.5 fL (80.0-100.0); MONOCYTES 12.8 % (2-11); NEUTROPHILS 61.8 % (40-80); PLATELET COUNT 302 10x3/uL (130-400); RBC 2.87 10x6/uL (4.00-5.40); RDW 14.3 % (11.5-14.5); WBC 7.3 10x3/uL (4.8-10.8)
[2019-05-04 06:52] LABS: ALBUMIN 2.3 g/dL (3.4-5.0); ALKALINE PHOSPHATASE 72 U/L (46-116); CALC OSMOLALITY 274 mosm/kg (275-300); CALCIUM 8.3 mg/dL (8.5-10.1); CARBON DIOXIDE 29.9 mmol/L (21.0-32.0); CHLORIDE - SERUM 101 mmol/L (98-107); CREATININE - SERUM 0.8 mg/dL (0.6-1.3); GLUCOSE 89 mg/dL (74-106); POTASSIUM - SERUM 4.2 mmol/L (3.5-5.1); PROTEIN - SERUM 6.4 g/dL (6.4-8.2); SODIUM 137 mmol/L (136-145); UREA NITROGEN 18 mg/dL (7-18); eGFR NON AFRICAN AMERICAN 78 mL/min (90-120)
[2019-05-04 06:53] LABS: ALT (SGPT) 10 U/L (10-68)
[2019-05-04 07:14] VITALS: BP 123/51
[2019-05-04 12:43] VITALS: BP 103/70
[2019-05-04 18:26] VITALS: BP 128/63
[2019-05-04 20:00] VITALS: BP 115/67
[2019-05-05] VITALS: BP 100/51
[2019-05-05 04:00] VITALS: BP 102/59
[2019-05-05 06:17] LABS: BASOPHILS 0.2 % (0-2); EOSINOPHILS 4.3 % (0-7); HEMATOCRIT 24.6 % (36.0-48.0); HEMOGLOBIN 8.3 g/dL (12-16); IMMATURE GRANULOCYTES 0.2 % (0-5); LYMPHOCYTES 28.7 % (15-50); MCH 29.7 pg (26.0-34.0); MCHC 33.7 g/dL (31.0-37.0); MCV 88.2 fL (80.0-100.0); MEAN PLATELET VOLUME 8.8 fL (7.4-10.4); MONOCYTES 13.7 % (2-11); NEUTROPHILS 52.9 % (40-80); PLATELET COUNT 308 10x3/uL (130-400); RBC 2.79 10x6/uL (4.00-5.40); WBC 6.2 10x3/uL (4.8-10.8)
[2019-05-05 06:39] LABS: ALBUMIN 2.1 g/dL (3.4-5.0); ALKALINE PHOSPHATASE 66 U/L (46-116); ALT (SGPT) 8 U/L (10-68); BILIRUBIN - TOTAL 0.19 mg/dL (0.2-1.3); CALC OSMOLALITY 277 mosm/kg (275-300); CALCIUM 8.4 mg/dL (8.5-10.1); CARBON DIOXIDE 29.3 mmol/L (21.0-32.0); CHLORIDE - SERUM 103 mmol/L (98-107); CREATININE - SERUM 0.8 mg/dL (0.6-1.3); GLUCOSE 89 mg/dL (74-106); MAGNESIUM - SERUM 1.9 mg/dL (1.8-2.4); POTASSIUM - SERUM 4.4 mmol/L (3.5-5.1); SODIUM 138 mmol/L (136-145); UREA NITROGEN 20 mg/dL (7-18); eGFR NON AFRICAN AMERICAN 78 mL/min (90-120)
[2019-05-05 08:46] VITALS: BP 114/56
--- NOTE | 2019-05-05 12:18 | MORECARE ---
CASE MANAGEMENT DISCHARGE SUMMARY PATIENT: NICHOLAS GARG UNIT: [id number] ADM DATE: 04/29/19 AGE: 54 : 61 SEX: F ROOM/BED: D.2205 AUTHOR: JASMYN MALIN PHYSICIAN: REFERRING PHYSICIAN: BASILIO NIETO DO DATE OF SERVICE: 05/05/19 Discharge Plan Patient Name: NICHOLAS GARG Facility: [facility] : 1965 Planned Disposition: Assisted Facility Anticipated Discharge Date: Discharge Date: Expected LOS: Initial Reviewer: [id number] Initial Review Date: 04/29/2019 Generated: 05/05/19 1:17 pm Comments DCP- Discharge Planning Updated by [email or web address]: Tiffany Edmondson on 05/05/19 11:[address] Patient is being discharged to [facility]. She will be going to a skilled bed. IMM served and given. Kika will call report. They will transport patient. CM to follow and assist with DC planning DCP- Discharge Planning Updated by [email or web address]: Tiffany Edmondson on 05/02/19 12:[address] CALLED [facility] TO TRY TO GET THE PATIENT'S AUTH EXPEDITED SPOKE WITH LEONOR HE STATED THAT IT WAS BEING REVIEW, BUT IT WAS JUST SENT IN TODAY. CM WILL CONTINUE TO HELP WITH DC PLANNING DCP- Discharge Planning Updated by [id number]: Tiffany Edmondson on 05/01/19 11:[address] SENT CLINICALS TO [facility] IN [facility] TO START THE PROCESS TO GET AUTH Coverage Notice Reviewer: [id number] - Tiffany Edmondson Notice Issued Date-Time: 05/05/2019 11:30 Notice Type: IM Discharge Notice Notice Delivered To: Patient Relationship to Patient: Shake Loader Name: Delivery Method: HAND - Hand Delivered Karli Days: Prior Verbal Notification: Recipient Understood Notice: Yes Recipient Signature: Yes Med Rec Note Co-signed by Attending: Coverage Notice Comment: Last DP export: 05/02/19 12:28 p Patient Name: NICHOLAS GARG Page 12410 at 1218 All edits/amendments must be made on the electronic document DICTATION DATE: 05/05/191216 INSTRUCTIONAL INTERVENTIONIST: HEATHER 05/05/191216 RPT#: [id number] DC DATE: STATUS: ADM IN [facility] [address] [place] [address] END OF REPORT
--- NOTE | 2019-05-05 13:17 | MORECARE ---
CASE MANAGEMENT DISCHARGE SUMMARY PATIENT: NICHOLAS GARG UNIT: [id number] ADM DATE: 04/29/19 AGE: 54 : 61 SEX: F ROOM/BED: D.2205 AUTHOR: JASMYN MALIN PHYSICIAN: REFERRING PHYSICIAN: BASILIO NIETO DO DATE OF SERVICE: 05/05/19 Discharge Plan Patient Name: NICHOLAS GARG Facility: [facility]:[place] : 1965 Planned Disposition: Custodial Facility Anticipated Discharge Date: Discharge Date: 05/05/2019 Expected LOS: 0 Initial Reviewer: [email or web address] Initial Review Date: 04/29/2019 Generated: 05/05/19 2:16 pm Comments DCP- Discharge Planning Updated by [email or web address]: Tiffany Edmondson on 05/05/19 11:[address] Patient is being discharged to [facility]. She will be going to a skilled bed. IMM served and given. Kika will call report. They will transport patient. CM to follow and assist with DC planning DCP- Discharge Planning Updated by [email or web address]: Tiffany Edmondson on 05/02/19 12:[address] CALL[address] [facility] TO TRY TO GET THE PATIENT'S AUTH EXPEDITED SPOKE WITH LEONOR HE STATED THAT IT WAS BEING REVIEW, BUT IT WAS JUST SENT IN TODAY. CM WILL CONTINUE TO HELP WITH DC PLANNING DCP- Discharge Planning Updated by [email or web address]: Tiffany Edmondson on 05/01/19 11:[address] SENT CLINICALS TO [facility] IN [facility] TO START THE PROCESS TO GET AUTH Coverage Notice Reviewer: [id number] - Tiffany Edmondson Notice Issued Date-Time: 05/05/2019 11:30 Notice Type: IM Discharge Notice Notice Delivered To: Patient Relationship to Patient: Vice President Of Contracts Name: Delivery Method: HAND - Hand Delivered Karli Days: Prior Verbal Notification: Recipient Understood Notice: Yes Recipient Signature: Yes Med Rec Note Co-signed by Attending: Coverage Notice Comment: Last DP export: 05/05/19 11:18 a Patient Name: NICHOLAS GARG Page 04895 at 1317 All edits/amendments must be made on the electronic document DICTATION DATE: 05/05/196 TOOL ROOM LATHE OPERATOR: HEATHER 05/05/19 1316 RPT#: [id number] DC DATE:05/05/19 STATUS: DIS IN [facility] [address] [facility] [place] [address] END OF REPORT
[2019-06-05] MEDS ORDERED: HYDROCODONE-A1 UDTA2 PO (10:01)
[2019-06-05] MEDS ORDERED: XANAX0.5 MG PO (10:02)
[2019-06-05] MEDS ORDERED: K-DUR20 MEQ PO (10:09)
== END 2019-05-05 12:15 | DRG 857 ==
LOC: D.MS 13:00 → D.SDCHOLD 13:00 → D.MS 13:19
PROVIDERS: Family Medicine; ADMIT Orthopaedic Surgery; ATTEND Orthopaedic Surgery
PROC: 0K9Q0ZZ Drainage of Right Upper Leg Muscle, Open Approach (ICD-10-PCS; 2019-04-30)
PROC: 0KDN0ZZ Extraction of Right Hip Muscle, Open Approach (ICD-10-PCS; principal; 2019-04-30 10:45)
DX: T81.41XA Infection following a procedure, superficial incisional surgical site, initial encounter (principal); T81.30XA Disruption of wound, unspecified, initial encounter; Z68.43 Body mass index [BMI] 50.0-59.9, adult; L08.9 Local infection of the skin and subcutaneous tissue, unspecified; E66.01 Morbid (severe) obesity due to excess calories; M54.9 Dorsalgia, unspecified; F41.9 Anxiety disorder, unspecified; F31.9 Bipolar disorder, unspecified; F43.10 Post-traumatic stress disorder, unspecified

== ENCOUNTER 2019-06-06 06:30 | Day surgery (SDC) | payer MEDICARE, MEDICAID ==
[~2019-06-06] VITALS: Ht 167.6 cm; Wt 154.2 kg
[~2019-06-06 06:30] MED LIST changes: +HYDROCODONE-A1 UDTA2 PO; +K-DUR20 MEQ PO; +OXYCODONE HCL10 MG PO; +XANAX0.5 MG PO
[2019-06-06 07:40] VITALS: BP 139/67; Ht 167.6 cm; Wt 154.2 kg
[2019-06-06 08:19] LABS: HEMATOCRIT 33.8 % (36.0-48.0); HEMOGLOBIN 10.8 g/dL (12-16); MCV 90.9 fL (80.0-100.0); RBC 3.72 10x6/uL (4.00-5.40); RDW 15.1 % (11.5-14.5); WBC 9.4 10x3/uL (4.8-10.8)
[2019-06-06 08:28] LABS: ANION GAP 14.5 mmol/L (8-16); CALCIUM 9.1 mg/dL (8.5-10.1); CARBON DIOXIDE 27.3 mmol/L (21.0-32.0); POTASSIUM - SERUM 4.8 mmol/L (3.5-5.1)
--- NOTE | 2019-06-06 09:38 | NUR ---
PATIENT BROUGHT WOUND VAC AND SUPPLIES FROM HOME
[2019-06-06] MEDS ORDERED: OXYCODONE HCL5 M1 PO (09:44)
[2019-06-06] MEDS ORDERED: SHOWER CHAIR (09:45)
--- NOTE | 2019-06-06 11:46 | NUR ---
DR. BRIGGS NOTIFIED AND REVIEWED PT'S BEHAVIOR AND ASSESSMENT RESULTS. PT IS A LOW RISK PER DR. BRIGGS. DR. BRIGGS STATED TO GIVE RESOURCES TO PT AT THE TIME OF DISCHARGE. NO FURTHER ORDERS AT THIS TIME. RESOURCES REVIEWED WITH PT AND SHE VERBALIZIED UNDERSTANDING.
--- NOTE | 2019-06-06 15:29 | OP ---
PATIENT NAME: NICHOLAS GARG MEDICAL RECORD: [id number] :61 LOCATION:D.OPS ADMISSION DATE: SURGEON: BASILIO NIETO DO DATE OF OPERATION: 06/06/2019 PROCEDURE PERFORMED: Right hip wound I&D with Stravix and wound VAC application. PREOPERATIVE DIAGNOSIS: Right hip wound dehiscence. POSTOPERATIVE DIAGNOSIS: Right hip wound dehiscence. INDICATIONS: Ms. Garg is a 54-year-old female, who underwent right total hip sometime ago. Due to her BMI and other medical problems, her hip wound did not heal well and it dehisced as her pannus was directly over the incision. This dehisced. She had several I&Ds and wound VAC applied for approximately 6 weeks and the wound would shrink, but it did not close. Therefore, we chose to do Stravix application to get the skin to heal the rest of way. She has been on IV antibiotics as well to prevent any infection, she did have positive cultures on a broth, which grew out 6 weeks ago, just to avoid any complications. She was informed of the risks of this including need for further surgery, infection, bleeding, damage to nerves and vessels, continued pain, and she signed the consent. SURGEON: Basilio Nieto DO DESCRIPTION OF PROCEDURE: The patient was taken to the operative suite, laid in supine position, given general anesthetic, given 3 grams of Ancef preoperatively. She was then sedated and LMA was placed. The right hip was then prepped and draped in sterile fashion. Time-out was performed. Everyone was in agreement with correct side, site, patient and procedure. We then took a 15 blade scalpel and freshened up the edges of the wound and then once we got bleeding edges and curette was used, the site was irrigated with 3 liters of normal saline. The Stravix graft was then put in and sutured in with a 4-0 Monocryl over the entire opening. This was a 4 cm x 5 cm by approximately a centimeter in depth and then she had a small opening just distal, to which was a small piece of Strattice was placed in and sutured in with a 4-0 Monocryl. The Adaptic was then put on top of that and a wound VAC sponge, and the wound VAC was applied to help good suction. The patient was then awakened and taken to recovery in stable condition. BLOOD LOSS: Minimal. COMPLICATIONS: None. TRANSINT:[id number] Voice Confirmation ID: [id number] DOCUMENT ID: [id number] OPERATIVE REPORT [id number] NICHOLAS GARG MICHAEL D, DO at 1529 CC: [id number] DICTATION DATE: 06/06/1948 WORD PROCESSING SUPERVISOR: 06/06/[address] [facility] 06/06/[address] [address]
== END 2019-06-06 12:00 | disposition home or self-care (01) ==
LOC: D.OPS 06:30 → D.PAN 09:00 → D.OPS 09:00 → D.PAN 09:35 → D.OPS 11:00 → D.PAN 11:00 → D.OPS 12:00
PROVIDERS: Anesthesiology; ATTEND Orthopaedic Surgery
DX: T81.30XA Disruption of wound, unspecified, initial encounter (principal); Y83.9 Surgical procedure, unspecified as the cause of abnormal reaction of the patient, or of later complication, without mention of misadventure at the time of the procedure

== ENCOUNTER → 2019-07-03 13:07 | Outpatient (CLI) | payer MEDICARE, MEDICAID ==
[2019-06-06 07:40] VITALS: BMI 55.0
[~2019-07-03 13:07] MED LIST changes: +LEVAQUIN750 MG PO; +MAXIPIME 2 GM/D52 G1 IV; +SHOWER CHAIR; +VANCOMYCIN H1 G/VIA1 IV
[2019-07-03 13:21] LABS: BASOPHILS 0.1 % (0-2); EOSINOPHILS 2.9 % (0-7); HEMATOCRIT 34.6 % (36.0-48.0); HEMOGLOBIN 11.4 g/dL (12-16); IMMATURE GRANULOCYTES 0.1 % (0-5); LYMPHOCYTES 27.1 % (15-50); MCH 29.2 pg (26.0-34.0); MCHC 32.9 g/dL (31.0-37.0); MCV 88.5 fL (80.0-100.0); MEAN PLATELET VOLUME 9.1 fL (7.4-10.4); MONOCYTES 6.9 % (2-11); NEUTROPHILS 62.9 % (40-80); PLATELET COUNT 388 10x3/uL (130-400); RBC 3.91 10x6/uL (4.00-5.40); RDW 14.1 % (11.5-14.5); WBC 7.3 10x3/uL (4.8-10.8)
[2019-07-03 15:20] LABS: ERYTHROCYTE SEDIMENTATION RATE 88 mm/hr (0-30)
== END | disposition home or self-care (01) ==
LOC: D.LABREF 13:07
PROVIDERS: ATTEND Nurse Practitioner Family
DX: S71.001D Unspecified open wound, right hip, subsequent encounter (principal); M16.9 Osteoarthritis of hip, unspecified

== ENCOUNTER 2019-07-07 15:35 | Inpatient (IN) | payer MEDICARE, MEDICAID ==
[~2019-07-07] VITALS: Ht 167.6 cm; Wt 128.4 kg
[~2019-07-07 15:35] MED LIST changes: -LEVAQUIN750 MG PO; -MAXIPIME 2 GM/D52 G1 IV; -VANCOMYCIN H1 G/VIA1 IV
[2019-07-09] VITALS (12 sets, daily range): BP systolic 107–135; BP diastolic 59–97; BMI 45.7
[2019-07-09 10:27] LABS: BASOPHILS 0.1 % (0-2); EOSINOPHILS 3.3 % (0-7); HEMATOCRIT 36.5 % (36.0-48.0); HEMOGLOBIN 11.9 g/dL (12-16); IMMATURE GRANULOCYTES 0.3 % (0-5); LYMPHOCYTES 22.5 % (15-50); MCH 28.8 pg (26.0-34.0); MCHC 32.6 g/dL (31.0-37.0); MCV 88.4 fL (80.0-100.0); MEAN PLATELET VOLUME 8.5 fL (7.4-10.4); MONOCYTES 9.8 % (2-11); PLATELET COUNT 404 10x3/uL (130-400); RBC 4.13 10x6/uL (4.00-5.40); RDW 14.1 % (11.5-14.5)
[2019-07-09 10:31] LABS: CALC OSMOLALITY 272 mosm/kg (275-300); CALCIUM 8.9 mg/dL (8.5-10.1); CARBON DIOXIDE 28.7 mmol/L (21.0-32.0); CHLORIDE - SERUM 100 mmol/L (98-107); CREATININE - SERUM 0.7 mg/dL (0.6-1.3); GLUCOSE 99 mg/dL (74-106); POTASSIUM - SERUM 4.5 mmol/L (3.5-5.1); SODIUM 136 mmol/L (136-145); UREA NITROGEN 15 mg/dL (7-18); eGFR NON AFRICAN AMERICAN > 90 mL/min (90-120)
[2019-07-09 10:44] LABS: APTT 29.7 SECONDS (22.8-39.4); INR 1.04 (0.85-1.17); PROTIME 13.1 SECONDS (11.6-15.0)
[2019-07-09 10:45] LABS: APPEARANCE HAZY (CLEAR); BACTERIA FEW /hpf (NEGATIVE); BILIRUBIN NEGATIVE (NEGATIVE); COLOR YELLOW (YELLOW); EPITHELIAL CELLS OCC /hpf (0-5); GLUCOSE NEGATIVE (NEGATIVE); KETONE SMALL mg/dL (NEGATIVE); NITRITE NEGATIVE (NEGATIVE); PROTEIN NEGATIVE (NEGATIVE); RED CELLS - URINE NONE SEEN /hpf (0-5); SPECIFIC GRAVITY 1.015 (1.005-1.020); UROBILINOGEN NORMAL (NORMAL); WHITE CELLS - URINE 0-5 /hpf (NEGATIVE)
[2019-07-09 10:46] LABS: MUCUS <1+ /lpf (NONE SEEN)
[2019-07-09] MEDS ORDERED: LYRICA50 MG PO (11:06)
--- NOTE | 2019-07-09 13:58 | NUR ---
PT CLEANSED FROM RIGHT HIP TO TOES WITH HIBILEANSE AND ALCOHOL THEN PREPPED STERILELY BY RN IN STERILE GOWN AND GLOVES WITH BETADINE SCRUB AND PAINT. TRAFFIC KEPT TO MINIMUM IN ROOM PLASMA BLADE SET TO 6/8 REM PAD PLACED ON RIGHT FLANK LOT #: [id number] EXT : 02/13/2021
--- NOTE | 2019-07-09 20:57 | NUR ---
PT ARRIVED ON BED FROM RECOVERY. PT MOANING WITH PAIN. PT WITH RIGHT IJ AND RIGHT HAND IV. DUVOL TO RIGHT LATERAL SIDE. WOUND VAC TO RIGHT LATERAL SIDE. DRESSING TO ANTERIOR RIGHT UPPER THIGH CLEAN DRY INTACT. PRN PAIN MEDICATIONS GIVEN WITH PT RESTING WITH EYES CLOSED AND CHEST RISING AT THIS TIME. ORDERED FLUIDS STARTED AND 1 UNIT OF FFP STARTED. VSS. WILL CONTINUE TO OBSERVE.
--- NOTE | 2019-07-09 22:30 | NUR ---
DIAZ CATH INSERTED PER POLICY BY FEMALE NURSE WITH ASSIST BY THIS NURSE. PT TOLERATED WELL, IMMEDIATE URINE RETURN NOTED. SAMPLE SENT TO LAB FOR UA.
[2019-07-09 22:52] LABS: APPEARANCE CLEAR (CLEAR); BILIRUBIN NEGATIVE (NEGATIVE); COLOR YELLOW (YELLOW); GLUCOSE NEGATIVE (NEGATIVE); KETONE NEGATIVE (NEGATIVE); NITRITE POSITIVE (NEGATIVE); PROTEIN TRACE mg/dL (NEGATIVE); RED CELLS - URINE 0-5 /hpf (0-5); SPECIFIC GRAVITY 1.025 (1.005-1.020); UROBILINOGEN NORMAL (NORMAL)
[2019-07-09 22:53] LABS: BACTERIA MANY /hpf (NEGATIVE)
--- NOTE | 2019-07-09 23:52 | NUR ---
PT RECEIVED PRN PAIN MEDICATON PER MAR FOR PAIN. PT COMPLETE FFP AND PLATLETS. NO ADVERSE REACTIONS NOTED. PT ABLE TO DRINK WATER AT THIS TIME WITH OUT DIFFICULTY OR NAUSEA. WILL CONTINUE TO OBSERVE.
[2019-07-10] VITALS (24 sets, daily range): BP systolic 90–155; BP diastolic 59–98; Ht 167.6 cm; Wt 128.4 kg
--- NOTE | 2019-07-10 03:46 | NUR ---
PT COMPLAINS OF PAIN WITH PRN PAIN MEDICATION GIVEN PER NOV. WATER GIVEN PT. PT WITHOUT COMPLAINTS OF NAUSEA. INCENTIVE SPIROMETER GIVEN AND 1250 TO 1500. NO OTHER NEEDS MADE KNOWN. CALL LIGHT IN REACH. WILL CONTINUE TO OBSERVE.
--- NOTE | 2019-07-10 05:04 | NUR ---
PT ASKING FOR WATER. TOLD PT THAT SHE NEEDED TO WAIT ALITTLE WHILE BEFORE DRINKING ANY THING ELSE, WHEN SHE SUDDENLY BECAME NAUSEATED AND VOMITED WATER APPROXIMATELY 100ML. PRN ISABELLA GIVEN PER NOV. WILL CONTINUE TO OBSERVE.
[2019-07-10 05:45] LABS: HEMATOCRIT 33.2 % (36.0-48.0); MCH 29.3 pg (26.0-34.0); MCHC 33.1 g/dL (31.0-37.0); MCV 88.3 fL (80.0-100.0); MEAN PLATELET VOLUME 8.8 fL (7.4-10.4); RBC 3.76 10x6/uL (4.00-5.40); RDW 14.9 % (11.5-14.5)
--- NOTE | 2019-07-10 05:46 | NUR ---
DR NIETO CALLED AND ORDERED VANC 1.25MG Q 12H AND DOSED BY PHARMACY. ORDERS ENTERED INTO Black coin.
[2019-07-10 05:49] LABS: WBC 10.6 10x3/uL (4.8-10.8)
--- NOTE | 2019-07-10 07:00 | NUR ---
BEDSIDE REPORT RECEIVED. ASSESSMENT COMPLETED PER FLOWSHEET, SEE FLOWSHEET FOR INFORMATION. PT RESTING IN BED WITH EYES CLOSED. NO NEEDS OR DISTRESS NOTED AT THIS TIME. VSS. WILL CONT TO MONITOR.
--- NOTE | 2019-07-10 07:39 | OP ---
PATIENT NAME: NICHOLAS GARG MEDICAL RECORD: [id number] :61 LOCATION:D.[facility] D.2301 ADMISSION DATE:07/09/19 SURGEON: JHONY NIETO DO DATE OF OPERATION: 07/09/2019 PROCEDURE PERFORMED: Revision right total hip with explant of the implants and implantation of an antibiotic spacer. PREOPERATIVE DIAGNOSES: 1. Infected right total hip arthroplasty. 2. Right hip infection. 3. 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 POSTOPERATIVE DIAGNOSES: 1. Infected right total hip arthroplasty. 2. Right hip infection. 3. 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 4. Periprosthetic fracture. INDICATIONS: Ms. Garg is a 54-year-old female who underwent a right total hip approximately 3 months ago for a disintegrated right femoral head, unknown cause, probable AVN that has been done and then she was washed out and I did a single stage exchange of the femoral stem approximately 2 weeks after and then she continued to have a dehisced wound and it was irrigated and debrided several times with a wound VAC placed on and Stravix graft placed on it and finally closed up to a point where she had granulation tissue over the wound and did not go deep. However, on the x-rays, she had severe heterotopic ossification and the picture of an infection. Labs were drawn. She had elevated ESR and CRP. She had been on IV PICC line prior to this and oral antibiotics and she had continued pain. She was informed that she is probably infected and that she needed to have this taken out. She did not ambulate anyways and she did not ambulate prior to this, did not put weight on her right leg prior to having the first total hip. I informed her that we probably pull everything out, put an antibiotic spacer and possibly be her definitive care due to her morbid obesity is low, could be very difficult. The patient was aware of the risks including continued infection, bleeding, need for blood products, damage to nerves and vessels, need for further surgery, blood clots, and even and need for long-term antibiotics. She is aware of that and signed the consent. SURGEON: Jhony Nieto DO ROAD FREIGHT FIRER: August Gonzalez MD The second surgeon was needed in order to deal with the size of the patient and the heterotopic ossification making this a difficult case. DESCRIPTION OF PROCEDURE: The patient was taken to the operative suite, laid in supine position, given 1.5 grams of vancomycin prior to starting. She was then placed in the left lateral decubitus position with the right hip up. The right hip was then prepped with Betadine and draped in sterile fashion. A timeout was performed. Everyone was in agreeance with correct side, site, patient and procedure. Then, using the anterolateral approach to the hip, an incision was made after area had been covered in Ioban on the skin. Careful dissection was made down to the IT band. The IT band was split and then the abductors and hip were removed off the greater trochanter. Then, encountered severe heterotopic OPERATIVE REPORT [id number] NICHOLAS GARG ossification and ended up doing a trochanteric osteotomy and prior to doing this when rotating the femur, we sustained a periprosthetic fracture. The tip of the stem and in the osteotomy, we removed the femoral head and then the cup liner was attempted to be removed. While in the process of doing that, I loosened the cup, was probably loose due to the infection. The cup was then somewhat difficultly removed with the screws intact. At that time, the wound was thoroughly irrigated with 6 liters of normal saline and then reamed the canal of the femur through the fracture site and the osteotomy up to an 11.5, we decided to put an 11-mm cement spacer and Prostalac, it is 200 mm stem. We then passed cables around the fracture and around the femur and the osteotomy site and the head with a 48 with a +6 neck. This was placed into the left of the acetabulum and then the stem was put into the femur, marked the rotation, getting in properly in line with the femur, then the cable was affixed distally and proximally and fixed the upper part of the trochanteric osteotomy with a #5 suture Ethibond. Vancomycin powder was then placed in the wound. The vastus lateralis was then closed with #2 Ethibond as well as the IT band, #2 Ethibond in unkeyt-pz-lobil fashion. The adipose tissue was approximated with #2 Ethibond as well and then the skin was closed with 2-0 Vicryl in an inverted interrupted fashion with frances and placed on the skin and the Prevena was then placed, over that Prevena plus a drain was placed prior to closure of the skin and the patient was given 4 units of packed red cells and 1 unit of FFP and 1 unit of platelets. The central line was placed prior to leaving the OR. She was then taken to the recovery room in stable condition. Blood loss approximately 2.5 liters. COMPLICATIONS: Periprosthetic femur fracture. TRANSINT:[id number] Voice Confirmation ID: [id number] DOCUMENT ID: [id number] JHONY NIETO DO at 0739 CC: [id number] DICTATION DATE: 07/09/19 1843 LEAD MINER: 07/10/19 0139 ADM IN [facility] [address] [place] [address]
--- NOTE | 2019-07-10 08:00 | NUR ---
AT BEDSIDE. NEW ORDERS RECEIVED. WILL CONT TO MONITOR.
--- NOTE | 2019-07-10 09:00 | NUR ---
PT C/O OF PAIN, PAIN MEDICATIONS GIVEN PER ORDERS. VSS. WILL CONT TO MONITOR.
--- NOTE | 2019-07-10 10:31 | NUR ---
PT IN A-FIB HR 143, PT CONVERTING IN AND OUT OF A-FIB. EKG OBTAINED. AT BEDSIDE. NEW ORDERS RECEIVED. WILL CONT TO MONITOR.
--- NOTE | 2019-07-10 11:00 | NUR ---
PT ON BED WATCHING TV. PT C/O "I'M JUST NOT FEELING GOOD" CHARGE NURSE MIKKI NOTIFIED. WILL CONT TO MONITOR.
--- NOTE | 2019-07-10 12:00 | NUR ---
TRANSFERED PT TO CVICU. WILL CONT TO MONITOR.
--- NOTE | 2019-07-10 13:00 | NUR ---
PT RESTING IN BED WITH EYES CLOSED. NO NEEDS OR DISTRESS NOTED AT THIS TIME. VSS. WILL CONT TO MONITOR.
--- NOTE | 2019-07-10 13:22 | NUR ---
CALL LIGHT ANSWERED. PT REPORTS PAIN 10/10 BURNING ON RIGHT HIP. DILAUDID 1MG GIVEN PER ORDERS. AFTER PAIN MED WAS GIVEN PT REPORTED NAUSEA. ZOFRAN GIVEN PER ORDERS. NO OTHER NEEDS AT THIS TIME.
--- NOTE | 2019-07-10 15:00 | NUR ---
REASSESSMENT COMPLETED PER FLOWSHEET, PT C/O "MY PHONE NOT WORKING IS MAKING MY CHEST HURT". ASKED PT IF SHE WANTED HELP FIXING HER PHONE AND PT DECLINED. VSS. WILL CONT TO MONITOR.
--- NOTE | 2019-07-10 17:00 | NUR ---
PT IN BED RESTING WITH EYES CLOSED. NO NEEDS OR DISTRESS NOTED AT THIS TIME. VSS. WILL CONT TO MONITOR.
--- NOTE | 2019-07-10 19:00 | NUR ---
SHIFT ASSESSMENT COMPLETE. PT IS A&O X4 AND STATES THAT SHE IS HAVING 9/10 R HIP PAIN. REPOSITIONED FOR COMFORT, REVIEWED EMAR WITH HER AND INFORMED HER OF WHAT/WHEN SHE COULD HAVE ANOTHER PAIN MED. SHE STATED THAT SHE UNDERSTANDS. RR SHALLOW, 2L/MIN VIA NC, CLEAR LUNG SOUNDS HEARD BILAT THROUGHOUT ALL LOBES. S1S2 AUDIBLE, HR 92 NSR SHOWING ON MONITOR. RADIAL PULSES PALP. R IJ CVL INFUSING 1/2 NS @ 50 ML/HR AND CARDIZEM @ 5 MG/HR (5 ML/HR). R HIP NGUYỄN DRAIN NOTED, BLOODY DRAINAGE, COMPRESSED. R HIP WOUND VAC, 125 MMHG SUCTION, NO AIR LEAK DETECTED. DIAZ CATH INTACT DRAINING YELLOW URINE. PEDAL PULSES PALP. CALL LIGHT IN REACH, REFRESHMENTS BROUGHT TO BEDSIDE. NO FURTHER NEEDS AT THIS TIME. WILL CONT TO MONITOR CLOSELY.
--- NOTE | 2019-07-10 20:00 | NUR ---
PT'S TEMP 102.[address] NIETO, NEW ORDERS RECIEVED.
--- NOTE | 2019-07-10 20:30 | NUR ---
IS USE X10, GOOD EFFORT, 1000 ML INSPIRED. EXPLAINED THE IMPORTANCE OF THE EXERCISE. PT STATES THAT SHE UNDERSTANDS. WILL CONT WITH POC.
--- NOTE | 2019-07-10 21:00 | NUR ---
PM MEDS GIVEN AND PRN PAIN TUBE STATION ATTENDANT. REFRESHMENTS BROUGHT TO BEDSIDE. VSS. CALL LIGHT IN REACH. NO FURTHER NEEDS AT THIS TIME. WILL CONT TO MONITOR.
--- NOTE | 2019-07-10 23:00 | NUR ---
REASSESSMENT COMPLETE. PT'S TEMP IS COMING DOWN. NGUYỄN DRAIN COMPRESSED, WOUND VAC INTACT, NO AIR LEAK DETECTED. NSR SHOWING ON MONITOR. PAIN IS UNDER CONTROL AT THIS TIME. NO FURTHER CHANGES IN PT CONDITION. SEE FLOWSHEET FOR FURTHER DETAILS. WILL CONT WITH POC.
--- NOTE | 2019-07-10 23:42 | NUR ---
IS USE X10, 1000 ML PULLED, GOOD EFFORT. PARTIAL LINEN CHANGE PROVIDED. FAN PLACED IN ROOM. WILL CONT WITH POC.
[2019-07-11] VITALS (16 sets, daily range): BP systolic 82–138; BP diastolic 43–72
--- NOTE | 2019-07-11 01:00 | NUR ---
PT RESTING WITH NO SIGNS OF ACUTE DISTRESS NOTED. VSS. CALL LIGHT IN REACH, WILL CONT TO MONITOR.
--- NOTE | 2019-07-11 03:00 | NUR ---
REASSESSMENT COMPLETE. IS USE X10, 1000 ML PULLED, GOOD EFFORT. NO CHANGES IN PT CONDITION. SEE FLOWSHEET FOR FURTHER DETAILS. VSS. CALL LIGHT IN REACH, BED IN LOWEST POSITION. WILL CONT WITH POC.
--- NOTE | 2019-07-11 05:00 | NUR ---
CHG BATH PROVIDED. TRIED TO PROVIDE COMPLETE LINEN CHANGE, BUT PATIENT REFUSED D/T HIP PAIN. REPOSITIONED FOR COMFORT. VSS. NO SIGNS OF ACUTE DISTRESS NOTED. CALL LIGHT IN REACH, WILL CONT WITH POC.
[2019-07-11 06:09] LABS: BASOPHILS 0.1 % (0-2); EOSINOPHILS 0.9 % (0-7); IMMATURE GRANULOCYTES 0.4 % (0-5); LYMPHOCYTES 20.4 % (15-50); MCH 28.9 pg (26.0-34.0); MCHC 32.8 g/dL (31.0-37.0); MEAN PLATELET VOLUME 8.6 fL (7.4-10.4); MONOCYTES 15.1 % (2-11); NEUTROPHILS 63.1 % (40-80); RBC 3.01 10x6/uL (4.00-5.40); RDW 14.3 % (11.5-14.5); WBC 10.5 10x3/uL (4.8-10.8)
[2019-07-11 06:10] LABS: HEMATOCRIT 26.5 % (36.0-48.0); HEMOGLOBIN 8.7 g/dL (12-16); PLATELET COUNT 213 10x3/uL (130-400)
[2019-07-11 06:32] LABS: ALBUMIN 2.2 g/dL (3.4-5.0); ANION GAP 11.5 mmol/L (8-16); BILIRUBIN - TOTAL 0.67 mg/dL (0.2-1.3); CALCIUM 7.7 mg/dL (8.5-10.1); CARBON DIOXIDE 24.6 mmol/L (21.0-32.0); POTASSIUM - SERUM 5.1 mmol/L (3.5-5.1); PROTEIN - SERUM 6.2 g/dL (6.4-8.2)
[2019-07-11 06:33] LABS: CREATININE - SERUM 0.9 mg/dL (0.6-1.3)
--- NOTE | 2019-07-11 07:55 | NUR ---
MEAL TRAU SERVED. PT EATS W/O DIFFICULTY.
--- NOTE | 2019-07-11 09:50 | NUR ---
DR NIETO HERE ON ROUNDS. HEMOVAC DRAIN DCD. RTO DR LUNA. REC'D NEW ORDERS. EPORTED LOW SODIUM
--- NOTE | 2019-07-11 09:56 | NUR ---
SPOKE TO WOUND CARE NURSE RE: NEW ORDER.
--- NOTE | 2019-07-11 12:16 | NUR ---
PT C/O PAIN TO RT HIP. PO PAIN MED GIVEN. LUNCH TRAY SERVED. PT EATING WITH OUT PROBLEMS.
--- NOTE | 2019-07-11 14:27 | NUR ---
Pt has a prevena plus dressing on right hip incision that is intact and functioning properly. She also has a chronic open wound on her right groin measuring 2cm x 2cm. She states she's had it for several weeks. It was cleaned and a 2x2 moistened with saline applied. It was then covered with dry 4x4s and secured with medipore tape. The wound bed is red with granulating tissue. There is no odor. Wound care will monitor.
--- NOTE | 2019-07-11 15:14 | NUR ---
WOUND CARE NURSE HERE AND SHE CHANGED RT HIP DSNG X 2.
--- NOTE | 2019-07-11 19:15 | NUR ---
PATIENT ALERT AND ORIENTED WHEN ENTERING THE ROOM. PATIENT WEARING 2 L PRN. RIGHT INTERNAL JUGULAR IS INFUSING NS @ 50. PATIENT HAS PROVENA WOUND VAC TO THE RIGHT HIP. INCISION IS CLEAN AND DRY WITH SUCTION ACTIVATED AND WORKING CORRECTLY. PATIENT HAS DIAZ CATHETER PATENT WITH DARK URINE DRAIAING. PEDAL PULSES NOTED. PATIENT WIGGLES TOES ON COMMAND. TOES WARM TO TOUCH. DENIES FURTHER NEEDS AT THIS TIME. CALL LIGHT IN REACH. CPOC.
--- NOTE | 2019-07-11 21:17 | NUR ---
ADMINISTERED CARDIZEM AFTER CHECKING PULSE. 82
[2019-07-12] VITALS (9 sets, daily range): BP systolic 89–123; BP diastolic 50–69
--- NOTE | 2019-07-12 01:55 | NUR ---
I have reviewed this patient and I concur with the Shift Assessment completed by the Licensed Practical Nurse today this shift.
[2019-07-12 06:12] LABS: BASOPHILS 0.1 % (0-2); EOSINOPHILS 2.1 % (0-7); HEMATOCRIT 20.5 % (36.0-48.0); IMMATURE GRANULOCYTES 0.5 % (0-5); LYMPHOCYTES 17.1 % (15-50); MCH 29.7 pg (26.0-34.0); MCHC 33.7 g/dL (31.0-37.0); MCV 88.4 fL (80.0-100.0); MEAN PLATELET VOLUME 8.7 fL (7.4-10.4); MONOCYTES 13.4 % (2-11); NEUTROPHILS 66.8 % (40-80); PLATELET COUNT 223 10x3/uL (130-400); RDW 13.9 % (11.5-14.5); WBC 9.2 10x3/uL (4.8-10.8)
[2019-07-12 06:16] LABS: RBC 2.32 10x6/uL (4.00-5.40)
[2019-07-12 06:18] LABS: HEMOGLOBIN 6.9 g/dL (12-16)
--- NOTE | 2019-07-12 06:36 | NUR ---
DR. NIETO ON FLOOR. DISCUSSED CRITICAL HEMOGLOBIN. ORDERS TO TRANSFUSE 2 UNITS PRBC. CALL TO LAB. DISCUSSED BLOOD BANK BOARD. 6 UNITS WERE ORDERED DURING SURGERY, ONLY 4 WERE TRANSFUSED BUT NO UNITS ARE READY AND AVAILABLE AT THIS TIME. PAUL STATED SHE WOULD PREP AND GET BLOOD READY SOON POSSIBLE. SHE STATED SHE WOULD CALL WHEN READY.
[2019-07-12 06:40] LABS: ALKALINE PHOSPHATASE 73 U/L (46-116); BILIRUBIN - TOTAL 0.22 mg/dL (0.2-1.3); CALC OSMOLALITY 263 mosm/kg (275-300); CALCIUM 7.9 mg/dL (8.5-10.1); CARBON DIOXIDE 23.8 mmol/L (21.0-32.0); CHLORIDE - SERUM 97 mmol/L (98-107); CREATININE - SERUM 0.7 mg/dL (0.6-1.3); GLUCOSE 109 mg/dL (74-106); POTASSIUM - SERUM 4.6 mmol/L (3.5-5.1); SODIUM 129 mmol/L (136-145); UREA NITROGEN 24 mg/dL (7-18); eGFR NON AFRICAN AMERICAN > 90 mL/min (90-120)
[2019-07-12 06:43] LABS: ALT (SGPT) 13 U/L (10-68)
--- NOTE | 2019-07-12 07:28 | NUR ---
REC'D PT LYING IN BED RESP EVEN AND UNLABORED LUNG SOUNDS CLEAR HEART RATE REGULAR NO EDEMA NOTED TO BLE. ABD SOFT AND NONTENDER. PPPX4. AOX4 BED AT LOWEST SETTING WITH BRAKES WEBLOGIC DEVELOPER LIGHT WITHIN REACH. WILL CONTINUE TO MONITOR
[2019-07-12 23:32] LABS: HEMATOCRIT 25.2 % (36.0-48.0); HEMOGLOBIN 8.3 g/dL (12-16)
[2019-07-13] VITALS: BP 100/46
[2019-07-13 04:00] VITALS: BP 118/68
[2019-07-13 06:33] LABS: BASOPHILS 0.1 % (0-2); EOSINOPHILS 2.6 % (0-7); HEMATOCRIT 24.8 % (36.0-48.0); HEMOGLOBIN 8.1 g/dL (12-16); IMMATURE GRANULOCYTES 1.1 % (0-5); LYMPHOCYTES 18.6 % (15-50); MCH 29.2 pg (26.0-34.0); MCHC 32.7 g/dL (31.0-37.0); MCV 89.5 fL (80.0-100.0); MEAN PLATELET VOLUME 8.8 fL (7.4-10.4); MONOCYTES 13.9 % (2-11); NEUTROPHILS 63.7 % (40-80); PLATELET COUNT 262 10x3/uL (130-400); RBC 2.77 10x6/uL (4.00-5.40); WBC 8.5 10x3/uL (4.8-10.8)
[2019-07-13 07:03] LABS: ALBUMIN 1.9 g/dL (3.4-5.0); ALKALINE PHOSPHATASE 66 U/L (46-116); ALT (SGPT) 13 U/L (10-68); BILIRUBIN - TOTAL 0.31 mg/dL (0.2-1.3); CALC OSMOLALITY 262 mosm/kg (275-300); CALCIUM 7.7 mg/dL (8.5-10.1); CARBON DIOXIDE 26.6 mmol/L (21.0-32.0); CHLORIDE - SERUM 98 mmol/L (98-107); CREATININE - SERUM 0.8 mg/dL (0.6-1.3); GLUCOSE 91 mg/dL (74-106); POTASSIUM - SERUM 4.4 mmol/L (3.5-5.1); PROTEIN - SERUM 5.9 g/dL (6.4-8.2); SODIUM 130 mmol/L (136-145); UREA NITROGEN 18 mg/dL (7-18); eGFR NON AFRICAN AMERICAN 78 mL/min (90-120)
[2019-07-13 08:09] VITALS: BP 112/60
--- NOTE | 2019-07-13 10:32 | MORECARE ---
CASE MANAGEMENT DISCHARGE SUMMARY PATIENT: NICHOLAS GARG UNIT: [id number] ADM DATE: 07/09/19 AGE: 54 : 61 SEX: F ROOM/BED: D.2217 AUTHOR: JASMYN MALIN PHYSICIAN: REFERRING PHYSICIAN: BASILIO NIETO DO DATE OF SERVICE: 07/13/19 Discharge Plan Patient Name: NICHOLAS GARG Facility: [facility] : 1965 Planned Disposition: Long-Term Facility Anticipated Discharge Date: Discharge Date: Expected LOS: Initial Reviewer: [email or web address] Initial Review Date: 07/13/2019 Generated: 07/13/19 11:32 am DCPIA - Discharge Planning Initial Assessment Updated by [email or web address]: Crystal Sanders on 07/13/19 10:31 am * Is the patient Alert and Oriented? Yes * PCP BRIAN IN [place] * Pharmacy [facility] * Preadmission Environment Home with Family * ADLs Independent * Equipment None * List name and contact numbers for known caregivers / representatives who currently or will assist patient after discharge: RICARDO GARG, IMTIAZ, * Community resources currently utilized Home Health * Please name any agencies selected above. [facility] * Additional services required to return to the preadmission environment? Yes * Can the patient safely return to the preadmission environment? Yes * Has this patient been hospitalized within the prior 30 days at any hospital? Yes Coverage Notice Reviewer: [email or web address] - Crystal Sanders Notice Issued Date-Time: 07/13/2019 10:27 Notice Type: Patient Choice Letter Notice Delivered To: Patient Relationship to Patient: Stockroom Supervisor Name: Delivery Method: HAND - Hand Delivered Karli Days: Prior Verbal Notification: Recipient Understood Notice: Yes Recipient Signature: Yes Med Rec Note Co-signed by Attending: Coverage Notice Comment: [facility] Patient Name: NICHOLAS GARG Page [phone] at 1032 All edits/amendments must be made on the electronic document DICTATION DATE: 07/13/19 1032 PARTS DEPARTMENT MANAGER: HEATHER 07/13/19 1032 RPT#: [id number] DC DATE: STATUS: ADM IN [facility] [address] [place] [address] END OF REPORT
--- NOTE | 2019-07-13 10:41 | MORECARE ---
CASE MANAGEMENT DISCHARGE SUMMARY PATIENT: NICHOLAS GARG UNIT: [id number] ADM DATE: 07/09/19 AGE: 54 : 61 SEX: F ROOM/BED: D.5291 AUTHOR: KIMO,DOC PHYSICIAN: REFERRING PHYSICIAN: BASILIO NIETO DO DATE OF SERVICE: 07/13/19 Discharge Plan Patient Name: NICHOLAS GARG Facility: [facility]:[place] : 1965 Planned Disposition: Snf Facility Anticipated Discharge Date: Discharge Date: Expected LOS: Initial Reviewer: [email or web address] Initial Review Date: 07/13/2019 Generated: 07/13/19 11:40 am Comments DCP- Discharge Planning Updated by [email or web address]: Crystal Sanders on 07/13/19 9:[address] Patient Name: NICHOLAS GARG Admission Status: Elective Accout number: [id number] Admission Date: 07-09-2019 : 1965 Admission Diagnosis: Attending: BASILIO NIETO Current LOS: 4 Anticipated DC Date: Planned Disposition: Snf Facility Primary Insurance: [facility] [employer] Discharge Planning Comments: CM met with patient at bedside after explaining CM role and obtaining verbal consent. Spoke with patient about the need for SNF, she states would like to go the the nursing facility in [facility]. Ash signed. States doesn't have equipment but may need wheel chair and oxygen. States someone came to see her at home about setting her up with equipment. CM to follow. Forest Fire Prevention Specialist: Crystal Sanders DCPIA - Discharge Planning Initial Assessment Updated by [email or web address]: Crystal Sanders on 07/13/19 10:31 am * Is the patient Alert and Oriented? Yes * PCP BRIAN IN [place] * [facility]acy [facility] * Preadmission Environment Home with Family * ADLs Independent * Equipment None * List name and contact numbers for known caregivers / representatives who currently or will assist patient after discharge: RICARDO GARG, SON, * Community resources currently utilized Home Health * Please name any agencies selected above. [facility] * Additional services required to return to the preadmission environment? Yes * Can the patient safely return to the preadmission environment? Yes * Has this patient been hospitalized within the prior 30 days at any hospital? Yes External Providers External Provider: [facility] Next Contact Date: Service Request Date: Service Type: Resolution: Reviewer: Comments: Coverage Notice Reviewer: [email or web address] Joyce Sanders Notice Issued Date-Time: 07/13/2019 10:27 Notice Type: Patient Choice Letter Notice Delivered To: Patient Relationship to Patient: Compensation Intern Name: Delivery Method: HAND - Hand Delivered Karli Days: Prior Verbal Notification: Recipient Understood Notice: Yes Recipient Signature: Yes Med Rec Note Co-signed by Attending: Coverage Notice Comment: [facility]SH FOR [facility] [place] Last DP export: 07/13/19 9:32 a Patient Name: NICHOLAS GARG Page [phone] at 1041 All edits/amendments must be made on the electronic document DICTATION DATE: 07/13/19 1040 ACTIVATED SLUDGE OPERATOR: HEATHER 07/13/19 1040 RPT#: [id number] DC DATE: STATUS: ADM IN [facility] [address] [place] [address] END OF REPORT
--- NOTE | 2019-07-13 10:50 | NUR ---
CHANGED BOTH DRESSINGS ON PT LEFT SIDE. DRESSING ON PT LEFT HIP MORE SATURATED THAN THE DRESSING ON TOP OF PT LEFT THIGH, CHANGED AND INITALED BOTH, NO OTHER NEEDS VOICED, CONTINUE WITH PLAN OF CARE
[2019-07-13 12:28] VITALS: BP 121/49
--- NOTE | 2019-07-13 15:55 | NUR ---
I have reviewed this patient and I concur with the Shift Assessment completed by the Licensed Practical Nurse today this shift.
[2019-07-13 16:54] VITALS: BP 96/53
[2019-07-13 20:47] VITALS: BP 110/60
[2019-07-14 00:58] VITALS: BP 111/72
[2019-07-14 05:55] VITALS: BP 112/66
[2019-07-14 07:00] LABS: BASOPHILS 0.2 % (0-2); EOSINOPHILS 2.8 % (0-7); HEMOGLOBIN 8.4 g/dL (12-16); IMMATURE GRANULOCYTES 5.8 % (0-5); LYMPHOCYTES 21.7 % (15-50); MCH 29.1 pg (26.0-34.0); MCHC 32.3 g/dL (31.0-37.0); MEAN PLATELET VOLUME 8.5 fL (7.4-10.4); MONOCYTES 13.1 % (2-11); NEUTROPHILS 56.4 % (40-80); RBC 2.89 10x6/uL (4.00-5.40)
[2019-07-14 07:01] LABS: PLATELET COUNT 329 10x3/uL (130-400)
[2019-07-14 07:06] LABS: ALBUMIN 1.9 g/dL (3.4-5.0); ALKALINE PHOSPHATASE 63 U/L (46-116); ALT (SGPT) 11 U/L (10-68); BILIRUBIN - TOTAL 0.29 mg/dL (0.2-1.3); CALC OSMOLALITY 267 mosm/kg (275-300); CALCIUM 8.4 mg/dL (8.5-10.1); CARBON DIOXIDE 27.2 mmol/L (21.0-32.0); CHLORIDE - SERUM 100 mmol/L (98-107); CREATININE - SERUM 0.7 mg/dL (0.6-1.3); GLUCOSE 75 mg/dL (74-106); PROTEIN - SERUM 5.8 g/dL (6.4-8.2); SODIUM 133 mmol/L (136-145); UREA NITROGEN 20 mg/dL (7-18); eGFR NON AFRICAN AMERICAN > 90 mL/min (90-120)
--- NOTE | 2019-07-14 08:10 | NUR ---
ALERT AND ORIENTED. LUNGS CLEAR BILATERALLY. HEART SOUNDS S1 AND S2 HEARD IN ALL ANDRE. BOWEL SOUNDS ACTIVE X 4. ASSISTED TO BEDPAN. LARGE BM NOTED. IV TO RIGHT IJ PATENT WITHOUT REDNESS. WOUND VAC TO RIGHT LEG PATENT DRSGS X 2 TO RIGHT HIP C/D/I. DIAZ PATENT. DENIES NEEDS. BED LOW. CALL RUSSELL AND PERSONAL ITEMS IN REACH. WILL CONTINUE TO MONITOR.
[2019-07-14 08:51] VITALS: BP 108/48
--- NOTE | 2019-07-14 10:15 | NUR ---
RESTING IN BED. DENIES NEEDS. WILL CONTINUE TO MONITOR.
[2019-07-14 12:30] VITALS: BP 105/50
--- NOTE | 2019-07-14 13:23 | NUR ---
RESTING IN BED. DENIES NEEDS. WILL CONTINUE TO MONITOR.
[2019-07-14 16:21] VITALS: BP 110/52
--- NOTE | 2019-07-14 17:00 | NUR ---
DRSGS TO RIGHT GROIN AND RIGHT HIP CHANGED PER ORDER. RIGHT IJ REMOVED WITH TIP INTACT.
--- NOTE | 2019-07-14 17:32 | NUR ---
PATIENT STATES SOMEONE TOOK PATIENT'S SILVER COLORED WATCH, GOLD COLORED CHAIN NECKLACE, GOLD COLORED RING, SILVER COLORED RING, AND ONE STUD EARRING. ALL JEWELRY EXCEPT STUD EARRING. REPORTED TO SECURITY OPERATIONS CENTER ANALYST
[2019-07-14 20:00] VITALS: BP 121/60
--- NOTE | 2019-07-14 20:00 | NUR ---
ASSESSMENT PER FLOWSHEET. IV PATENT LEFT UPPER ARM PICC LINE OF NS AT 50CC'S/HR. SITE CLEAR. DIAZ TO BEDSIDE DRAINAGE WITH YELLOW URINE. INCISION TO RT GROIN/HIP AREA WITH WOUND VAC IN PLCE C/D/I. PT ON CONTACT ISOLATION. SR UP X2 CALL LIGHT WITHIN REACH.
--- NOTE | 2019-07-14 21:15 | NUR ---
MEDS GIVEN PER MAR.
--- NOTE | 2019-07-15 00:15 | NUR ---
EYES CLOSED RESPIRATIONS WITH EASE AND UNLABORED.
--- NOTE | 2019-07-15 04:21 | NUR ---
EYES CLOSED RESPIRATIONS WITH EASE AND UNLABORED.
[2019-07-15 06:44] LABS: BASOPHILS 0.2 % (0-2); EOSINOPHILS 2.9 % (0-7); HEMATOCRIT 25.5 % (36.0-48.0); HEMOGLOBIN 8.1 g/dL (12-16); IMMATURE GRANULOCYTES 7.4 % (0-5); LYMPHOCYTES 14.4 % (15-50); MCH 28.9 pg (26.0-34.0); MCHC 31.8 g/dL (31.0-37.0); MCV 91.1 fL (80.0-100.0); MEAN PLATELET VOLUME 8.4 fL (7.4-10.4); MONOCYTES 16.2 % (2-11); NEUTROPHILS 58.9 % (40-80); PLATELET COUNT 355 10x3/uL (130-400); RDW 13.8 % (11.5-14.5); WBC 10.9 10x3/uL (4.8-10.8)
[2019-07-15 07:05] LABS: ALBUMIN 1.8 g/dL (3.4-5.0); ALKALINE PHOSPHATASE 69 U/L (46-116); ALT (SGPT) 13 U/L (10-68); CALC OSMOLALITY 271 mosm/kg (275-300); CALCIUM 7.6 mg/dL (8.5-10.1); CARBON DIOXIDE 28.7 mmol/L (21.0-32.0); CHLORIDE - SERUM 101 mmol/L (98-107); CREATININE - SERUM 0.8 mg/dL (0.6-1.3); GLUCOSE 93 mg/dL (74-106); POTASSIUM - SERUM 4.8 mmol/L (3.5-5.1); PROTEIN - SERUM 5.1 g/dL (6.4-8.2); SODIUM 135 mmol/L (136-145); UREA NITROGEN 18 mg/dL (7-18); eGFR NON AFRICAN AMERICAN 78 mL/min (90-120)
--- NOTE | 2019-07-15 07:38 | NUR ---
ALERT AND ORIENTED. LUNGS CLEAR BILATERALLY IN ALL ANDRE. HEART SOUNDS S1 AND S2 HEARD IN ALL ANDRE. BOWEL SOUNDS ACTIVE X 4. INCISION TO RIGHT HIP/THIGH WITH WOUND VAC IN PLACE. INCISION X 2 TO RIGHT GROIN AND POSTERIOR HIP COVERED WITH GAUZE C/D/I. SKIN OTHERWISE INTACT WITHOUT REDNESS. CHRISTOPHER PICC PATENT WITHOUT REDNESS. DENIES NEEDS. BED LOW. CALL RUSSELL AND PERSONAL ITEMS IN REACH. WILL CONTINUE TO MONITOR.
--- NOTE | 2019-07-15 09:07 | MORECARE ---
CASE MANAGEMENT DISCHARGE SUMMARY PATIENT: NICHOLAS GARG UNIT: [id number] ADM DATE: 07/09/19 AGE: 54 : 61 SEX: F ROOM/BED: D.8313 AUTHOR: KIMO,JASMYN PHYSICIAN: REFERRING PHYSICIAN: BASILIO NIETO DO DATE OF SERVICE: 07/15/19 Discharge Plan Patient Name: NICHOLAS GARG Facility: [facility]:[place] : 1965 Planned Disposition: Mcfp Facility Anticipated Discharge Date: Discharge Date: Expected LOS: Initial Reviewer: [id number] Initial Review Date: 07/13/2019 Generated: 07/15/19 10:06 am Comments DCP- Discharge Planning Updated by [email or web address]: Crystal Sanders on 07/13/19 9:[address] Patient Name: NICHOLAS GARG Admission Status: Elective Accout number: [id number] Admission Date: 07-09-2019 : 1965 Admission Diagnosis: Attending: BASILIO NIETO Current LOS: 4 Anticipated DC Date: Planned Disposition: Mcfp Facility Primary Insurance: [facility] MEDICARE SOLUTIONS Discharge Planning Comments: CM met with patient at bedside after explaining CM role and obtaining verbal consent. Spoke with patient about the need for SNF, she states would like to go the the nursing facility in [facility]. Ash signed. States doesn't have equipment but may need wheel chair and oxygen. States someone came to see her at home about setting her up with equipment. CM to follow. Specialist Field Engineer: Crystal Sanders DCPIA - Discharge Planning Initial Assessment Updated by [id number]: Crystal Sanders on 07/13/19 10:31 am * Is the patient Alert and Oriented? Yes * PCP [facility] IN [place] * [facility]acy [facility] * Preadmission Environment Home with Family * ADLs Independent * Equipment None * List name and contact numbers for known caregivers / representatives who currently or will assist patient after discharge: RICARDO GARG, SON, * Community resources currently utilized Home Health * Please name any agencies selected above. [facility] * Additional services required to return to the preadmission environment? Yes * Can the patient safely return to the preadmission environment? Yes * Has this patient been hospitalized within the prior 30 days at any hospital? Yes External Providers External Provider: [facility] Next Contact Date: Service Request Date: Service Type: Resolution: Reviewer: Comments: Coverage Notice Reviewer: [id number] Joyce Sanders Notice Issued Date-Time: 07/13/2019 10:27 Notice Type: Patient Choice Letter Notice Delivered To: Patient Relationship to Patient: Chicken Cleaner Name: Delivery Method: HAND - Hand Delivered Karli Days: Prior Verbal Notification: Recipient Understood Notice: Yes Recipient Signature: Yes Med Rec Note Co-signed by Attending: Coverage Notice Comment: [facility] FOR [facility] [place] Last DP export: 07/13/19 9:41 a Patient Name: NICHOLAS GARG Page [id number] at 0907 All edits/amendments must be made on the electronic document DICTATION DATE: 07/15/19905 MANAGER BUDGET: HEATHER 07/15/19905 RPT#: [id number] DC DATE: STATUS: ADM IN [facility] [address] [place] [address] END OF REPORT
--- NOTE | 2019-07-15 09:45 | MORECARE ---
CASE MANAGEMENT DISCHARGE SUMMARY PATIENT: NICHOLAS GARG UNIT: [id number] ADM DATE: 07/09/19 AGE: 54 : 61 SEX: F ROOM/BED: D.2212 AUTHOR: KIMO,DOC PHYSICIAN: REFERRING PHYSICIAN: BASILIO NIETO DO DATE OF SERVICE: 07/15/19 Discharge Plan Patient Name: NICHOLAS GARG Facility: [facility]:[place] : 1965 Planned Disposition: Fdc Facility Anticipated Discharge Date: Discharge Date: Expected LOS: Initial Reviewer: [id number] Initial Review Date: 07/13/2019 Generated: 07/15/19 10:44 am Comments DCP- Discharge Planning Updated by [email or web address]: Tiffany Edmondson on 07/15/19 8:[address] SPOKE WITH JULITO AT [facility] AND SHE HAS NOT RECEIVED THE REFERRAL, I WILL FAX AGAIN TO START THE AUTH PROCESS DCP- Discharge Planning Updated by [id number]: Crystal Sanders on 07/13/19 9:[address] Patient Name: NICHOLAS GARG Admission Status: Elective Accout number: [id number] Admission Date: 07-09-2019 : 1965 Admission Diagnosis: Attending: BASILIO NIETO Current LOS: 4 Anticipated DC Date: Planned Disposition: Fdc Facility Primary Insurance: [employer] MEDICARE SOLUTIONS Discharge Planning Comments: CM met with patient at bedside after explaining CM role and obtaining verbal consent. Spoke with patient about the need for SNF, she states would like to go the the nursing facility in [facility]. Ash signed. States doesn't have equipment but may need wheel chair and oxygen. States someone came to see her at home about setting her up with equipment. CM to follow. Data Entry Supervisor: Crystal Sanders DCPIA - Discharge Planning Initial Assessment Updated by [email or web address]: Crystal Sanders on 07/13/19 10:31 am * Is the patient Alert and Oriented? Yes * PCP [facility] IN [place] * [facility] * Preadmission Environment Home with Family * ADLs Independent * Equipment None * List name and contact numbers for known caregivers / representatives who currently or will assist patient after discharge: RICARDO GARG, IMTIAZ, * Community resources currently utilized Home Health * Please name any agencies selected above. [facility] * Additional services required to return to the preadmission environment? Yes * Can the patient safely return to the preadmission environment? Yes * Has this patient been hospitalized within the prior 30 days at any hospital? Yes Coverage Notice Reviewer: [id number] Joyce Sanders Notice Issued Date-Time: 07/13/2019 10:27 Notice Type: Patient Choice Letter Notice Delivered To: Patient Relationship to Patient: Care Specialist Name: Delivery Method: HAND - Hand Delivered Karli Days: Prior Verbal Notification: Recipient Understood Notice: Yes Recipient Signature: Yes Med Rec Note Co-signed by Attending: Coverage Notice Comment: [facility] FOR [facility] export: 07/15/19 8:07 a Patient Name: NICHOLAS GARG Page [id number] at 0945 All edits/amendments must be made on the electronic document DICTATION DATE: 07/15/19943 DEPUTY FIRE CHIEF: HEATHER 07/15/19943 RPT#: [id number] DC DATE: STATUS: ADM IN [facility] [address] [place] [address] END OF REPORT
--- NOTE | 2019-07-15 10:15 | NUR ---
PRN VISTARIL GIVEN PER REQUEST. SCHEDULED LASIX HELD. BP 110/60. PATIENT REQUESTING TO GET IMMODIUM AND HOLD SENNOSIDES TONIGHT. WILL TALK TO DR NIETO. DENIES FURTHER NEEDS. WILL CONTINUE TO MONITOR.
--- NOTE | 2019-07-15 15:33 | MORECARE ---
CASE MANAGEMENT DISCHARGE SUMMARY PATIENT: NICHOLAS GARG UNIT: [id number] ADM DATE: 07/09/19 AGE: 54 : 61 SEX: F ROOM/BED: D.2217 AUTHOR: KIMO,DOC PHYSICIAN: REFERRING PHYSICIAN: BASILIO NIETO DO DATE OF SERVICE: 07/15/19 Discharge Plan Patient Name: NICHOLAS GARG Facility: [facility]:[place] : 1965 Planned Disposition: Half-Way Facility Anticipated Discharge Date: Discharge Date: Expected LOS: Initial Reviewer: [id number] Initial Review Date: 07/13/2019 Generated: 07/15/19 4:33 pm Comments DCP- Discharge Planning Updated by [email or web address]: Tiffany Edmondson on 07/15/19 2:[address] JILL ([facility]) CALLED AND STATED THAT [facility] DOES NOT HAVE AN ISOLATION ROOM. SHE WAS GOING TO COME UP HERE AND SPEAK WITH THE PATIENT ABOUT GOING TO A DIFFERENT FACILITY THAT IS ABOUT [address]ES FROM [facility]. SHE STATED THAT SHE WILL BE UP HERE LATER TODAY TO SPEAK WITH PATIENT. CM TO FOLLOW AND ASSIST NEEDED DCP- Discharge Planning Updated by [email or web address]: Tiffany Edmondson on 07/15/19 8:[address] SPOKE WITH JULITO AT [facility] AND SHE HAS NOT RECEIVED THE REFERRAL, I WILL FAX AGAIN TO START THE AUTH PROCESS DCP- Discharge Planning Updated by [email or web address]: Crystal Sanders on 07/13/19 9:[address] Patient Name: NICHOLAS GARG Admission Status: Elective Accout number: [id number] Admission Date: 07-09-2019 : 1965 Admission Diagnosis: Attending: BASILIO NIETO Current LOS: 4 Anticipated DC Date: Planned Disposition: Half-Way Facility Primary Insurance: [facility] MEDICARE SOLUTIONS Discharge Planning Comments: CM met with patient at bedside after explaining CM role and obtaining verbal consent. Spoke with patient about the need for SNF, she states would like to go the the nursing facility in [facility]. Ash signed. States doesn't have equipment but may need wheel chair and oxygen. States someone came to see her at home about setting her up with equipment. CM to follow. Elevator Installer Apprentice: Crystalphani Sanders DCPIA - Discharge Planning Initial Assessment Updated by [email or web address]: Crystalphani Sanders on 07/13/19 10:31 am * Is the patient Alert and Oriented? Yes * PCP [facility] IN [place] * [facility] * Preadmission Environment Home with Family * ADLs Independent * Equipment None * List name and contact numbers for known caregivers / representatives who currently or will assist patient after discharge: RICARDO GARG, SON, * Community resources currently utilized Home Health * Please name any agencies selected above. [facility] * Additional services required to return to the preadmission environment? Yes * Can the patient safely return to the preadmission environment? Yes * Has this patient been hospitalized within the prior 30 days at any hospital? Yes Coverage Notice Reviewer: [id number] - Crystal Sanders Notice Issued Date-Time: 07/13/2019 10:27 Notice Type: Patient Choice Letter Notice Delivered To: Patient Relationship to Patient: Registered Phlebotomist Part Time Name: Delivery Method: HAND - Hand Delivered Karli Days: Prior Verbal Notification: Recipient Understood Notice: Yes Recipient Signature: Yes Med Rec Note Co-signed by Attending: Coverage Notice Comment: [facility] FOR [facility] export: 07/15/19 8:44 a Patient Name: NICHOLAS GARG Page [id number] at 1533 All edits/amendments must be made on the electronic document DICTATION DATE: 07/15/191532 AUTOMOTIVE ELECTRICIAN HELPER: HEATHER 07/15/191532 RPT#: [id number] DC DATE: STATUS: ADM IN [facility] [address] [place] [address] END OF REPORT
--- NOTE | 2019-07-15 16:42 | NUR ---
OT NOTE: PT COMPLETED BED MOB TASKS WITH MAX A X3. PT COMPLETED SUPINE TO SIT WITH MAX A X3. PT REQUIRED MAX A FOR LB HYGIENE TASKS. THANK YOU, GUSTAVO CORONA
--- NOTE | 2019-07-15 17:07 | NUR ---
DIAZ CLAMPED TO OBTAIN UA
[2019-07-15 17:14] VITALS: BP 106/56
[2019-07-15 18:07] LABS: APPEARANCE CLEAR (CLEAR); BILIRUBIN NEGATIVE (NEGATIVE); COLOR YELLOW (YELLOW); GLUCOSE NEGATIVE (NEGATIVE); KETONE NEGATIVE (NEGATIVE); NITRITE NEGATIVE (NEGATIVE); PROTEIN NEGATIVE (NEGATIVE); SPECIFIC GRAVITY 1.015 (1.005-1.020); UROBILINOGEN NORMAL (NORMAL)
[2019-07-15 18:08] LABS: BACTERIA MODERATE /hpf (NEGATIVE); RED CELLS - URINE OCC /hpf (0-5)
--- NOTE | 2019-07-15 18:23 | NUR ---
RESTING IN BED. DENIES NEEDS. BED LOW. CALL RUSSELL AND PERSONAL ITEMS IN REACH.
[2019-07-15 20:24] VITALS: BP 120/70
--- NOTE | 2019-07-15 21:50 | NUR ---
C/O PAIN LEG INCISION. OXY IR 10MG PO GIVEN FOR PAIN CONTROL.
--- NOTE | 2019-07-16 | NUR ---
EYES CLOSED RESPIRATIONS WITH EASE AND UNLABORED.
[2019-07-16 01:07] VITALS: BP 109/60
--- NOTE | 2019-07-16 03:03 | NUR ---
EYES CLOSED RESPIRATIONS WITH EASE AND UNLABORED.
[2019-07-16 05:09] VITALS: BP 117/66
[2019-07-16 06:14] LABS: BASOPHILS 0.2 % (0-2); EOSINOPHILS 2.6 % (0-7); IMMATURE GRANULOCYTES 10.1 % (0-5); LYMPHOCYTES 16.1 % (15-50); MCH 29.1 pg (26.0-34.0); MCHC 31.8 g/dL (31.0-37.0); MCV 91.5 fL (80.0-100.0); MEAN PLATELET VOLUME 8.4 fL (7.4-10.4); MONOCYTES 16.1 % (2-11); NEUTROPHILS 54.9 % (40-80); PLATELET COUNT 307 10x3/uL (130-400); WBC 8.2 10x3/uL (4.8-10.8)
[2019-07-16 06:36] LABS: HEMATOCRIT 33.3 % (36.0-48.0); HEMOGLOBIN 10.6 g/dL (12-16); RBC 3.64 10x6/uL (4.00-5.40)
[2019-07-16 06:46] LABS: ALBUMIN 1.8 g/dL (3.4-5.0); ALKALINE PHOSPHATASE 67 U/L (46-116); BILIRUBIN - TOTAL 0.22 mg/dL (0.2-1.3); CALCIUM 7.9 mg/dL (8.5-10.1); CARBON DIOXIDE 29.9 mmol/L (21.0-32.0); CHLORIDE - SERUM 102 mmol/L (98-107); CREATININE - SERUM 0.7 mg/dL (0.6-1.3); GLUCOSE 90 mg/dL (74-106); POTASSIUM - SERUM 4.8 mmol/L (3.5-5.1); SODIUM 136 mmol/L (136-145); eGFR NON AFRICAN AMERICAN > 90 mL/min (90-120)
[2019-07-16 06:47] LABS: ALT (SGPT) 9 U/L (10-68); CALC OSMOLALITY 271 mosm/kg (275-300); UREA NITROGEN 13 mg/dL (7-18)
[2019-07-16 07:59] VITALS: BP 108/49
--- NOTE | 2019-07-16 08:09 | NUR ---
PATIENT RECIEVED RESTING IN BED WITH NO NEEDS VOICED. CL IN REACH
--- NOTE | 2019-07-16 10:38 | NUR ---
NUTRITION F/U PT REMAINS IN ISOLATION. TOLERATING REG DIET WITH 100% INTAKE RECENT MEALS. WILL CONTINUE TO HONOR FOOD PREFERENCES, MONITOR PO INTAKE. RD FOLLOWING
--- NOTE | 2019-07-16 11:59 | NUR ---
PICC DRESSING CHANGED TO LEFT UPPER ARM USING STERILE TECHNIQUE.
[2019-07-16 12:59] VITALS: BP 112/42
--- NOTE | 2019-07-16 13:29 | NUR ---
PATIENT RESTING IN BED WITH NO NEEDS VOICED, CL IN REACH
--- NOTE | 2019-07-16 13:45 | NUR ---
Prevena plus dressing removed. Incision on right hip/thigh is intact with frances. There is no redness or odor. Small amount of drainage noted on old dressing. Applied new dressing and vac restarted. Pt tolerated well.
--- NOTE | 2019-07-16 14:28 | NUR ---
THIS NURSE RECEIVED THIS PATIENT AT 1400. PATIENT REMAINS IN CONTACT ISOLATION. ALERT/ORIENT. CALL LIGHT WITHIN REACH. VOICES NO NEEDS AT THIS TIME.
--- NOTE | 2019-07-16 15:05 | MORECARE ---
CASE MANAGEMENT DISCHARGE SUMMARY PATIENT: NICHOLAS GARG UNIT: [id number] ADM DATE: 07/09/19 AGE: 54 : 61 SEX: F ROOM/BED: D.2217 AUTHOR: KIMO,DOC PHYSICIAN: REFERRING PHYSICIAN: BASILIO NIETO DO DATE OF SERVICE: 07/16/19 Discharge Plan Patient Name: NICHOLAS GARG Facility: [facility]:[place] : 1965 Planned Disposition: Snf Facility Anticipated Discharge Date: Discharge Date: Expected LOS: Initial Reviewer: [email or web address] Initial Review Date: 07/13/2019 Generated: 07/16/19 4:05 pm Comments DCP- Discharge Planning Updated by [email or web address]: Debby Cesar on 07/16/19 1:[address] JOURDAN completed and faxed on 07/16/19 @ 1500. Debby Cesar RN, [facility] DCP- Discharge Planning Updated by [email or web address]: Tiffany Edmondson on 07/15/19 2:[address] JILL ([facility]) CALLED AND STATED THAT [facility] DOES NOT HAVE AN ISOLATION ROOM. SHE WAS GOING TO COME UP HERE AND SPEAK WITH THE PATIENT ABOUT GOING TO A DIFFERENT FACILITY THAT IS ABOUT [address]ES FROM [facility]. SHE STATED THAT SHE WILL BE UP HERE LATER TODAY TO SPEAK WITH PATIENT. CM TO FOLLOW AND ASSIST NEEDED DCP- Discharge Planning Updated by [email or web address]: Tiffany Edmondson on 07/15/19 8:[address] SPOKE WITH JULITO AT [facility] AND SHE HAS NOT RECEIVED THE REFERRAL, I WILL FAX AGAIN TO START THE AUTH PROCESS DCP- Discharge Planning Updated by [id number]: Crystal Sanders on 07/13/19 9:[address] Patient Name: NICHOLAS GARG Admission Status: Elective Accout number: [id number] Admission Date: 07-09-2019 : 1965 Admission Diagnosis: Attending: BASILIO NIETO Current LOS: 4 Anticipated DC Date: Planned Disposition: Snf Facility Primary Insurance: [facility] MEDICARE SOLUTIONS Discharge Planning Comments: CM met with patient at bedside after explaining CM role and obtaining verbal consent. Spoke with patient about the need for SNF, she states would like to go the the nursing facility in [facility]. Ash signed. States doesn't have equipment but may need wheel chair and oxygen. States someone came to see her at home about setting her up with equipment. CM to follow. Urban Planning Teacher: Crystal Marilyn DCPIA - Discharge Planning Initial Assessment Updated by [email or web address]: Crystalphani Sanders on 07/13/19 10:31 am * Is the patient Alert and Oriented? Yes * PCP [facility] IN [place] * [facility]acy [facility] * Preadmission Environment Home with Family * ADLs Independent * Equipment None * List name and contact numbers for known caregivers / representatives who currently or will assist patient after discharge: RICARDO GARG, SON, * Community resources currently utilized Home Health * Please name any agencies selected above. [facility] * Additional services required to return to the preadmission environment? Yes * Can the patient safely return to the preadmission environment? Yes * Has this patient been hospitalized within the prior 30 days at any hospital? Yes Coverage Notice Reviewer: [id number] - Crystal Marilyn Notice Issued Date-Time: 07/13/2019 10:27 Notice Type: Patient Choice Letter Notice Delivered To: Patient Relationship to Patient: Construction Controller Name: Delivery Method: HAND - Hand Delivered Karli Days: Prior Verbal Notification: Recipient Understood Notice: Yes Recipient Signature: Yes Med Rec Note Co-signed by Attending: Coverage Notice Comment: [facility] export: 07/15/19 2:33 p Patient Name: NICHOLAS GARG Page [phone] at 1505 All edits/amendments must be made on the electronic document DICTATION DATE: 07/16/19 1505 GRAVITY PROSPECTING OBSERVER HELPER: HEATHER 07/16/19 1505 RPT#: [id number] DC DATE: STATUS: ADM IN [facility] [address] [place] [address] END OF REPORT
--- NOTE | 2019-07-16 15:15 | NUR ---
PRN PAIN MEDICATION GIVEN TO PATIENT FOR BACK PAIN PER PATIENT REQUEST
--- NOTE | 2019-07-16 15:15 | MORECARE ---
CASE MANAGEMENT DISCHARGE SUMMARY PATIENT: NICHOLAS GARG UNIT: [id number] ADM DATE: 07/09/19 AGE: 54 : 61 SEX: F ROOM/BED: D.2217 AUTHOR: KIMO,DOC PHYSICIAN: REFERRING PHYSICIAN: BASILIO NIETO DO DATE OF SERVICE: 07/16/19 Discharge Plan Patient Name: NICHOLAS GARG Facility: [facility]:[place] : 1965 Planned Disposition: Jail Facility Anticipated Discharge Date: Discharge Date: Expected LOS: Initial Reviewer: [email or web address] Initial Review Date: 07/13/2019 Generated: 07/16/19 4:14 pm Comments DCP- Discharge Planning Updated by [email or web address]: Debby Cesar on 07/16/19 1:[address] JOURDAN completed and faxed on 07/16/19 @ 1500. Debby Cesar RN, [facility] DCP- Discharge Planning Updated by [email or web address]: Tiffany Edmondson on 07/15/19 2:[address] JILL ([facility]) CALLED AND STATED THAT [facility] DOES NOT HAVE AN ISOLATION ROOM. SHE WAS GOING TO COME UP HERE AND SPEAK WITH THE PATIENT ABOUT GOING TO A DIFFERENT FACILITY THAT IS ABOUT [address] FROM [facility]. SHE STATED THAT SHE WILL BE UP HERE LATER TODAY TO SPEAK WITH PATIENT. CM TO FOLLOW AND ASSIST NEEDED DCP- Discharge Planning Updated by [email or web address]: Tiffany Edmondson on 07/15/19 8:[address] SPOKE WITH JULITO AT [facility] AND SHE HAS NOT RECEIVED THE REFERRAL, I WILL FAX AGAIN TO START THE AUTH PROCESS DCP- Discharge Planning Updated by [email or web address]: Crystal Sanders on 07/13/19 9:[address] Patient Name: NICHOLAS GARG Admission Status: Elective Accout number: [id number] Admission Date: 07-09-2019 : 1965 Admission Diagnosis: Attending: BASILIO NIETO Current LOS: 4 Anticipated DC Date: Planned Disposition: Jail Facility Primary Insurance: [facility] MEDICARE SOLUTIONS Discharge Planning Comments: CM met with patient at bedside after explaining CM role and obtaining verbal consent. Spoke with patient about the need for SNF, she states would like to go the the nursing facility in [facility]. Ash signed. States doesn't have equipment but may need wheel chair and oxygen. States someone came to see her at home about setting her up with equipment. CM to follow. Artistic Associate: Crystal Sanders DCPIA - Discharge Planning Initial Assessment Updated by [email or web address]: Crystal Sanders on 07/13/19 10:31 am * Is the patient Alert and Oriented? Yes * PCP [facility] IN [place] * [facility] * Preadmission Environment Home with Family * ADLs Independent * Equipment None * List name and contact numbers for known caregivers / representatives who currently or will assist patient after discharge: RICARDO GARG, SON, * Community resources currently utilized Home Health * Please name any agencies selected above. [facility] * Additional services required to return to the preadmission environment? Yes * Can the patient safely return to the preadmission environment? Yes * Has this patient been hospitalized within the prior 30 days at any hospital? Yes External Providers External Provider: OTHER-OTHER Next Contact Date: Service Request Date: Service Type: Resolution: Reviewer: Comments: Coverage Notice Reviewer: [id number] - Crysatl Sanders Notice Issued Date-Time: 07/13/2019 10:27 Notice Type: Patient Choice Letter Notice Delivered To: Patient Relationship to Patient: Recycling Collections Driver Name: Delivery Method: HAND - Hand Delivered Karli Days: Prior Verbal Notification: Recipient Understood Notice: Yes Recipient Signature: Yes Med Rec Note Co-signed by Attending: Coverage Notice Comment: [facility] export: 07/16/19 2:05 p Patient Name: NICHOLAS GARG Page 59485 at 1515 All edits/amendments must be made on the electronic document DICTATION DATE: 07/16/191513 CHIEF LIBRARIAN MUSIC DEPARTMENT: HEATHER 07/16/191513 RPT#: [id number] DC DATE: STATUS: ADM IN [facility] [address] [place] [address] END OF REPORT
--- NOTE | 2019-07-16 16:26 | MORECARE ---
CASE MANAGEMENT DISCHARGE SUMMARY PATIENT: NICHOLAS GARG UNIT: [id number] ADM DATE: 07/09/19 AGE: 54 : 61 SEX: F ROOM/BED: D.2217 AUTHOR: KIMO,DOC PHYSICIAN: REFERRING PHYSICIAN: BASILIO NIETO DO DATE OF SERVICE: 07/16/19 Discharge Plan Patient Name: NICHOLAS GARG Facility: [facility]:[place] : 1965 Planned Disposition: Senior Care Facility Anticipated Discharge Date: Discharge Date: Expected LOS: Initial Reviewer: [email or web address] Initial Review Date: 07/13/2019 Generated: 07/16/19 5:26 pm Comments DCP- Discharge Planning Updated by [id number]: Debby Cesar on 07/16/19 1:[address] JOURDAN completed and faxed on 07/16/19 @ 1500. Debby Cesar RN, [facility] DCP- Discharge Planning Updated by [id number]: Tiffany Edmondson on 07/15/19 2:[address] JILL ([facility]) CALLED AND STATED THAT [facility] DOES NOT HAVE AN ISOLATION ROOM. SHE WAS GOING TO COME UP HERE AND SPEAK WITH THE PATIENT ABOUT GOING TO A DIFFERENT FACILITY THAT IS ABOUT 30 MILES FROM [facility]. SHE STATED THAT SHE WILL BE UP HERE LATER TODAY TO SPEAK WITH PATIENT. CM TO FOLLOW AND ASSIST NEEDED DCP- Discharge Planning Updated by [id number]: Tiffany Edmondson on 07/15/19 8:[address] SPOKE WITH JULITO AT [facility] AND SHE HAS NOT RECEIVED THE REFERRAL, I WILL FAX AGAIN TO START THE AUTH PROCESS DCP- Discharge Planning Updated by [id number]: Crystal Sanders on 07/13/19 9:[address] Patient Name: NICHOLAS GARG Admission Status: Elective Accout number: [id number] Admission Date: 07-09-2019 : 1965 Admission Diagnosis: Attending: BASILIO NIETO Current LOS: 4 Anticipated DC Date: Planned Disposition: Senior Care Facility Primary Insurance: [facility] MEDICARE SOLUTIONS Discharge Planning Comments: CM met with patient at bedside after explaining CM role and obtaining verbal consent. Spoke with patient about the need for SNF, she states would like to go the the nursing facility in [facility]. Ash signed. States doesn't have equipment but may need wheel chair and oxygen. States someone came to see her at home about setting her up with equipment. CM to follow. Lead Military Analyst: Crystal Sanders DCPIA - Discharge Planning Initial Assessment Updated by [email or web address]: Crystal Sanders on 07/13/19 10:31 am * Is the patient Alert and Oriented? Yes * PCP BRIAN IN [place] * [facility]acy [facility] * Preadmission Environment Home with Family * ADLs Independent * Equipment None * List name and contact numbers for known caregivers / representatives who currently or will assist patient after discharge: RICARDO GARG, SON, * Community resources currently utilized Home Health * Please name any agencies selected above. [facility] * Additional services required to return to the preadmission environment? Yes * Can the patient safely return to the preadmission environment? Yes * Has this patient been hospitalized within the prior 30 days at any hospital? Yes External Providers External Provider: JOURDANJOURDAN [facility] Next Contact Date: Service Request Date: Service Type: Resolution: Reviewer: Comments: Coverage Notice Reviewer: [id number] - Cyrstal Sanders Notice Issued Date-Time: 07/13/2019 10:27 Notice Type: Patient Choice Letter Notice Delivered To: Patient Relationship to Patient: Civil Cad Designer Name: Delivery Method: HAND - Hand Delivered Karli Days: Prior Verbal Notification: Recipient Understood Notice: Yes Recipient Signature: Yes Med Rec Note Co-signed by Attending: Coverage Notice Comment: [facility] [place] [facility] [place]: 07/16/19 2:15 p Patient Name: NICHOLAS GARG Page [id number] at 1626 All edits/amendments must be made on the electronic document DICTATION DATE: 07/16/191625 FRAME WELDER CARGO UTILITY TRAILERS: HEATHER 07/16/191625 RPT#: [id number] DC DATE: STATUS: ADM IN [facility] [address] [place] [address] END OF REPORT
--- NOTE | 2019-07-16 16:26 | NUR ---
OT NOTE: REFUSED TMT TODAY SEOCNDARY TO REPORTED PAIN. EDISON ANDERSON, OTR/L
[2019-07-16 17:01] VITALS: BP 100/41
[2019-07-16 20:00] VITALS: BP 102/40
--- NOTE | 2019-07-16 20:17 | NUR ---
ASSESSMENT PER FLOWSHEET. C/O SAMUEL PAIN. OXY IR 10MG PO GIVEN FOR PAIN CONTROL. MEDS PER NOV.
--- NOTE | 2019-07-16 21:30 | NUR ---
MEDS GIVEN PER MAR. DIAZ TO BSD WITH SHELDON COLORED UA. SR UP X2 CALL LIGHT WITHIN REACH IV PATENT CHRISTOPHER PICC OF NS AT 50CC'S/HR.
--- NOTE | 2019-07-16 22:37 | NUR ---
RESTING AT THIS TIME DENIES NEEDS. SR UP X2 CALL LIGHT WITHIN REACH.
[2019-07-17] VITALS: BP 94/48
[2019-07-17 04:00] VITALS: BP 108/52
--- NOTE | 2019-07-17 06:15 | NUR ---
MEDS PER MAR RESTING QUIETLY.
[2019-07-17 07:09] LABS: BASOPHILS 0.3 % (0-2); EOSINOPHILS 2.9 % (0-7); HEMATOCRIT 26.9 % (36.0-48.0); HEMOGLOBIN 8.6 g/dL (12-16); IMMATURE GRANULOCYTES 9.9 % (0-5); LYMPHOCYTES 15.5 % (15-50); MCV 90.6 fL (80.0-100.0); MEAN PLATELET VOLUME 8.4 fL (7.4-10.4); MONOCYTES 15.1 % (2-11); NEUTROPHILS 56.3 % (40-80); PLATELET COUNT 386 10x3/uL (130-400); RBC 2.97 10x6/uL (4.00-5.40); RDW 13.9 % (11.5-14.5); WBC 9.2 10x3/uL (4.8-10.8)
--- NOTE | 2019-07-17 07:15 | NUR ---
ALERT AND ORIENTED. LUNGS CLEAR BILATERALLY IN ALL ANDRE. HEART SOUNDS S1 AND S2 HEARD IN ALL ANDRE. BOWEL SOUNDS ACTIVE X 4. WOUND VAC TO RIGHT HIP INTACT. DRSG X 2 TO RIGHT GROIN AND RIGHT HIP C/D/I. SKIN OTHERWISE INTACT WITHOUT REDNESS. DENIES NEEDS. BED LOW. CALL RUSSELL AND PERSONAL ITEMS IN REACH. WILL CONTINUE TO MONITOR.
[2019-07-17 07:24] LABS: ALBUMIN 1.8 g/dL (3.4-5.0); ANION GAP 9.8 mmol/L (8-16); BILIRUBIN - TOTAL 0.17 mg/dL (0.2-1.3); CALCIUM 7.4 mg/dL (8.5-10.1); CARBON DIOXIDE 31.5 mmol/L (21.0-32.0); POTASSIUM - SERUM 4.3 mmol/L (3.5-5.1); PROTEIN - SERUM 5.1 g/dL (6.4-8.2)
[2019-07-17 07:29] LABS: CREATININE - SERUM 0.9 mg/dL (0.6-1.3)
--- NOTE | 2019-07-17 09:19 | NUR ---
REQUESTING PRN PAIN MEDICATION. BP 101/36. REASSESSED MANUALLY. 110/50. EDUCATION PROVIDED TO PATIENT TO WAIT ON PAIN MEDICATION D/T LOW BP. STATES OK AND WILL WAIT FOR SCHEDULED VISTARIL AT 1100.
[2019-07-17 09:23] VITALS: BP 101/36
--- NOTE | 2019-07-17 09:30 | NUR ---
DRSG CHANGED TO RIGHT GROIN. DENIES FURTHER NEEDS. WILL CONTINUE TO MONITOR.
--- NOTE | 2019-07-17 09:41 | NUR ---
REFUSED TO DO PT.
--- NOTE | 2019-07-17 10:03 | NUR ---
OT NOTE: PT REFUSED AGAIN THIS AM. EDISON ANDERSON, OTR/L
--- NOTE | 2019-07-17 12:19 | NUR ---
RESTING IN BED. DENIES NEEDS. WILL CONTINUE TO MONITOR.
[2019-07-17 13:08] VITALS: BP 119/41
--- NOTE | 2019-07-17 15:24 | NUR ---
OT NOTE: PT STATED PAIN IS UNBEARABLE AND WILL NOT ATTEMPT BED MOB TASKS. NURSIG NOTIFIED. PT COMPLETED BUE AROM EXS. PT COMPLETED UB HYGIENE TASKS WITH MIN A. THANK YOU, GUSTAVO CORONA
--- NOTE | 2019-07-17 15:39 | NUR ---
RESTING IN BED. DENIES NEEDS. WILL CONTINUE TO MONITOR.
[2019-07-17 17:42] VITALS: BP 127/46
--- NOTE | 2019-07-17 17:46 | NUR ---
RESTING IN BED. DENIES NEEDS. WILL CONTINUE TO MONITOR.
--- NOTE | 2019-07-17 21:27 | NUR ---
PT ALERT & ORIENTED. C/O PAIN 05/20. GAVE OXY IR 10MG PO AND SCHEDULED MEDS. COMPLETE ASSESSMENT PER FLOW-SHEET. NO OTHER NEEDS. WILL CONTINUE TO MONITOR.
[2019-07-18 04:00] VITALS: BP 93/42
--- NOTE | 2019-07-18 07:10 | NUR ---
LYING IN BED,WITHOUT DISTRESS.DENIES NEEDS.ISOLATION MAINTAINED.CALL LIGHT IN REACH
[2019-07-18 08:06] VITALS: BP 105/32
--- NOTE | 2019-07-18 09:10 | NUR ---
OT NOTE: PT CONT TO REPORT PAIN OF 10/10. BED MOB WITH MAX ASSIST IN ORDER TO GET PT ON BEDPAN; MAX ASSIST WITH TOILET HYGIENE; ROLLING SIDE TO SIDE X 4 TIMES; PT RESISTANT TO GETTING UP TO EOB AND STATED THAT SHE WAS LEAVING TODAY. ABLE TO PERFORM SIMPLE GROOMING AND FEEDING WITH SET UP; EDISON ANDERSON, OTR/L
[2019-07-18 10:46] LABS: ERYTHROCYTE SEDIMENTATION RATE 111 mm/hr (0-30)
[2019-07-18 12:44] VITALS: BP 100/30
--- NOTE | 2019-07-18 15:27 | MORECARE ---
CASE MANAGEMENT DISCHARGE SUMMARY PATIENT: NICHOLAS GARG UNIT: [id number] ADM DATE: 07/09/19 AGE: 54 : 61 SEX: F ROOM/BED: D.2217 AUTHOR: KIMO,DOC PHYSICIAN: REFERRING PHYSICIAN: BASILIO NIETO DO DATE OF SERVICE: 07/18/19 Discharge Plan Patient Name: NICHOLAS GARG Facility: [facility]:[place] : 1965 Planned Disposition: Long Term Facility Anticipated Discharge Date: Discharge Date: Expected LOS: Initial Reviewer: [id number] Initial Review Date: 07/13/2019 Generated: 07/18/19 4:26 pm Comments DCP- Discharge Planning Updated by [id number]: Debby Cesar on 07/16/19 1:[address] JOURDAN completed and faxed on 07/16/19 @ 1500. Debby Cesar RN, [facility] DCP- Discharge Planning Updated by [email or web address]: Tiffany Edmondson on 07/15/19 2:[address] JILL ([facility]) CALLED AND STATED THAT [facility] DOES NOT HAVE AN ISOLATION ROOM. SHE WAS GOING TO COME UP HERE AND SPEAK WITH THE PATIENT ABOUT GOING TO A DIFFERENT FACILITY THAT IS ABOUT [address]ES FROM [facility]. SHE STATED THAT SHE WILL BE UP HERE LATER TODAY TO SPEAK WITH PATIENT. CM TO FOLLOW AND ASSIST NEEDED DCP- Discharge Planning Updated by [email or web address]: Tiffany Edmondson on 07/15/19 8:[address] SPOKE WITH JULITO AT [facility] AND SHE HAS NOT RECEIVED THE REFERRAL, I WILL FAX AGAIN TO START THE AUTH PROCESS DCP- Discharge Planning Updated by [email or web address]: Crystal Sanders on 07/13/19 9:[address] Patient Name: NICHOLAS GARG Admission Status: Elective Accout number: [id number] Admission Date: 07-09-2019 : 1965 Admission Diagnosis: Attending: BASILIO NIETO Current LOS: 4 Anticipated DC Date: Planned Disposition: Long Term Facility Primary Insurance: [facility] MEDICARE SOLUTIONS Discharge Planning Comments: CM met with patient at bedside after explaining CM role and obtaining verbal consent. Spoke with patient about the need for SNF, she states would like to go the the nursing facility in [facility]. Ash signed. States doesn't have equipment but may need wheel chair and oxygen. States someone came to see her at home about setting her up with equipment. CM to follow. Rejected Items Clerk: Crystal Sanders DCPIA - Discharge Planning Initial Assessment Updated by [email or web address]: Crystal Sanders on 07/13/19 10:31 am * Is the patient Alert and Oriented? Yes * PCP BRIAN IN [place] * Pharmacy [facility] * Preadmission Environment Home with Family * ADLs Independent * Equipment None * List name and contact numbers for known caregivers / representatives who currently or will assist patient after discharge: RICARDO GARG, SON, * Community resources currently utilized Home Health * Please name any agencies selected above. [facility] * Additional services required to return to the preadmission environment? Yes * Can the patient safely return to the preadmission environment? Yes * Has this patient been hospitalized within the prior 30 days at any hospital? Yes External Providers External Provider: [facility] Next Contact Date: Service Request Date: Service Type: Resolution: Reviewer: Comments: Coverage Notice Reviewer: [id number] - Crystal Sanders Notice Issued Date-Time: 07/13/2019 10:27 Notice Type: Patient Choice Letter Notice Delivered To: Patient Relationship to Patient: County Coroner Name: Delivery Method: HAND - Hand Delivered Karli Days: Prior Verbal Notification: Recipient Understood Notice: Yes Recipient Signature: Yes Med Rec Note Co-signed by Attending: Coverage Notice Comment: [facility] FOR [facility] IN [facility] DP export: 07/16/19 3:26 p Patient Name: NICHOLAS GARG Page 89627 at 1527 All edits/amendments must be made on the electronic document DICTATION DATE: 07/18/191525 SENSORY SCIENTIST: HEATHER 07/18/191525 RPT#: [id number] DC DATE: STATUS: ADM IN [facility] [address] [place] [address] END OF REPORT
--- NOTE | 2019-07-18 15:43 | MORECARE ---
CASE MANAGEMENT DISCHARGE SUMMARY PATIENT: NICHOLAS GARG UNIT: [id number] ADM DATE: 07/09/19 AGE: 54 : 61 SEX: F ROOM/BED: D.2217 AUTHOR: KIMO,DOC PHYSICIAN: REFERRING PHYSICIAN: BASILIO NIETO DO DATE OF SERVICE: 07/18/19 Discharge Plan Patient Name: NICHOLAS GARG Facility: [facility]:[place] : 1965 Planned Disposition: Residential Facility Anticipated Discharge Date: Discharge Date: Expected LOS: Initial Reviewer: [id number] Initial Review Date: 07/13/2019 Generated: 07/18/19 4:43 pm Comments DCP- Discharge Planning Updated by [email or web address]: Debby Cesar on 07/16/19 1:[address] JOURDAN completed and faxed on 07/16/19 @ 1500. Debby Cesar RN, [facility] DCP- Discharge Planning Updated by [email or web address]: Tiffany Edmondson on 07/15/19 2:[address] JILL ([facility]) CALLED AND STATED THAT [facility] DOES NOT HAVE AN ISOLATION ROOM. SHE WAS GOING TO COME UP HERE AND SPEAK WITH THE PATIENT ABOUT GOING TO A DIFFERENT FACILITY THAT IS ABOUT [address] FROM [facility]. SHE STATED THAT SHE WILL BE UP HERE LATER TODAY TO SPEAK WITH PATIENT. CM TO FOLLOW AND ASSIST NEEDED DCP- Discharge Planning Updated by [email or web address]: Tiffany Edmondson on 07/15/19 8:[address] SPOKE WITH JULITO AT [facility] AND SHE HAS NOT RECEIVED THE REFERRAL, I WILL FAX AGAIN TO START THE AUTH PROCESS DCP- Discharge Planning Updated by [email or web address]: Crystal Sanders on 07/13/19 9:[address] Patient Name: NICHOLAS GARG Admission Status: Elective Accout number: [id number] Admission Date: 07-09-2019 : 1965 Admission Diagnosis: Attending: BASILIO NIETO Current LOS: 4 Anticipated DC Date: Planned Disposition: Residential Facility Primary Insurance: [facility] MEDICARE SOLUTIONS Discharge Planning Comments: CM met with patient at bedside after explaining CM role and obtaining verbal consent. Spoke with patient about the need for SNF, she states would like to go the the nursing facility in [facility]. Ash signed. States doesn't have equipment but may need wheel chair and oxygen. States someone came to see her at home about setting her up with equipment. CM to follow. Cloth Dyeing Range Tender: Crystal Sanders DCPIA - Discharge Planning Initial Assessment Updated by [email or web address]: Crystal Sanders on 07/13/19 10:31 am * Is the patient Alert and Oriented? Yes * PCP BRIAN IN [place] * Pharmacy [facility] * Preadmission Environment Home with Family * ADLs Independent * Equipment None * List name and contact numbers for known caregivers / representatives who currently or will assist patient after discharge: RICARDO GARG, SON, * Community resources currently utilized Home Health * Please name any agencies selected above. [facility] * Additional services required to return to the preadmission environment? Yes * Can the patient safely return to the preadmission environment? Yes * Has this patient been hospitalized within the prior 30 days at any hospital? Yes External Providers External Provider: [facility] Next Contact Date: Service Request Date: Service Type: Resolution: Reviewer: Comments: Coverage Notice Reviewer: [id number] - Crystal Sanders Notice Issued Date-Time: 07/13/2019 10:27 Notice Type: Patient Choice Letter Notice Delivered To: Patient Relationship to Patient: Closet Builder Name: Delivery Method: HAND - Hand Delivered Karli Days: Prior Verbal Notification: Recipient Understood Notice: Yes Recipient Signature: Yes Med Rec Note Co-signed by Attending: Coverage Notice Comment: [facility] FOR [facility] IN [facility] export: 07/18/19 2:27 p Patient Name: NICHOLAS GARG Page 27183 at 1543 All edits/amendments must be made on the electronic document DICTATION DATE: 07/18/191542 CLASSICS TEACHER: HEATHER 07/18/191542 RPT#: [id number] DC DATE: STATUS: ADM IN [facility] [address] [place] [address] END OF REPORT
--- NOTE | 2019-07-18 15:53 | MORECARE ---
CASE MANAGEMENT DISCHARGE SUMMARY PATIENT: NICHOLAS GARG UNIT: [id number] ADM DATE: 07/09/19 AGE: 54 : 61 SEX: F ROOM/BED: D.2001 AUTHOR: KIMODOC PHYSICIAN: REFERRING PHYSICIAN: BASILIO NIETO DO DATE OF SERVICE: 07/18/19 Discharge Plan Patient Name: NICHOLAS GARG Facility: [facility]:[place] : 1965 Planned Disposition: Retirement Facility Anticipated Discharge Date: Discharge Date: Expected LOS: Initial Reviewer: [id number] Initial Review Date: 07/13/2019 Generated: 07/18/19 4:53 pm Comments DCP- Discharge Planning Updated by [email or web address]: Crystal Sanders on 07/18/19 2:[address] Patient Name: NICHOLAS GARG Admission Status: Elective Accout number: [id number] Admission Date: 07-09-2019 : 1965 Admission Diagnosis: Attending: BASILIO NIETO Current LOS: 9 Anticipated DC Date: Planned Disposition: Retirement Facility Primary Insurance: [facility] MEDICARE SOLUTIONS Discharge Planning Comments: VEDA WITH THE [employer] WORKING ON SNF AT [facility]. I FAXED HER THE JOURDAN AND THE PATIENT'S INSURANCE CARDS PER HER REQUEST. CM TO FOLLOW AND ASSIST. Train Conductor: Crystal Sanders DCP- Discharge Planning Updated by [email or web address]: Debby Cesar on 07/16/19 1:[address] JOURDAN completed and faxed on 07/16/19 @ 1500. Debby Cesar RN, [facility] DCP- Discharge Planning Updated by [id number]: Tiffany Edmondson on 07/15/19 2:31 pm DARRON MELCHOR ([facility]) CALLED AND STATED THAT [facility] DOES NOT HAVE AN ISOLATION ROOM. SHE WAS GOING TO COME UP HERE AND SPEAK WITH THE PATIENT ABOUT GOING TO A DIFFERENT FACILITY THAT IS ABOUT [address]ES FROM [facility] [place]. SHE STATED THAT SHE WILL BE UP HERE LATER TODAY TO SPEAK WITH PATIENT. CM TO FOLLOW AND ASSIST NEEDED DCP- Discharge Planning Updated by [email or web address]: Tiffany Edmondson on 07/15/19 8:[address] SPOKE WITH JULITO AT [facility] AND SHE HAS NOT RECEIVED THE REFERRAL, I WILL FAX AGAIN TO START THE AUTH PROCESS DCP- Discharge Planning Updated by [id number]: Crystal Sanders on 07/13/19 9:[address] Patient Name: NICHOLAS GARG Admission Status: Elective Accout number: [id number] Admission Date: 07-09-2019 : 1965 Admission Diagnosis: Attending: BASILIO NIETO Current LOS: 4 Anticipated DC Date: Planned Disposition: Retirement Facility Primary Insurance: [facility] MEDICARE SOLUTIONS Discharge Planning Comments: CM met with patient at bedside after explaining CM role and obtaining verbal consent. Spoke with patient about the need for SNF, she states would like to go the the nursing facility in [facility]. Ash signed. States doesn't have equipment but may need wheel chair and oxygen. States someone came to see her at home about setting her up with equipment. CM to follow. Train Conductor: Crystal Sanders DCPIA - Discharge Planning Initial Assessment Updated by [email or web address]: Crystal Sanders on 07/13/19 10:31 am * Is the patient Alert and Oriented? Yes * PCP BRIAN IN [place] * [facility] * Preadmission Environment Home with Family * ADLs Independent * Equipment None * List name and contact numbers for known caregivers / representatives who currently or will assist patient after discharge: RICARDO GARG, SON, * Community resources currently utilized Home Health * Please name any agencies selected above. [facility] * Additional services required to return to the preadmission environment? Yes * Can the patient safely return to the preadmission environment? Yes * Has this patient been hospitalized within the prior 30 days at any hospital? Yes Coverage Notice Reviewer: [id number] - Crystal Sanders Notice Issued Date-Time: 07/13/2019 10:27 Notice Type: Patient Choice Letter Notice Delivered To: Patient Relationship to Patient: Child Care Teacher Name: Delivery Method: HAND - Hand Delivered Karli Days: Prior Verbal Notification: Recipient Understood Notice: Yes Recipient Signature: Yes Med Rec Note Co-signed by Attending: Coverage Notice Comment: [facility] IN [facility] DP export: 07/18/19 2:43 p Patient Name: NICHOLAS GARG Page 64923 at 1553 All edits/amendments must be made on the electronic document DICTATION DATE: 07/18/191552 TRANSPORT ENGINEER: HEATHER 07/18/191552 RPT#: [id number] DC DATE: STATUS: ADM IN [facility] [address] [place] [address] END OF REPORT
--- NOTE | 2019-07-18 16:09 | NUR ---
OT NOTE: PT COMPLETED LB HYGIENE TASKS WITH TOTAL A. PT COMPLETED UB HYGIENE WITH MIN A TO SET UP. PT COMPLETED SIDE ROLLING WITH MOD/MAX A. THANK YOU, GUSTAVO CORONA
[2019-07-18 16:44] VITALS: BP 100/54
--- NOTE | 2019-07-18 16:46 | MORECARE ---
CASE MANAGEMENT DISCHARGE SUMMARY PATIENT: NICHOLAS GARG UNIT: [id number] ADM DATE: 07/09/19 AGE: 54 : 61 SEX: F ROOM/BED: D.4807 AUTHOR: KIMO,DOC PHYSICIAN: REFERRING PHYSICIAN: BASILIO NIETO DO DATE OF SERVICE: 07/18/19 Discharge Plan Patient Name: NICHOLAS GARG Facility: [facility]:[place] : 1965 Planned Disposition: Long-Term Facility Anticipated Discharge Date: Discharge Date: Expected LOS: Initial Reviewer: [id number] Initial Review Date: 07/13/2019 Generated: 07/18/19 5:46 pm Comments DCP- Discharge Planning Updated by [email or web address]: Crystal Sanders on 07/18/19 2:[address] Patient Name: NICHOLAS GARG Admission Status: Elective Accout number: [id number] Admission Date: 07-09-2019 : 1965 Admission Diagnosis: Attending: BASILIO NIETO Current LOS: 9 Anticipated DC Date: Planned Disposition: Long-Term Facility Primary Insurance: [facility] MEDICARE SOLUTIONS Discharge Planning Comments: VEDA WITH THE [employer] WORKING ON SNF AT [facility]. I FAXED HER THE JOURDAN AND THE PATIENT'S INSURANCE CARDS PER HER REQUEST. CM TO FOLLOW AND ASSIST. Medieval English Literature Professor: Crystal Sanders DCP- Discharge Planning Updated by [email or web address]: Debby Cesar on 07/16/19 1:[address] JOURDAN completed and faxed on 07/16/19 @ 1500. Debby Cesar RN, [facility] DCP- Discharge Planning Updated by [email or web address]: Tiffany Edomndson on 07/15/19 2:31 pm DARRON MELCHOR ([facility]) CALLED AND STATED THAT [place] [facility] DOES NOT HAVE AN ISOLATION ROOM. SHE WAS GOING TO COME UP HERE AND SPEAK WITH THE PATIENT ABOUT GOING TO A DIFFERENT FACILITY THAT IS ABOUT [address] FROM [place]. SHE STATED THAT SHE WILL BE UP HERE LATER TODAY TO SPEAK WITH PATIENT. CM TO FOLLOW AND ASSIST NEEDED DCP- Discharge Planning Updated by [email or web address]: Tiffany Edmondson on 07/15/19 8:[address] SPOKE WITH JULITO AT [facility] AND SHE HAS NOT RECEIVED THE REFERRAL, I WILL FAX AGAIN TO START THE AUTH PROCESS DCP- Discharge Planning Updated by [id number]: Crystal Sanders on 07/13/19 9:[address] Patient Name: NICHOLAS GARG Admission Status: Elective Accout number: [id number] Admission Date: 07-09-2019 : 1965 Admission Diagnosis: Attending: BASILIO NIETO Current LOS: 4 Anticipated DC Date: Planned Disposition: Long-Term Facility Primary Insurance: [facility] MEDICARE SOLUTIONS Discharge Planning Comments: CM met with patient at bedside after explaining CM role and obtaining verbal consent. Spoke with patient about the need for SNF, she states would like to go the the nursing facility in [facility]. Ash signed. States doesn't have equipment but may need wheel chair and oxygen. States someone came to see her at home about setting her up with equipment. CM to follow. Medieval English Literature Professor: Crystal Sanders DCPIA - Discharge Planning Initial Assessment Updated by [email or web address]: Crystal Sanders on 07/13/19 10:31 am * Is the patient Alert and Oriented? Yes * PCP BRIAN IN [place] * [facility] * Preadmission Environment Home with Family * ADLs Independent * Equipment None * List name and contact numbers for known caregivers / representatives who currently or will assist patient after discharge: RICARDO GARG, SON, * Community resources currently utilized Home Health * Please name any agencies selected above. [facility] * Additional services required to return to the preadmission environment? Yes * Can the patient safely return to the preadmission environment? Yes * Has this patient been hospitalized within the prior 30 days at any hospital? Yes Coverage Notice Reviewer: [id number] - Crystal Sanders Notice Issued Date-Time: 07/13/2019 10:27 Notice Type: Patient Choice Letter Notice Delivered To: Patient Relationship to Patient: Liner Replacer Name: Delivery Method: HAND - Hand Delivered Karli Days: Prior Verbal Notification: Recipient Understood Notice: Yes Recipient Signature: Yes Med Rec Note Co-signed by Attending: Coverage Notice Comment: [facility] [place] [facility] [place] export: 07/18/19 2:53 p Patient Name: NICHOLAS GARG Page 84457 at 1646 All edits/amendments must be made on the electronic document DICTATION DATE: 07/18/191645 BIKE MECHANIC: HEATHER 07/18/191645 RPT#: [id number] DC DATE: STATUS: ADM IN [facility] [address] [place] [address] END OF REPORT
--- NOTE | 2019-07-18 19:15 | NUR ---
LATE ENTRY: PATIENT ALERT AND ORIENTED WHEN ENTERING THE ROOM. PATIENT WITH HOB ELEVATED TO A 30 DEGREE ANGLE. LEFT UPPER ARM PICC LINE WITH NS @ 50.
--- NOTE | 2019-07-18 19:15 | NUR ---
LATE ENTRY: PATIENT ALERT AND ORIENTED WHEN ENTERING THE ROOM. PATIENT WITH LEFT UPPER ARM PICC LINE INFUSING NS @ 50. INCISION TO THE RIGHT HIP THAT HAS WOUND VAC THAT IS SEALED AND SUCTIONING APPROPRIATELY. ACTIVE BOWEL SOUNDS. PATIENT COMPLAINS OF "DIARRHEA" THROUGH OUT THE DAY. PATIENT ASKS FOR PAIN MEDICINE AND XANAX WHEN AVAILABLE. DENIES FURTHER ISSUES. CALL LIGHT IN REACH. CPOC.
--- NOTE | 2019-07-18 19:54 | NUR ---
PT REAINS WITHOUT CHANGE.CONT PLAN OF CARE
[2019-07-18 21:02] VITALS: BP 94/41
[2019-07-19 01:20] VITALS: BP 100/49
--- NOTE | 2019-07-19 03:43 | NUR ---
I have reviewed this patient and I concur with the Shift Assessment completed by the Licensed Practical Nurse today this shift.
[2019-07-19 05:52] VITALS: BP 111/58
--- NOTE | 2019-07-19 07:20 | NUR ---
PT RESTING IN BED. NO SIGNS OF DISTRESS. IV TO LEFT UPPER ARM PATENT NO REDNESS OR TENDERNESS. COMPLAINS OF PAIN. MEDICATIONS GIVEN. HAS INCISION AND WOUND VAC TO RIGHT HIP. DENIES ANY FURTHER NEED AT THIS TIME. CALL LIGHT IN REACH. BED LOW POSTIION NO FAMILY AT BEDSIDE AT THIS TIME.
[2019-07-19 08:56] VITALS: BP 110/61
[2019-07-19 12:40] VITALS: BP 111/52
--- NOTE | 2019-07-19 15:06 | NUR ---
PT IS WITHOUT DISTRESS.CONTACT ISOLATION MAINTAINED.
[2019-07-19 17:29] VITALS: BP 108/54
--- NOTE | 2019-07-19 19:15 | NUR ---
ALERT AND ORIENTED WHEN ENTERING THE ROOM. PATIENT HAD BOWEL MOVEMENT. CLEANED AND OBTAINED SAMPLE. DIAZ CARE PROVIDED. WOUND VAC TO THE RIGHT HIP INCISION. PATIENT REQUESTING MEDICINE WHEN AVAILABLE. DIAZ CATHETER IN PLACE AND DRAINING YELLOW URINE. DENIES OTHER ISSUES AT THIS TIME. CALL LIGHT IN REACH.
[2019-07-19 20:56] VITALS: BP 114/59
[2019-07-20 00:36] VITALS: BP 116/59
[2019-07-20 05:21] VITALS: BP 118/83
--- NOTE | 2019-07-20 06:14 | NUR ---
I have reviewed this patient and I concur with the Shift Assessment completed by the Licensed Practical Nurse today this shift.
--- NOTE | 2019-07-20 07:30 | NUR ---
PT IS RESTING IN BED WITH EYES CLOSED. RESPIRATIONS ARE EVEN AND UNLABORED. PT IS EASILY AROUSED WITH VERBAL STIMULATION. PT IS AAO X 4 UPON AROUSAL. LEFT UPPER ARM PICC INFUSING WITHOUT DIFFICULTY. DIAZ CATHETER NOTED WITH DARK YELLOW URINE IN COLLECTION BAG DRAINING WITHOUT DIFFICULTY. WOUND VAC NOTED TO RIGHT HIP DRESSING INTACT. PT DENIES PRESENCE OF NUMBNESS/TINGLING. PT DENIES PRESENCE OF N/V. PT REPORTS PAIN 10/10. WILL ADDRESS. SEE EMAR. CONTACT ISOLATION PRECAUTIONS ARE IN PLACE. BED IS IN THE LOWEST POSITION. CALL LIGHT AND BEDSIDE TABLE ARE WITIHN REACH. SIDE RAILS X 2. PT DENIES FURTHER NEEDS. WILL CONT TO MONITOR.
[2019-07-20 09:19] VITALS: BP 113/62
[2019-07-20 12:20] VITALS: BP 116/52
[2019-07-20 17:04] VITALS: BP 114/46
--- NOTE | 2019-07-20 17:44 | MORECARE ---
CASE MANAGEMENT DISCHARGE SUMMARY PATIENT: NICHOLAS GARG UNIT: [id number] ADM DATE: 07/09/19 AGE: 54 : 61 SEX: F ROOM/BED: D.2217 AUTHOR: KIMO,DOC PHYSICIAN: REFERRING PHYSICIAN: BASILIO NIETO DO DATE OF SERVICE: 07/20/19 Discharge Plan Patient Name: NICHOLAS GARG Facility: [facility]:[place] : 1965 Planned Disposition: Senior Living Facility Anticipated Discharge Date: Discharge Date: Expected LOS: Initial Reviewer: [id number] Initial Review Date: 07/13/2019 Generated: 07/20/19 6:44 pm Comments DCP- Discharge Planning Updated by [id number]: Crystal Sanders on 07/20/19 4:[address] Patient Name: NICHOLAS GARG Admission Status: Elective Accout number: [id number] Admission Date: 07-09-2019 : 1965 Admission Diagnosis: Attending: BASILIO NIETO Current LOS: 11 Anticipated DC Date: Planned Disposition: Senior Living Facility Primary Insurance: [facility] [employer] SOLUTIONS Discharge Planning Comments: FAXED UPDATE TO JILL WITH THE [facility] FOR PLACEMENT WITH [facility]. Switchboard Operator Receptionist: Crystal Sanders DCP- Discharge Planning Updated by [id number]: Crystal Sanders on 07/18/19 2:[address] Patient Name: NICHOLAS GARG Admission Status: Elective Accout number: [id number] Admission Date: 07-09-2019 : 1965 Admission Diagnosis: Attending: BASILIO NIETO Current LOS: 9 Anticipated DC Date: Planned Disposition: Senior Living Facility Primary Insurance: [facility] MEDIC[employer] SOLUTIONS Discharge Planning Comments: VEDA WITH THE [facility] WORKING ON SNF AT [facility]. I FAXED HER THE JOURDAN AND THE PATIENT'S INSURANCE CARDS PER HER REQUEST. CM TO FOLLOW AND ASSIST. Switchboard Operator Receptionist: Crystal Sanders DCP- Discharge Planning Updated by [id number]: Debby Cesar on 07/16/19 1:[address] JOURDAN completed and faxed on 07/16/19 @ 1500. Debby Cesar RN, [facility] DCP- Discharge Planning Updated by [email or web address]: Tiffany Debo on 07/15/19 2:[address] JILL ([facility], [facility]) CALLED AND STATED THAT [facility] DOES NOT HAVE AN ISOLATION ROOM. SHE WAS GOING TO COME UP HERE AND SPEAK WITH THE PATIENT ABOUT GOING TO A DIFFERENT FACILITY THAT IS ABOUT 30 MILES FROM [place]. SHE STATED THAT SHE WILL BE UP HERE LATER TODAY TO SPEAK WITH PATIENT. CM TO FOLLOW AND ASSIST NEEDED DCP- Discharge Planning Updated by [id number]: Tiffany Conteken on 07/15/19 8:[address] SPOKE WITH JULITO AT [facility] AND SHE HAS NOT RECEIVED THE REFERRAL, I WILL FAX AGAIN TO START THE AUTH PROCESS DCP- Discharge Planning Updated by [id number]: Crystal Sanders on 07/13/19 9:[address] Patient Name: NICHOLAS GARG Admission Status: Elective Accout number: [id number] Admission Date: 07-09-2019 : 1965 Admission Diagnosis: Attending: BASILIO NIETO Current LOS: 4 Anticipated DC Date: Planned Disposition: Senior Living Facility Primary Insurance: [facility] [employer]UT[employer] Discharge Planning Comments: CM met with patient at bedside after explaining CM role and obtaining verbal consent. Spoke with patient about the need for SNF, she states would like to go the the nursing facility in [facility]. Ash signed. States doesn't have equipment but may need wheel chair and oxygen. States someone came to see her at home about setting her up with equipment. CM to follow. Switchboard Operator Receptionist: Crystal Sanders DCPIA - Discharge Planning Initial Assessment Updated by [email or web address]: Crystal Sanders on 07/13/19 10:31 am * Is the patient Alert and Oriented? Yes * PCP BRIAN IN [place] * [facility]acy [facility] * Preadmission Environment Home with Family * ADLs Independent * Equipment None * List name and contact numbers for known caregivers / representatives who currently or will assist patient after discharge: RICARDO GARG, SON, * Community resources currently utilized Home Health * Please name any agencies selected above. [facility] * Additional services required to return to the preadmission environment? Yes * Can the patient safely return to the preadmission environment? Yes * Has this patient been hospitalized within the prior 30 days at any hospital? Yes Coverage Notice Reviewer: [id number] - Crystal Marilyn Notice Issued Date-Time: 07/13/2019 10:27 Notice Type: Patient Choice Letter Notice Delivered To: Patient Relationship to Patient: Deep Sea Diver Name: Delivery Method: HAND - Hand Delivered Karli Days: Prior Verbal Notification: Recipient Understood Notice: Yes Recipient Signature: Yes Med Rec Note Co-signed by Attending: Coverage Notice Comment: [facility] FOR [facility] IN [facility] export: 07/18/19 3:46 p Patient Name: NICHOLAS GARG Page 70743 at 1744 All edits/amendments must be made on the electronic document DICTATION DATE: 07/20/191742 ORDNANCE ENGINEERING TECHNICIAN: HEATHER 07/20/191742 RPT#: [id number] DC DATE: STATUS: ADM IN [facility] [address] [place] [address] END OF REPORT
[2019-07-20 20:00] VITALS: BP 110/60
[2019-07-21] VITALS: BP 100/58
--- NOTE | 2019-07-21 04:11 | NUR ---
PT C/O HIP AND BACK PAIN 05/20. GAVE VISTARIL AND OXY 10 MG PO. BROUGHT PT LARGE COFFEE AND ICE. ASSISTED TO REPOSITION. NO OTHER NEEDS. WILL CONTINUE TO MONITOR.
--- NOTE | 2019-07-21 07:56 | NUR ---
PT IS RESTING IN BED WITH EYES OPEN. RESPIRATIONS ARE EVEN AND UNLABORED. PT REPORTS PAIN 10/10. PT IS HYPOTENSIVE AND EDUCATED ON PAIN MEDICATION AND SIDE EFFECTS. PT GIVEN NONPHARMACOLOGICAL FORMS OF ANALGESIA. PT VERBALIZES UNDERSTANDING. PT IS "OK WITH THAT". WOUND VAC NOTED TO RIGHT HIP INTACT AND WITHOUT COMPROMISE. DIAZ CATHETER NOTED AND DRAINING WITHOUT DIFFICULTY. PEDAL PULSES PALP. CAP REFILL TO BILATERAL LOWER EXTREMITIES IS < 3. PT DENIES PRESENCE OF NUMBNESS/TINGLING/N/V AT THIS TIME. LEFT UPPER ARM PICC IS INFUSING WITHOUT DIFFICULTY. PT ENCOURAGED TO TCDB AND INCENTIVE SPIROMETER IS AT BEDSIDE. PT PROMPTED TO USE IS. PT VERBALIZES UNDERSTANDING OF IMPORTANCE OF USE AND STATES THAT SHE "KNOWS HOW TO USE IT". BED IS IN THE LOWEST POSITION. CALL LIGHT AND BEDSIDE TABLE ARE WITHIN REACH. SIDE RAILS X 2. PT DENIES FURTHER NEEDS. WILL CONT TO MONITOR.
[2019-07-21 08:21] VITALS: BP 100/58
--- NOTE | 2019-07-21 09:05 | MORECARE ---
CASE MANAGEMENT DISCHARGE SUMMARY PATIENT: NICHOLAS GARG UNIT: [id number] ADM DATE: 07/09/19 AGE: 54 : 61 SEX: F ROOM/BED: D.2217 AUTHOR: JASMYN MALIN PHYSICIAN: REFERRING PHYSICIAN: BASILIO NIETO DO DATE OF SERVICE: 07/21/19 Discharge Plan Patient Name: NICHOLAS GARG Facility: [facility]:[place] : 1965 Planned Disposition: Residential Facility Anticipated Discharge Date: Discharge Date: Expected LOS: Initial Reviewer: [id number] Initial Review Date: 07/13/2019 Generated: 07/21/19 10:04 am Comments DCP- Discharge Planning Updated by [id number]: Tiffany Edmondson on 07/21/19 8:[address] CALLED JILL FOR AN UPDATE ON PLACEMENT, I LEFT MESSAGE FOR HER TO CALL ME BACK. DCP- Discharge Planning Updated by [email or web address]: Crystal Sanders on 07/20/19 4:[address] Patient Name: NICHOLAS GARG Admission Status: Elective Accout number: [id number] Admission Date: 07-09-2019 : 1965 Admission Diagnosis: Attending: BASILIO NIETO Current LOS: 11 Anticipated DC Date: Planned Disposition: Residential Facility Primary Insurance: [facility] MEDICARE SOLUTIONS Discharge Planning Comments: FAXED UPDATE TO JILL WITH THE [employer] FOR PLACEMENT WITH [facility]. Tire Duster: Crystal Sanders DCP- Discharge Planning Updated by [email or web address]: Crystal Sanders on 07/18/19 2:[address] Patient Name: NICHOLAS GARG Admission Status: Elective Accout number: [id number] Admission Date: 07-09-2019 : 1965 Admission Diagnosis: Attending: ABSILIO NIETO Current LOS: 9 Anticipated DC Date: Planned Disposition: Residential Facility Primary Insurance: [facility] [employer] SOLUTIONS Discharge Planning Comments: VEDA WITH THE [facility] WORKING ON SNF AT [facility]. I FAXED HER THE JOURDAN AND THE PATIENT'S INSURANCE CARDS PER HER REQUEST. CM TO FOLLOW AND ASSIST. Tire Duster: Crystal Sanders DCP- Discharge Planning Updated by [email or web address]: Debby Cesar on 07/16/19 1:[address] JOURDAN completed and faxed on 07/16/19 @ 1500. Debby Cesar RN, [facility] DCP- Discharge Planning Updated by [email or web address]: Tiffany Edmondson on 07/15/19 2:[address] JILL ([facility], [facility]) CALLED AND STATED THAT [facility] DOES NOT HAVE AN ISOLATION ROOM. SHE WAS GOING TO COME UP HERE AND SPEAK WITH THE PATIENT ABOUT GOING TO A DIFFERENT FACILITY THAT IS ABOUT 30 [address]ES FROM [place]. SHE STATED THAT SHE WILL BE UP HERE LATER TODAY TO SPEAK WITH PATIENT. CM TO FOLLOW AND ASSIST NEEDED DCP- Discharge Planning Updated by [id number]: Tiffany Edmondson on 07/15/19 8:[address] SPOKE WITH JULITO AT [facility] AND SHE HAS NOT RECEIVED THE REFERRAL, I WILL FAX AGAIN TO START THE AUTH PROCESS DCP- Discharge Planning Updated by [id number]: Crystal Sanders on 07/13/19 9:[address] Patient Name: NICHOLAS GARG Admission Status: Elective Accout number: [id number] Admission Date: 07-09-2019 : 1965 Admission Diagnosis: Attending: BASILIO NIETO Current LOS: 4 Anticipated DC Date: Planned Disposition: Residential Facility Primary Insurance: [facility] [employer] Discharge Planning Comments: CM met with patient at bedside after explaining CM role and obtaining verbal consent. Spoke with patient about the need for SNF, she states would like to go the the nursing facility in [facility]. Ash signed. States doesn't have equipment but may need wheel chair and oxygen. States someone came to see her at home about setting her up with equipment. CM to follow. Tire Duster: Crystal Sanders DCPIA - Discharge Planning Initial Assessment Updated by [id number]: Crystal Sanders on 07/13/19 10:31 am * Is the patient Alert and Oriented? Yes * PCP BRIAN IN [place] * [facility]acy [facility] * Preadmission Environment Home with Family * ADLs Independent * Equipment None * List name and contact numbers for known caregivers / representatives who currently or will assist patient after discharge: RICARDO GARG, SON, * Community resources currently utilized Home Health * Please name any agencies selected above. [facility] * Additional services required to return to the preadmission environment? Yes * Can the patient safely return to the preadmission environment? Yes * Has this patient been hospitalized within the prior 30 days at any hospital? Yes Coverage Notice Reviewer: [id number] Joyce Sanders Notice Issued Date-Time: 07/13/2019 10:27 Notice Type: Patient Choice Letter Notice Delivered To: Patient Relationship to Patient: Shell Fisherman Name: Delivery Method: HAND - Hand Delivered Karli Days: Prior Verbal Notification: Recipient Understood Notice: Yes Recipient Signature: Yes Med Rec Note Co-signed by Attending: Coverage Notice Comment: [facility] FOR [facility] IN [facility] DP export: 07/20/19 4:44 Patient Name: NICHOLAS GARG Page 45299 at 0905 All edits/amendments must be made on the electronic document DICTATION DATE: 07/21/19903 RAIL FLAW DETECTOR OPERATOR: HEATHER 07/21/19903 RPT#: [id number] DC DATE: STATUS: ADM IN [facility] [address] [place] [address] END OF REPORT
[2019-07-21 11:35] LABS: BASOPHILS 0.2 % (0-2); EOSINOPHILS 1.9 % (0-7); HEMATOCRIT 23.9 % (36.0-48.0); HEMOGLOBIN 7.6 g/dL (12-16); IMMATURE GRANULOCYTES 1.6 % (0-5); LYMPHOCYTES 16.2 % (15-50); MCH 29.2 pg (26.0-34.0); MCHC 31.8 g/dL (31.0-37.0); MCV 91.9 fL (80.0-100.0); MEAN PLATELET VOLUME 8.2 fL (7.4-10.4); MONOCYTES 9.3 % (2-11); NEUTROPHILS 70.8 % (40-80); PLATELET COUNT 450 10x3/uL (130-400); RDW 13.8 % (11.5-14.5); WBC 10.4 10x3/uL (4.8-10.8)
[2019-07-21 12:11] LABS: ALBUMIN 1.8 g/dL (3.4-5.0); ALKALINE PHOSPHATASE 74 U/L (46-116); ALT (SGPT) 9 U/L (10-68); BILIRUBIN - TOTAL 0.18 mg/dL (0.2-1.3); CALC OSMOLALITY 273 mosm/kg (275-300); CALCIUM 8.1 mg/dL (8.5-10.1); CARBON DIOXIDE 30.2 mmol/L (21.0-32.0); CHLORIDE - SERUM 100 mmol/L (98-107); CREATININE - SERUM 0.8 mg/dL (0.6-1.3); GLUCOSE 99 mg/dL (74-106); POTASSIUM - SERUM 4.7 mmol/L (3.5-5.1); SODIUM 136 mmol/L (136-145); UREA NITROGEN 18 mg/dL (7-18); eGFR NON AFRICAN AMERICAN 78 mL/min (90-120)
[2019-07-21 12:12] VITALS: BP 100/45
--- NOTE | 2019-07-21 15:04 | NUR ---
OT NOTE: PT COMPLETED BUE AROM EXS WHILE SUPINE IN BED. PT COMPLETED UB HYGIENE TASKS WITH SETUP. PT STATED SHE IS IN TOO MUCH PAIN TO MOVE. PT STATED SHE HAS NOT BEING GIVEN PAIN MEDICINE SECONDARY TO BP ISSUES. NURSING AWARE. THANK YOU,GUSTAVO CORONA
--- NOTE | 2019-07-21 15:12 | NUR ---
UNIT (1) OF PRBC TRANSFUSION STARTED. VSS. SEE TRANSFUSION CARD. PT WITHOUT APPARENT S/S OF DISTRESS. PRBC INFUSING WITHOUT DIFFICULTY. FRIEND AT BEDSIDE. PT IS AAO X 4. WILL STAY IN ROOM TO CLOSELY MONITOR PT FOR FIRST 15 MINUTES.
--- NOTE | 2019-07-21 15:26 | NUR ---
VSS. SEE TRANSFUSION CARD. PT WITHOUT APPARENT S/S OF DISTRESS AT THIS TIME. PRBC INFUSING WITHOUT DIFFICULTY TO LEFT UPPER ARM PICC. BED IS IN THE LOWEST POSITION. CALL LIGHT AND BEDSIDE TABLE ARE WITHIN REACH. SIDE RAILS X 2. WILL CONT TO MONITOR.
[2019-07-21 16:57] VITALS: BP 104/55
--- NOTE | 2019-07-21 17:06 | NUR ---
PRBC INFUSING WITHOUT DIFFICULTY. PT IS RESTING COMFORTABLY. PT IS EASILY AROUSED WITH VERBAL STIMULATION. NO APPARENT S/S OF DISTRESS NOTED. BED IS IN THE LOWEST POSITION. CALL LIGHT AND BEDSIDE TABLE ARE WITHIN REACH. SIDE RAILS X 2. WILL CONT TO MONITOR.
--- NOTE | 2019-07-21 18:10 | NUR ---
UNIT (2) OF PRBC TRANSFUSION STARTED. PT REPORTS PAIN 10/10. PAIN ADDRESSED SEE EMAR. PT IS GRABBING SIDE RAILS AND REFUSES TO LET GO TO OBTAIN ACCURATE BP. PT IS MOVING IN THE BED STATING "I CANT TAKE THIS PAIN ANY MORE". PT ENCOURAGED TO DEEP BREATH AND TAKE RELAXING BREATHS. PT VERBALIZES UNDERSTANDING. PT WITHOUT APPARENT S/S OF DISTRESS. PRBC INFUSING WITHOUT DIFFICULTY. WILL STAY IN ROOM TO MONITOR FOR FIRST 15 MINUTES OF INFUSION.
[2019-07-21 20:00] VITALS: BP 96/42
[2019-07-21 22:25] VITALS: BP 92/48
[2019-07-22] VITALS: BP 98/44
[2019-07-22 00:06] LABS: CALC OSMOLALITY 276 mosm/kg (275-300); CALCIUM 7.9 mg/dL (8.5-10.1); CARBON DIOXIDE 33.6 mmol/L (21.0-32.0); CHLORIDE - SERUM 101 mmol/L (98-107); CREATININE - SERUM 0.8 mg/dL (0.6-1.3); GLUCOSE 97 mg/dL (74-106); POTASSIUM - SERUM 4.5 mmol/L (3.5-5.1); SODIUM 138 mmol/L (136-145); UREA NITROGEN 16 mg/dL (7-18); eGFR NON AFRICAN AMERICAN 78 mL/min (90-120)
[2019-07-22 00:18] LABS: BASOPHILS 0.3 % (0-2); EOSINOPHILS 2.1 % (0-7); HEMATOCRIT 28.3 % (36.0-48.0); HEMOGLOBIN 9.1 g/dL (12-16); IMMATURE GRANULOCYTES 1.6 % (0-5); LYMPHOCYTES 14.9 % (15-50); MCH 28.8 pg (26.0-34.0); MCHC 32.2 g/dL (31.0-37.0); MEAN PLATELET VOLUME 8.2 fL (7.4-10.4); MONOCYTES 10.5 % (2-11); NEUTROPHILS 70.6 % (40-80); PLATELET COUNT 418 10x3/uL (130-400); RDW 14.4 % (11.5-14.5)
[2019-07-22 00:19] LABS: MCV 89.6 fL (80.0-100.0); RBC 3.16 10x6/uL (4.00-5.40)
--- NOTE | 2019-07-22 02:55 | NUR ---
PT RESTING IN BED. EYES CLOSED. NO SIGNS OF DISTRESS. BREATHING EVEN AND UNLABORED. IV SITE LT UPPER ARM PICC. DRESSING CLEAN DRY AND INTACT. NO SIGNS OF INFECTION. LUNG SOUNDS CLEAR. BOWEL SOUNDS ACTIVE. DIAZ IN PLACE CLEAN DRY AND INTACT. GROIN RED. RT HIP WOUND VAC PRESENT. DRESSING CLEAN DRY AND INTACT. WILL CONTINUE PLAN OF CARE. CALL LIGHT IN REACH. BED LOWERED AND LOCKED. BED RAILS UPX2.
[2019-07-22 04:00] VITALS: BP 110/62
--- NOTE | 2019-07-22 04:30 | NUR ---
I have reviewed this patient and I concur with the Shift Assessment completed by the Licensed Practical Nurse today this shift.
[2019-07-22 04:48] LABS: BASOPHILS 0.2 % (0-2); HEMATOCRIT 28.5 % (36.0-48.0); IMMATURE GRANULOCYTES 1.3 % (0-5); MCH 28.6 pg (26.0-34.0); MCHC 31.6 g/dL (31.0-37.0); MCV 90.5 fL (80.0-100.0); MEAN PLATELET VOLUME 8.4 fL (7.4-10.4); MONOCYTES 11.6 % (2-11); NEUTROPHILS 65.9 % (40-80); PLATELET COUNT 425 10x3/uL (130-400); RBC 3.15 10x6/uL (4.00-5.40); RDW 14.9 % (11.5-14.5); WBC 9.2 10x3/uL (4.8-10.8)
[2019-07-22 05:08] LABS: ALBUMIN 1.7 g/dL (3.4-5.0); ALKALINE PHOSPHATASE 74 U/L (46-116); ALT (SGPT) 7 U/L (10-68); CALC OSMOLALITY 275 mosm/kg (275-300); CALCIUM 8.2 mg/dL (8.5-10.1); CARBON DIOXIDE 32.7 mmol/L (21.0-32.0); CHLORIDE - SERUM 103 mmol/L (98-107); CREATININE - SERUM 0.8 mg/dL (0.6-1.3); GLUCOSE 89 mg/dL (74-106); POTASSIUM - SERUM 4.3 mmol/L (3.5-5.1); PROTEIN - SERUM 5.7 g/dL (6.4-8.2); SODIUM 138 mmol/L (136-145); UREA NITROGEN 14 mg/dL (7-18); eGFR NON AFRICAN AMERICAN 78 mL/min (90-120)
--- NOTE | 2019-07-22 07:10 | NUR ---
ALERT AND ORIENTED, RESTING IN BED. ON CONTACT ISOLATION. NO C/O PAIN. NO S/S OF ACUTE DISTRESS NOTED. WOUND VAC TO RIGHT HIP. DIAZ CATHETER PRESENT. REDNESS TO GROIN AREA. LEFT UPPER ARM PICC, NS INFUSING @ 50ML/HR. SITE PATENT WITHOUT REDNESS OR SWELLING. DENIES ANY NEEDS AT THIS TIME. CALL LIGHT IN REACH. WILL CONTINUE TO MONITOR.
[2019-07-22 08:19] VITALS: BP 114/49
[2019-07-22] MEDS ORDERED: MAXIPIME 2 GM/D52 G1 IV (11:14)
[2019-07-22] MEDS ORDERED: LEVAQUIN750 MG PO (11:14)
[2019-07-22] MEDS ORDERED: OXYCODONE HCL5 M1 PO (11:15)
--- NOTE | 2019-07-22 11:46 | MORECARE ---
CASE MANAGEMENT DISCHARGE SUMMARY PATIENT: NICHOLAS GARG UNIT: [id number] ADM DATE: 07/09/19 AGE: 54 : 61 SEX: F ROOM/BED: D.2217 AUTHOR: JASMYN MALIN PHYSICIAN: REFERRING PHYSICIAN: BASILIO NIETO DO DATE OF SERVICE: 07/22/19 Discharge Plan Patient Name: NICHOLAS GARG Facility: [facility]:[place] : 1965 Planned Disposition: Chcf Facility Anticipated Discharge Date: Discharge Date: Expected LOS: Initial Reviewer: [id number] Initial Review Date: 07/13/2019 Generated: 07/22/19 12:46 pm Comments DCP- Discharge Planning Updated by [id number]: Tiffany Edmondson on 07/21/19 8:[address] CALLED JILL FOR AN UPDATE ON PLACEMENT, I LEFT MESSAGE FOR HER TO CALL ME BACK. DCP- Discharge Planning Updated by [email or web address]: Crystal Sanders on 07/20/19 4:[address] Patient Name: NICHOLAS GARG Admission Status: Elective Accout number: [id number] Admission Date: 07-09-2019 : 1965 Admission Diagnosis: Attending: BASILIO NIETO Current LOS: 11 Anticipated DC Date: Planned Disposition: Chcf Facility Primary Insurance: [facility] MEDICARE SOLUTIONS Discharge Planning Comments: FAXED UPDATE TO JILL WITH THE [facility] FOR PLACEMENT WITH [facility]. Quality Systems Specialist: Crystal Sanders DCP- Discharge Planning Updated by [id number]: Crystal Sanders on 07/18/19 2:[address] Patient Name: NICHOLAS GARG Admission Status: Elective Accout number: [id number] Admission Date: 07-09-2019 : 1965 Admission Diagnosis: Attending: BASILIO NIETO Current LOS: 9 Anticipated DC Date: Planned Disposition: Chcf Facility Primary Insurance: [facility] MED[employer] SOLUTIONS Discharge Planning Comments: VEDA WITH THE [facility] WORKING ON SNF AT [facility]. I FAXED HER THE JOURDAN AND THE PATIENT'S INSURANCE CARDS PER HER REQUEST. CM TO FOLLOW AND ASSIST. Quality Systems Specialist: Crystal Sanders DCP- Discharge Planning Updated by [email or web address]: Debby Cesar on 07/16/19 1:[address] JOURDAN completed and faxed on 07/16/19 @ 1500. Debby Cesar RN, [facility] DCP- Discharge Planning Updated by [id number]: Tiffany Edmondson on 07/15/19 2:[address] JILL ([facility]) CALLED AND STATED THAT [place] DOES NOT HAVE AN ISOLATION ROOM. SHE WAS GOING TO COME UP HERE AND SPEAK WITH THE PATIENT ABOUT GOING TO A DIFFERENT FACILITY THAT IS ABOUT 30 MILES FROM [place]. SHE STATED THAT SHE WILL BE UP HERE LATER TODAY TO SPEAK WITH PATIENT. CM TO FOLLOW AND ASSIST NEEDED DCP- Discharge Planning Updated by [id number]: Tiffany Edmondson on 07/15/19 8:[address] SPOKE WITH JULITO AT [facility] AND SHE HAS NOT RECEIVED THE REFERRAL, I WILL FAX AGAIN TO START THE AUTH PROCESS DCP- Discharge Planning Updated by [id number]: Crystal Sanders on 07/13/19 9:[address] Patient Name: NICHOLAS GARG Admission Status: Elective Accout number: [id number] Admission Date: 07-09-2019 : 1965 Admission Diagnosis: Attending: BASILIO NIETO Current LOS: 4 Anticipated DC Date: Planned Disposition: [facility]cf Facility Primary Insurance: [facility] [employer]UTIONS Discharge Planning Comments: CM met with patient at bedside after explaining CM role and obtaining verbal consent. Spoke with patient about the need for SNF, she states would like to go the the nursing facility in [facility]. Ash signed. States doesn't have equipment but may need wheel chair and oxygen. States someone came to see her at home about setting her up with equipment. CM to follow. Quality Systems Specialist: Crystal Sanders DCPIA - Discharge Planning Initial Assessment Updated by [email or web address]: Crystal Sanders on 07/13/19 10:31 am * Is the patient Alert and Oriented? Yes * PCP BRIAN IN [place] * [facility]acy [facility] * Preadmission Environment Home with Family * ADLs Independent * Equipment None * List name and contact numbers for known caregivers / representatives who currently or will assist patient after discharge: RICARDO GARG, SON, * Community resources currently utilized Home Health * Please name any agencies selected above. [facility] * Additional services required to return to the preadmission environment? Yes * Can the patient safely return to the preadmission environment? Yes * Has this patient been hospitalized within the prior 30 days at any hospital? Yes Coverage Notice Reviewer: [id number] Joyce Sanders Notice Issued Date-Time: 07/13/2019 10:27 Notice Type: Patient Choice Letter Notice Delivered To: Patient Relationship to Patient: Training Consultant Name: Delivery Method: HAND - Hand Delivered Karli Days: Prior Verbal Notification: Recipient Understood Notice: Yes Recipient Signature: Yes Med Rec Note Co-signed by Attending: Coverage Notice Comment: [facility] FOR [facility] IN [place] Reviewer: [id number] Joyce Edmondson Notice Issued Date-Time: 07/22/2019 11:35 Notice Type: Patient Choice Letter Notice Delivered To: Patient Relationship to Patient: Training Consultant Name: Delivery Method: HAND - Hand Delivered Karli Days: Prior Verbal Notification: Recipient Understood Notice: Yes Recipient Signature: Yes Med Rec Note Co-signed by Attending: Coverage Notice Comment: Reviewer: [email or web address] Joyce Edmondson Notice Issued Date-Time: 07/22/2019 11:35 Notice Type: IM Discharge Notice Notice Delivered To: Patient Relationship to Patient: Training Consultant Name: Delivery Method: HAND - Hand Delivered Karli Days: Prior Verbal Notification: Recipient Understood Notice: Yes Recipient Signature: Yes Med Rec Note Co-signed by Attending: Coverage Notice Comment: Last DP export: 07/21/19 8:05 Patient Name: NICHOLAS GARG Page 35827 at 1146 All edits/amendments must be made on the electronic document DICTATION DATE: 07/22/19 1146 MUCK BOSS: HEATHER 07/22/19 1146 RPT#: [id number] DC DATE: STATUS: ADM IN [facility] [address] [place] [address] END OF REPORT
--- NOTE | 2019-07-22 11:55 | MORECARE ---
CASE MANAGEMENT DISCHARGE SUMMARY PATIENT: NICHOLAS GARG UNIT: [id number] ADM DATE: 07/09/19 AGE: 54 : 61 SEX: F ROOM/BED: D.2217 AUTHOR: IKMO,DOC PHYSICIAN: REFERRING PHYSICIAN: BASILIO NIETO DO DATE OF SERVICE: 07/22/19 Discharge Plan Patient Name: NICHOLAS GARG Facility: [facility]:[place] : 1965 Planned Disposition: [facility] Facility Anticipated Discharge Date: Discharge Date: Expected LOS: Initial Reviewer: [id number] Initial Review Date: 07/13/2019 Generated: 07/22/19 12:55 pm Comments DCP- Discharge Planning Updated by [id number]: Tiffany Edmondson on 07/22/19 10:[address] she will be going to room [facility] DCP- Discharge Planning Updated by [email or web address]: Tiffany Edmondson on 07/22/19 10:[address] Patient has been accepted to [facility] in [place], to a skilled bed. She will need to go via EMS. IMM served and explained along with the ASH for [facility]. CM to continue to follow and assist with DC planning as needed DCP- Discharge Planning Updated by [id number]: Tiffany Edmondson on 07/21/19 8:[address] CALLED JILL FOR AN UPDATE ON PLACEMENT, I LEFT MESSAGE FOR HER TO CALL ME BACK. DCP- Discharge Planning Updated by [email or web address]: Crystal Sanders on 07/20/19 4:[address] Patient Name: NICHOLAS GARG Admission Status: Elective Accout number: [id number] Admission Date: 07-09-2019 : 1965 Admission Diagnosis: Attending: BASILIO NIETO Current LOS: 11 Anticipated DC Date: Planned Disposition: [facility] Primary Insurance: [facility] MED[employer] [employer]UTIONS Discharge Planning Comments: FAXED UPDATE TO JILL WITH THE [facility] FOR PLACEMENT WITH [facility]. Stock Speculator: Crystal Sanders DCP- Discharge Planning Updated by [id number]: Crystal Sanders on 07/18/19 2:[address] Patient Name: NICHOLAS GARG Admission Status: Elective Accout number: [id number] Admission Date: 07-09-2019 : 1965 Admission Diagnosis: Attending: BASILIO NIETO Current LOS: 9 Anticipated DC Date: Planned Disposition: [facility] Primary Insurance: [facility] MEDIC[employer] SOLUTIONS Discharge Planning Comments: VEDA WITH [facility] WORKING ON SNF AT [facility]. I FAXED HER THE JOURDAN AND THE PATIENT'S INSURANCE CARDS PER HER REQUEST. CM TO FOLLOW AND ASSIST. Stock Speculator: Crystal Sanders DCP- Discharge Planning Updated by [email or web address]: Debby Cesar on 07/16/19 1:[address] JOURDAN completed and faxed on 07/16/19 @ 1500. Debby Cesar RN, [facility] DCP- Discharge Planning Updated by [email or web address]: Tiffany Edmondson on 07/15/19 2:[address] JILL ([facility]) CALLED AND STATED THAT [place] DOES NOT HAVE AN ISOLATION ROOM. SHE WAS GOING TO COME UP HERE AND SPEAK WITH THE PATIENT ABOUT GOING TO A DIFFERENT FACILITY THAT IS ABOUT 30 MILES FROM [place]. SHE STATED THAT SHE WILL BE UP HERE LATER TODAY TO SPEAK WITH PATIENT. CM TO FOLLOW AND ASSIST NEEDED DCP- Discharge Planning Updated by [email or web address]: Tiffany Edmondson on 07/15/19 8:[address] SPOKE WITH JULITO AT [facility] AND SHE HAS NOT RECEIVED THE REFERRAL, I WILL FAX AGAIN TO START THE AUTH PROCESS DCP- Discharge Planning Updated by [email or web address]: Crystal Sanders on 07/13/19 9:[address] Patient Name: NICHOLAS GARG Admission Status: Elective Accout number: [id number] Admission Date: 07-09-2019 : 1965 Admission Diagnosis: Attending: BASILIO NIETO Current LOS: 4 Anticipated DC Date: Planned Disposition: [facility] Primary Insurance: [facility] [employer] SOLUTIONS Discharge Planning Comments: CM met with patient at bedside after explaining CM role and obtaining verbal consent. Spoke with patient about the need for SNF, she states [place] [facility] Ash signed. States doesn't have equipment but may need wheel chair and oxygen. States someone came to see her at home about setting her up with equipment. CM to follow. Stock Speculator: Crystal Sanders DCPIA - Discharge Planning Initial Assessment Updated by [id number]: Crystal Sanders on 07/13/19 10:31 am * Is the patient Alert and Oriented? Yes * PCP [facility]RI[facility] IN [place] * [facility]acy [facility] * Preadmission Environment Home with Family * ADLs Independent * Equipment None * List name and contact numbers for known caregivers / representatives who currently or will assist patient after discharge: IMTIAZ MELENDEZ, * Community resources currently utilized Home Health * Please name any agencies selected above. [facility] * Additional services required to return to the preadmission environment? Yes * Can the patient safely return to the preadmission environment? Yes * Has this patient been hospitalized within the prior 30 days at any hospital? Yes Coverage Notice Reviewer: [id number] Joyce Edmondson Notice Issued Date-Time: 07/22/2019 11:35 Notice Type: IM Discharge Notice Notice Delivered To: Patient Relationship to Patient: District Attorney Name: Delivery Method: HAND - Hand Delivered Karli Days: Prior Verbal Notification: Recipient Understood Notice: Yes Recipient Signature: Yes Med Rec Note Co-signed by Attending: Coverage Notice Comment: Reviewer: [id number] Edmondson Notice Issued Date-Time: 07/22/2019 11:35 Notice Type: Patient Choice Letter Notice Delivered To: Patient Relationship to Patient: District Attorney Name: Delivery Method: HAND - Hand Delivered Karli Days: Prior Verbal Notification: Recipient Understood Notice: Yes Recipient Signature: Yes Med Rec Note Co-signed by Attending: Coverage Notice Comment: Reviewer: [id number] Joyce Sanders Notice Issued Date-Time: 07/13/2019 10:27 Notice Type: Patient Choice Letter Notice Delivered To: Patient Relationship to Patient: District Attorney Name: Delivery Method: HAND - Hand Delivered Karli Days: Prior Verbal Notification: Recipient Understood Notice: Yes Recipient Signature: Yes Med Rec Note Co-signed by Attending: Coverage Notice Comment: [facility] DP export: 07/22/19 10:46 Patient Name: NICHOLAS GARG Page [id number] at 1155 All edits/amendments must be made on the electronic document DICTATION DATE: 07/22/19 1155 CORDAGE SALES REPRESENTATIVE: HEATHER 07/22/19 1151 RPT#: [id number] DC DATE: STATUS: ADM IN [facility] [address] [facility] [place] [address] END OF REPORT
[2019-07-22 12:37] VITALS: BP 110/58
[2019-07-22] MEDS ORDERED: VANCOMYCIN H1 G/VIA1 IV (14:42)
--- NOTE | 2019-07-22 14:55 | NUR ---
I have reviewed this patient and I concur with the Shift Assessment completed by the Licensed Practical Nurse today this shift.
--- NOTE | 2019-07-22 15:00 | MORECARE ---
CASE MANAGEMENT DISCHARGE SUMMARY PATIENT: NICHOLAS GARG UNIT: [id number] ADM DATE: 07/09/19 AGE: 54 : 61 SEX: F ROOM/BED: D.2217 AUTHOR: KIMO,DOC PHYSICIAN: REFERRING PHYSICIAN: BASILIO NIETO DO DATE OF SERVICE: 07/22/19 Discharge Plan Patient Name: NICHOLAS GARG Facility: [facility]:[place] : 1965 Planned Disposition: Nursing Home Facility Anticipated Discharge Date: Discharge Date: Expected LOS: Initial Reviewer: [id number] Initial Review Date: 07/13/2019 Generated: 07/22/19 4:00 pm Comments DCP- Discharge Planning Updated by [id number]: Stacy Hirsch on 07/22/19 1:[address] Discharge med list changed to add Vancomycin. I faxed updated med list and new discharge order to Veronique Perkins and called her to inform of med change. DCP- Discharge Planning Updated by [id number]: Tiffany Edmondson on 07/22/19 10:[address] [facility] DCP- Discharge Planning Updated by [id number]: Tiffany Edmondson on 07/22/19 10:[address] Patient has been accepted to [facility], to a skilled bed. She will need to go via EMS. IMM served and explained along with the ASH for [facility]. CM to continue to follow and assist with DC planning as needed DCP- Discharge Planning Updated by [email or web address]: Tiffany Edmondson on 07/21/19 8:[address] CALLED VERONIQUE FOR AN UPDATE ON PLACEMENT, I LEFT MESSAGE FOR HER TO CALL ME BACK. DCP- Discharge Planning Updated by [id number]: Crystal Sanders on 07/20/19 4:[address] Patient Name: NICHOLAS GARG Admission Status: Elective Accout number: [id number] Admission Date: 07-09-2019 : 1965 Admission Diagnosis: Attending: BASILIO NIETO Current LOS: 11 Anticipated DC Date: Planned Disposition: Nursing Home Facility Primary Insurance: [facility] MEDIC[employer] SOLUTIONS Discharge Planning Comments: FAXED UPDATE TO VERONIQUE WITH [facility] FOR PLACEMENT WITH [facility]. Commercial Baker Helper: Crystal Sanders DCP- Discharge Planning Updated by [id number]: Crystal Marilyn on 07/18/19 2:[address] Patient Name: NICHOLAS GARG Admission Status: Elective Accout number: [id number] Admission Date: 07-09-2019 : 1965 Admission Diagnosis: Attending: BASILIO NIETO Current LOS: 9 Anticipated DC Date: Planned Disposition: Nursing Home Facility Primary Insurance: [facility] [employer] SOLUT[employer] Discharge Planning Comments: VEDA WITH [facility] WORKING ON SNF AT [facility]. I FAXED HER THE JOURDAN AND THE PATIENT'S INSURANCE CARDS PER HER REQUEST. CM TO FOLLOW AND ASSIST. Commercial Baker Helper: Crystal Sanders DCP- Discharge Planning Updated by [email or web address]: Debby Cesar on 07/16/19 1:[address] JOURDAN completed and faxed on 07/16/19 @ 1500. Debby Cesar RN, [facility] DCP- Discharge Planning Updated by [id number]: Tiffany Edmondson on 07/15/19 2:[address] VERONIQUE ([facility]) CALLED AND STATED THAT [place] DOES NOT HAVE AN ISOLATION ROOM. SHE WAS GOING TO COME UP HERE AND SPEAK WITH THE PATIENT ABOUT GOING TO A DIFFERENT FACILITY THAT IS ABOUT 30 [address]ES FROM [place]. SHE STATED THAT SHE WILL BE UP HERE LATER TODAY TO SPEAK WITH PATIENT. CM TO FOLLOW AND ASSIST NEEDED DCP- Discharge Planning Updated by [id number]: Tiffany Edmondson on 07/15/19 8:[address] SPOKE WITH JULITO AT [facility] AND SHE HAS NOT RECEIVED THE REFERRAL, I WILL FAX AGAIN TO START THE AUTH PROCESS DCP- Discharge Planning Updated by [email or web address]: Crystal Sanders on 07/13/19 9:[address] Patient Name: NICHOLAS GARG Admission Status: Elective Accout number: [id number] Admission Date: 07-09-2019 : 1965 Admission Diagnosis: Attending: BASILIO NIETO Current LOS: 4 Anticipated DC Date: Planned Disposition: Nursing Home Facility Primary Insurance: [facility] [employer] Discharge Planning Comments: CM met with patient at bedside after explaining CM role and obtaining verbal consent. Spoke with patient about the need for SNF, she states would like to go the the nursing facility in [facility]. Ash signed. [facility] doesn't have equipment but may need wheel chair and oxygen. [facility] someone came to see her at home about setting her up with equipment. CM to follow. Commercial Baker Helper: Crystal Sanders DCPIA - Discharge Planning Initial Assessment Updated by [id number]: Crystal Sanders on 07/13/19 10:31 am * Is the patient Alert and Oriented? Yes * PCP [facility] IN [place] * Pharmacy [facility] * Preadmission Environment Home with Family * ADLs Independent * Equipment None * List name and contact numbers for known caregivers / representatives who currently or will assist patient after discharge: RICARDO GARG, IMTIAZ, * Community resources currently utilized Home Health * Please name any agencies selected above. [facility] * Additional services required to return to the preadmission environment? Yes * Can the patient safely return to the preadmission environment? Yes * Has this patient been hospitalized within the prior 30 days at any hospital? Yes Coverage Notice Reviewer: [id number] - Crystal Sanders Notice Issued Date-Time: 07/13/2019 10:27 Notice Type: Patient Choice Letter Notice Delivered To: Patient Relationship to Patient: Database Report Writer Name: Delivery Method: HAND - Hand Delivered Karli Days: Prior Verbal Notification: Recipient Understood Notice: Yes Recipient Signature: Yes Med Rec Note Co-signed by Attending: Coverage Notice Comment: [facility] FOR [facility] [place] Reviewer: [id number] Joyce Edmondson Notice Issued Date-Time: 07/22/2019 11:35 Notice Type: Patient Choice Letter Notice Delivered To: Patient Relationship to Patient: Database Report Writer Name: Delivery Method: HAND - Hand Delivered Karli Days: Prior Verbal Notification: Recipient Understood Notice: Yes Recipient Signature: Yes Med Rec Note Co-signed by Attending: Coverage Notice Comment: Reviewer: [id number] Joyce Edmondson Notice Issued Date-Time: 07/22/2019 11:35 Notice Type: IM Discharge Notice Notice Delivered To: Patient Relationship to Patient: Database Report Writer Name: Delivery Method: HAND - Hand Delivered Karli Days: Prior Verbal Notification: Recipient Understood Notice: Yes Recipient Signature: Yes Med Rec Note Co-signed by Attending: Coverage Notice Comment: Last DP export: 07/22/19 10:55 Patient Name: BRITANYNICHOLAS Page [id number] at 1500 All edits/amendments must be made on the electronic document DICTATION DATE: 07/22/191499 VP HR DIVERSITY: HEATHER 07/22/191499 RPT#: [id number] DC DATE: STATUS: ADM IN [facility] [address] [place] [address] END OF REPORT
--- NOTE | 2019-07-22 15:09 | NUR ---
DISCHARGED PATIENT TO [facility] BY AMBULANCE VIA STRETCHER. CALLED REPORT TO JO. WENT OVER DISCHARGED INSTRUCTIONS WITH PATIENT, VERBALIZED UNDERSTANDING. DENIES ANYTHING FURTHER.
--- NOTE | 2019-07-22 16:54 | NUR ---
OT NOTE: PT COMPLETED HYGIENE TASKS WITH EDUARDO Estes. PT COMPLETED BED MOB WITH EDUARDO Estes. PT COMPLETED UE AROM AXS. THANK YOU,GUSTAVO CORONA
--- NOTE | 2019-07-23 12:00 | MORECARE ---
CASE MANAGEMENT DISCHARGE SUMMARY PATIENT: NICHOLAS GARG UNIT: [id number] ADM DATE: 07/09/19 AGE: 54 : 61 SEX: F ROOM/BED: D.2217 AUTHOR: KIMO,DOC PHYSICIAN: REFERRING PHYSICIAN: BASILIO NIETO DO DATE OF SERVICE: 07/23/19 Discharge Plan Patient Name: NICHOLAS GARG Facility: [facility]:[place] : 1965 Planned Disposition: Nursing Home Facility Anticipated Discharge Date: Discharge Date: 07/22/2019 Expected LOS: 0 Initial Reviewer: [email or web address] Initial Review Date: 07/13/2019 Generated: 07/23/19 12:59 pm Comments DCP- Discharge Planning Updated by [id number]: Stacy Hirsch on 07/22/19 1:[address] Discharge med list changed to add Vancomycin. I faxed updated med list and new discharge order to Veronique Perkins and called her to inform of med change. DCP- Discharge Planning Updated by [id number]: Tiffany Edmondson on 07/22/19 10:[address] she will be going to room 501 DCP- Discharge Planning Updated by [id number]: Tiffany Edmondson on 07/22/19 10:[address] Patient has been accepted to [facility] in [place], to a skilled bed. She will need to go via EMS. IMM served and explained along with the ASH for [facility]. CM to continue to follow and assist with DC planning as needed DCP- Discharge Planning Updated by [id number]: Tiffany Edmondson on 07/21/19 8:[address] CALLED VERONIQUE FOR AN UPDATE ON PLACEMENT, I LEFT MESSAGE FOR HER TO CALL ME BACK. DCP- Discharge Planning Updated by [id number]: Crystal Sanders on 07/20/19 4:[address] Patient Name: NICHOLAS GARG Admission Status: Elective Accout number: [id number] Admission Date: 07-09-2019 : 1965 Admission Diagnosis: Attending: BASILIO NIETO Current LOS: 11 Anticipated DC Date: Planned Disposition: Nursing Home Facility Primary Insurance: [facility] MEDIC[facility] SOLUTIONS Discharge Planning Comments: FAXED UPDATE TO VERONIQUE WITH THE [facility] FOR PLACEMENT WITH [facility]. Lithographic Proofer Apprentice: Crystal Sanders DCP- Discharge Planning Updated by [email or web address]: Crystal Sanders on 07/18/19 2:[address] Patient Name: NICHOLAS GARG Admission Status: Elective Accout number: [id number] Admission Date: 07-09-2019 : 1965 Admission Diagnosis: Attending: BASILIO NIETO Current LOS: 9 Anticipated DC Date: Planned Disposition: Nursing Home Facility Primary Insurance: [facility] [employer] SOLUTIONS Discharge Planning Comments: VEDA WITH [facility] WORKING ON SNF AT [facility]. I FAXED HER THE JOURDAN AND THE PATIENT'S INSURANCE CARDS PER HER REQUEST. CM TO FOLLOW AND ASSIST. Lithographic Proofer Apprentice: Crystal Sanders DCP- Discharge Planning Updated by [email or web address]: Debby Cesar on 07/16/19 1:[address] JOURDAN completed and faxed on 07/16/19 @ 1500. Debby Cesar RN, [facility] DCP- Discharge Planning Updated by [email or web address]: Tiffany Edmondson on 07/15/19 2:[address] VERONIQUE ([facility]) CALLED AND STATED THAT [place] DOES NOT HAVE AN ISOLATION ROOM. SHE WAS GOING TO COME UP HERE AND SPEAK WITH THE PATIENT ABOUT GOING TO A DIFFERENT FACILITY THAT IS ABOUT [address]ES FROM [place]. SHE STATED THAT SHE WILL BE UP HERE LATER TODAY TO SPEAK WITH PATIENT. CM TO FOLLOW AND ASSIST NEEDED DCP- Discharge Planning Updated by [id number]: Tiffany Edmondson on 07/15/19 8:[address] SPOKE WITH JULITO AT [facility] AND SHE HAS NOT RECEIVED THE REFERRAL, I WILL FAX AGAIN TO START THE AUTH PROCESS DCP- Discharge Planning Updated by [email or web address]: Crystal Sanders on 07/13/19 9:[address] Patient Name: NICHOLAS GARG Admission Status: Elective Accout number: [id number] Admission Date: 07-09-2019 : 1965 Admission Diagnosis: Attending: BASILIO NIETO Current LOS: 4 Anticipated DC Date: Planned Disposition: Nursing Home Facility Primary Insurance: [facility] [employer]UTIONS Discharge Planning Comments: CM met with patient at bedside after explaining CM role and obtaining verbal consent. Spoke with patient about the need for SNF, she states would like to go the the nursing facility in [facility]. Ash signed. States doesn't have equipment but may need wheel chair and oxygen. States someone came to see her at home about setting her up with equipment. CM to follow. Lithographic Proofer Apprentice: Crystalphani Sanders DCPIA - Discharge Planning Initial Assessment Updated by [email or web address]: Crystal Marilyn on 07/13/19 10:31 am * Is the patient Alert and Oriented? Yes * PCP [facility]RIAN IN [place] * [facility]acy [facility] * Preadmission Environment Home with Family * ADLs Independent * Equipment None * List name and contact numbers for known caregivers / representatives who currently or will assist patient after discharge: RICARDO GARG, SON, * Community resources currently utilized Home Health * Please name any agencies selected above. [facility] * Additional services required to return to the preadmission environment? Yes * Can the patient safely return to the preadmission environment? Yes * Has this patient been hospitalized within the prior 30 days at any hospital? Yes Coverage Notice Reviewer: [id number] - Crystal Sanders Notice Issued Date-Time: 07/13/2019 10:27 Notice Type: Patient Choice Letter Notice Delivered To: Patient Relationship to Patient: Windows Administrator Name: Delivery Method: HAND - Hand Delivered Karli Days: Prior Verbal Notification: Recipient Understood Notice: Yes Recipient Signature: Yes Med Rec Note Co-signed by Attending: Coverage Notice Comment: [facility] [place] Reviewer: [id number] Joyce Edmondson Notice Issued Date-Time: 07/22/2019 11:35 Notice Type: Patient Choice Letter Notice Delivered To: Patient Relationship to Patient: Windows Administrator Name: Delivery Method: HAND - Hand Delivered Karli Days: Prior Verbal Notification: Recipient Understood Notice: Yes Recipient Signature: Yes Med Rec Note Co-signed by Attending: Coverage Notice Comment: Reviewer: [id number] Joyce Edmondson Notice Issued Date-Time: 07/22/2019 11:35 Notice Type: IM Discharge Notice Notice Delivered To: Patient Relationship to Patient: Windows Administrator Name: Delivery Method: HAND - Hand Delivered Karli Days: Prior Verbal Notification: Recipient Understood Notice: Yes Recipient Signature: Yes Med Rec Note Co-signed by Attending: Coverage Notice Comment: Last DP export: 07/22/19 2:00 Patient Name: NICHOLAS GARG Page [phone] at 1200 All edits/amendments must be made on the electronic document DICTATION DATE: 07/23/191158 CLOTH FINISHING RANGE OPERATOR CHIEF: HEATHER 07/23/191158 RPT#: [id number] DC DATE:07/22/19 STATUS: DIS IN [facility] [address] [place] [address] END OF REPORT
[2019-07-24 19:08] LABS: OVA + PARASITE EXAM Final report (())
== END 2019-07-22 15:12 | DRG 466 ==
LOC: D.CVICU 07-09 09:46 → D.ICU 07-09 09:46 → D.MS 07-09 09:46 → D.SDCHOLD 07-09 09:46 → D.ICU 07-09 19:07 → D.CVICU 07-10 12:07 → D.MS 07-11 15:59
PROVIDERS: Family Medicine; Internal Medicine Nephrology; ADMIT Orthopaedic Surgery; ATTEND Orthopaedic Surgery
PROC: 0SH908Z Insertion of Spacer into Right Hip Joint, Open Approach (ICD-10-PCS; 2019-07-09)
PROC: 0SW90JZ Revision of Synthetic Substitute in Right Hip Joint, Open Approach (ICD-10-PCS; principal; 2019-07-09 12:00)
PROC: 05HY33Z Insertion of Infusion Device into Upper Vein, Percutaneous Approach (ICD-10-PCS; 2019-07-14)
DX: T84.51XA Infection and inflammatory reaction due to internal right hip prosthesis, initial encounter (principal); E43 Unspecified severe protein-calorie malnutrition; I50.22 Chronic systolic (congestive) heart failure; E87.1 Hypo-osmolality and hyponatremia; D62 Acute posthemorrhagic anemia; N39.0 Urinary tract infection, site not specified; Z68.42 Body mass index [BMI] 45.0-49.9, adult; I95.9 Hypotension, unspecified; Z96.641 Presence of right artificial hip joint; F31.9 Bipolar disorder, unspecified; F43.10 Post-traumatic stress disorder, unspecified; I48.91 Unspecified atrial fibrillation; J45.909 Unspecified asthma, uncomplicated; J44.9 Chronic obstructive pulmonary disease, unspecified; E66.01 Morbid (severe) obesity due to excess calories; F41.9 Anxiety disorder, unspecified; B96.1 Klebsiella pneumoniae [K. pneumoniae] as the cause of diseases classified elsewhere; F17.200 Nicotine dependence, unspecified, uncomplicated; K21.9 Gastro-esophageal reflux disease without esophagitis